=== PATIENT | female | born 1945 | race Caucasian/White ===

== ENCOUNTER 2016-11-20 18:39 | Inpatient (IN) | payer OTHER ==
--- NOTE | 2016-11-20 18:57 | DR.GENAD ---
HPI - PCP Primary Care Physician: james - HPI Comment HPI Comment: INCREASING SOB, PERIPHERAL EDEMA AND LOW OXYGEN SATURATION AND ELEVATED BP FOR FEW DAYS. WORSE TIDAY. HOME MEDICATION IS NOT HELPING. - Complaint/Symptoms Chief Complaint Doctors Comments: CHEST PAIN, SOB TIMES Chief Complaint:: sob started today chest pain mid sterum. ball for a week - Nurses notes reviewed Nurses Notes Review: Yes - Source History Provided: Patient - Mode of Arrival Mode of Arrival: Wheelchair - Timing Onset of Chief Complaint: 11/20/16 Came on: Suddenly - Duration Duration: Constant Duration: Days - Severity Severity: Moderate PMH - PMH Past Medical History: Yes Past Medical History: Coronary Artery Disease, GERD, Hypertension, Hypothyroidism Past Surgical History: Yes Surgical History: Angioplasty/Stents, Cholecystectomy, Hysterectomy - Family History History of Family Medical Conditions: Yes Family Medical History: Diabetes Mellitus, Cancer, Hypertension - Social History Does any household member use tobacco: No Alcohol Use: None Do you use any recreational Drugs:: No Lives With: Family Lives Where: Home - infectious screening In the last 2 months have you had wt loss of >10#?: NO Have you had fever, night sweats or hemotysis?: No Have you traveled outside the country in the last 6 months?: No Isolation: Standard ROS - Review of Systems Constitutional: Weakness, Fatigue. negative: Chills, Fever Eyes: negative: Eye Pain, Discharge ENTM: No Symptoms Reported. negative: Ear Pain, Nose Discharge, Nose Congestion , Throat Pain Respiratoy: Non-Productive Cough, Short of Breath, Wheezing. negative: Productive Cough, Hemoptysis Cardiovascular: Chest Pain, Edema, Palpitations Gastrointestinal/Abdominal: Nausea Genitourinary: negative: Dysuria, Frequency, Hematuria Neurological: Headache, Weakness, Dizziness Musculoskeletal: Joint Pain, Joint Swelling, Muscle Pain Integumentary: negative: [place] Hematologic/Lymphatic: No Symptoms Reported, Easy Bleeding, Easy Bruising Endocrine: No Symptoms Reported All Other Systems: Reviewed and Negative PE - Vital Signs Vitals: Temperature 98.2 F Pulse Rate 120 Respiratory Rate 18 Blood Pressure [Left Arm] 112/61 Blood Pressure 116/78 O2 Sat by Pulse Oximetry 100 - General Limitations: No Limitations General Appearance: Alert - Head Head Exam: Normal Inspection - Eyes Eye exam: Normal Appearance - ENT ENT Exam: Normal External Ear Exam External Ear Exam: Normal External Inspection TM/Canal Exam: Bilateral Normal Nose Exam: Normal Nose Exam Mouth Exam: Normal Inspection Throat Exam: Normal Inspection - Neck Neck Exam: Normal Inspection, Trachea Midline - Chest Chest Inspection: Symmetric Chest Wall Rise - Respiratory Respiratory Exam: Normal Lung Sounds Bilat Respiratory Exam: Bilateral Wheezing, Bilateral Rhonchi, Upper Rhonchi, Lower Wheezing, Lower Rhonchi - Cardiovascular Cardiovascular Exam: Tachycardia - Abdominal Exam Abdominal Exam: Normal Bowel Sounds, Soft. negative: Tenderness - Extremities Extremities Exam: Edema - Neurologic Neurological Exam: Alert, Oriented X3, CN II-XII Intact, Normal Gait, Reflexes Normal. negative: Motor Sensory Deficit - Psychiatric Psychiatric Exam: Normal Affect, Normal Mood, Anxious - Skin Skin Exam: Erythema MDM - Additional Information Additional Information Obtained From: Family - Differential Diagnosis Differential Diagnosis: CHEST PAIN, RESP DISTRESS, CHF, COPD, PNEUMONIA Course - Treatment Treatment: SEE ORDERS - Consultation Consultation Comments: DISCUSS PATIENT WITH DR. LEON. HE WILL ADMIT PATIENT. - Education/Counseling Education/Counseling: Patient, Family, Education Educated On: Treatment, Diagnosis, Needs for Follow Up ROR - Labs Reviewed Laboratory Results Reviewed?: Yes Result Diagrams: 11/21/16 04:50 11/21/16 04:50 Laboratory: WBC 4.8 X10^3/uL (3.6-10.0) 11/20/16 19:08 RBC 3.48 X10^6/uL (3.5-5.4) L 11/20/16 19:08 Hgb 9.4 g/dL (12.0-16.0) L 11/20/16 19:08 Hct 28.5 % (36.0-47.0) L 11/20/16 19:08 MCV 81.8 fL (80.0-100.0) 11/20/16 19:08 MCH 27.0 pg (27.0-34.0) 11/20/16 19:08 MCHC 33.0 g/dL (33.0-35.0) 11/20/16 19:08 RDW 15.1 % (11.6-16.5) 11/20/16 19:08 Plt Count 195 X10^3/uL (150.0-450.0) 11/20/16 19:08 MPV 7.9 fL (7.4-11.0) 11/20/16 19:08 Neut % 70.6 % (42.0-75.0) 11/20/16 19:08 Lymph % 19.1 % (21.0-51.0) L 11/20/16 19:08 [place] % 7.3 % (0.0-13.0) 11/20/16 19:08 Eos % 2.2 % (0.9-2.9) 11/20/16 19:08 Baso % 0.8 % (0.2-1.0) 11/20/16 19:08 Neut # 3.4 x10^3/uL (2.2-4.8) 11/20/16 19:08 Lymph # 0.9 X10^3/uL (1.3-2.9) L 11/20/16 19:08 [place] # 0.4 x10^3/uL (0.3-0.8) 11/20/16 19:08 Eos # 0.1 x10^3/uL (0.0-0.2) 11/20/16 19:08 Baso # 0.0 X10^3/uL (0.0-0.1) 11/20/16 19:08 Absolute Nucleated RBC 0.1 /100WBC 11/20/16 19:08 B-Natriuretic Peptide 194 pg/mL (0-79) H 11/20/16 19:08 - XRAY XRAY Interpreted by: Radiologist - EKG Rhythm: Afib (CONTROL RATE.) - Diagnosis Discharge Problem: Bronchitis CHF (congestive heart failure) Qualifiers: Congestive heart failure type: combined Congestive heart failure chronicity: acute on chronic Qualified Code(s): I50.43 - Acute on chronic combined systolic (congestive) and diastolic (congestive) heart failure Chest pain Qualifiers: Chest pain type: precordial pain Qualified Code(s): R07.2 - Precordial pain - Discharge Plan Disposition: ADMITTED INPATIENT Condition: Stable - Follow ups/Referrals - Instructions
[2016-11-20 19:20] LABS: BASOPHILS % (AUTO) 0.8 % (0.2-1.0); EOSINOPHILS # (AUTO) 0.1 x10^3/uL (0.0-0.2); EOSINOPHILS % (AUTO) 2.2 % (0.9-2.9); HEMATOCRIT 28.5 % (36.0-47.0); HEMOGLOBIN 9.4 g/dL (12.0-16.0); LYMPHOCYTES # (AUTO) 0.9 X10^3/uL (1.3-2.9); LYMPHOCYTES % (AUTO) 19.1 % (21.0-51.0); MEAN CORPUSCULAR VOLUME 81.8 fL (80.0-100.0); MEAN PLATELET VOLUME 7.9 fL (7.4-11.0); MONOCYTES # (AUTO) 0.4 x10^3/uL (0.3-0.8); MONOCYTES % (AUTO) 7.3 % (0.0-13.0); NEUTROPHILS # (AUTO) 3.4 x10^3/uL (2.2-4.8); NEUTROPHILS % (AUTO) 70.6 % (42.0-75.0); PLATELET COUNT 195 X10^3/uL (150.0-450.0); RED BLOOD COUNT 3.48 X10^6/uL (3.5-5.4); RED CELL DISTRIBUTION WIDTH 15.1 % (11.6-16.5); WHITE BLOOD COUNT 4.8 X10^3/uL (3.6-10.0)
[2016-11-20 19:32] LABS: B-TYPE NATRIURETIC PEPTIDE 194 pg/mL (0-79)
[2016-11-20 19:32] LABS: BILIRUBIN,URINE NEGATIVE (NEGATIVE); BLOOD/HEMOGLOBIN,URINE NEGATIVE (NEGATIVE); GLUCOSE, URINE NEGATIVE (NEGATIVE); KETONES,URINE NEGATIVE (NEGATIVE); LEUKOCYTE ESTERASE ,URINE NEGATIVE (NEGATIVE); NITRITES,URINE NEGATIVE (NEGATIVE); PROTEIN,URINE 1+ (NEGATIVE); UROBILINOGEN,URINE NORMAL (NORMAL)
[2016-11-20 19:36] LABS: BLOOD UREA NITROGEN 14 mg/dL (7-18); CALCIUM 8.8 mg/dL (8.5-10.1); CARBON DIOXIDE 28.8 mmol/L (21-32); CHLORIDE 106 mmol/L (98-107); CREATININE 0.72 mg/dL (0.55-1.02); SODIUM 142 mmol/L (136-145); TROPONIN I 0.02 ng/mL (0-1.5); eGFR BLACK RACES > 60 (>60); eGFR NON BLACK RACES > 60 (>60)
[2016-11-20] MEDS ORDERED: MORPHINE SULFATE INJ 4 MG ONE ×2 (19:39→21:04)
[2016-11-20] MEDS ORDERED: ZOFRAN INJ 4 MG VIAL ONE (19:39)
[2016-11-20] MEDS ORDERED: MORPHINE SULFATE INJ 4 MG IVP ONE ×2 (19:39→20:56)
[2016-11-20] MEDS ORDERED: ZOFRAN INJ 4 MG VIAL IVP ONE ×2 (19:39→21:30)
--- NOTE | 2016-11-20 19:39 | RAD ---
HISTORY: 71-year-old female with chest pain and shortness of breath. Study: Frontal view of the chest. Comparison: Chest radiographs November 18, 2015 Findings: The trachea is midline. Interval exacerbation of cardiomegaly with moderate bilateral pulmonary roosevelt a. No focal consolidation, effusion or pneumothorax with low lung volumes. Soft tissues are unremarka ble. Osseous structures are unremarkable. IMPRESSION: 1. Exacerbation of cardiomegaly with moderate pulmonary edema. Reported By:
[2016-11-20 19:40] LABS: AMORPHOUS SEDIMENT,UR TRACE /HPF (NEGATIVE); APPEARANCE,URINE CLEAR (CLEAR); BACTERIA,URINE 1+ /HPF (NEGATIVE); COLOR,URINE PALE YELLOW (YELLOW); RBC,URINE 0-1 /HPF (NEGATIVE); SQUAMOUS EPITHELIAL CELL,UR MANY /HPF (NEGATIVE)
[2016-11-20 19:40] LABS: ALANINE AMINOTRANSFERASE 15 Units/L (12-78); ALBUMIN 3.7 g/dL (3.4-5.0); ALKALINE PHOSPHATASE 62 Units/L (46-116); ASPARTATE AMINO TRANSFERASE 10 Units/L (15-37); CREATINE KINASE 49 Units/L (26-192); CREATINE KINASE MB < 1.0 ng/mL (0-4.0)
[2016-11-20] MEDS ORDERED: LASIX IVP ONE ×2 (20:07→20:08)
--- NOTE | 2016-11-20 20:20 | CT ---
CT HEAD WITHOUT CONTRAST CLINICAL HISTORY: 71-year-old female with severe headache. COMPARISON: None. TECHNIQUE: Multiple, non-contrasted axial CT images were obtained from the skull base to the cranial vertex. Coronal and sagittal reformats were performed. FINDINGS: There are no abnormal intra- or extra-axial fluid collections, midline shift, or mass effec t. Lee-white differentiation is normal. Partially empty sella. Global cortical involutional changes are present that are the advanced for the patient's stated age. The ventricular system is mildly enla rged but commensurate with the degree of sulcal prominence. Periventricular and supraventricular whit e matter hypodensity is present that is nonspecific in appearance, but most likely to represent micro vascular ischemic changes. Atherosclerotic vascular calcification is present within the carotid sipho ns and distal vertebral arteries. The imaged paranasal sinuses, mastoid air cells, and tympanic spaces are clear. IMPRESSION: 1. No definite evidence of an acute intracranial process. If clinical concern persists, consider MRI/ MRA brain. 2. Moderate microvascular white matter ischemic changes, with associated volume loss. Reported By:
[2016-11-20] MEDS ORDERED: PEPCID 20 MG IV PREMIX* 20 MG/50 ML BAG IV ONE ×2 (20:56→21:03)
[2016-11-20] MEDS ORDERED: NS 250 ML IV 250 ML IV ONE (21:04)
[2016-11-20] MEDS ORDERED: ROCEPHIN VIAL 1 GM 1 GM in NS 50 ML IV + SPIKE MINIBAG* 50 ML IV SCH (21:45)
[2016-11-20] MEDS ORDERED: ROCEPHIN 1 GM IV PREMIX * OUT OF STOCK 50 ML IV ONE (21:59)
[2016-11-20] MEDS: TYLENOL 325 MG TAB PO PRN (22:31)
[2016-11-20 23:24] VITALS: BMI 32.1
[2016-11-20] MEDS: PEPCID 20 MG IV PREMIX* 20 MG/50 ML BAG IV SCH (23:34)
[2016-11-21 01:13] LABS: CKMB % 1.9 % (<4); CREATINE KINASE 54 Units/L (26-192); CREATINE KINASE MB < 1.0 ng/mL (0-4.0); TROPONIN I 0.02 ng/mL (0-1.5)
[2016-11-21 05:18] LABS: BASOPHILS % (AUTO) 0.8 % (0.2-1.0); EOSINOPHILS # (AUTO) 0.1 x10^3/uL (0.0-0.2); EOSINOPHILS % (AUTO) 1.4 % (0.9-2.9); HEMATOCRIT 30.4 % (36.0-47.0); HEMOGLOBIN 10.1 g/dL (12.0-16.0); LYMPHOCYTES # (AUTO) 0.8 X10^3/uL (1.3-2.9); MEAN CORPUSCULAR HGB CONC 33.3 g/dL (33.0-35.0); MEAN CORPUSCULAR VOLUME 81.2 fL (80.0-100.0); MONOCYTES # (AUTO) 0.5 x10^3/uL (0.3-0.8); MONOCYTES % (AUTO) 9.6 % (0.0-13.0); NEUTROPHILS # (AUTO) 3.5 x10^3/uL (2.2-4.8); NEUTROPHILS % (AUTO) 71.2 % (42.0-75.0); PLATELET COUNT 191 X10^3/uL (150.0-450.0); RED BLOOD COUNT 3.74 X10^6/uL (3.5-5.4); WHITE BLOOD COUNT 4.9 X10^3/uL (3.6-10.0)
[2016-11-21 05:26] LABS: ALANINE AMINOTRANSFERASE 14 Units/L (12-78); ALBUMIN 3.6 g/dL (3.4-5.0); ALKALINE PHOSPHATASE 57 Units/L (46-116); ASPARTATE AMINO TRANSFERASE 13 Units/L (15-37); BLOOD UREA NITROGEN 11 mg/dL (7-18); CALCIUM 8.8 mg/dL (8.5-10.1); CHLORIDE 105 mmol/L (98-107); CHOL/HDL RATIO 2.2 (0.0-5.0); CHOLESTEROL 114 mg/dL (0-200); CREATININE 0.82 mg/dL (0.55-1.02); HDL CHOLESTEROL 52 mg/dL (40-60); MAGNESIUM 1.8 mg/dL (1.7-2.9); SODIUM 144 mmol/L (136-145); TOTAL PROTEIN 6.9 g/dL (6.4-8.2); TRIGLYCERIDES 78 mg/dL (0-150); eGFR BLACK RACES > 60 (>60); eGFR NON BLACK RACES > 60 (>60)
[2016-11-21] MEDS: MORPHINE SULFATE INJ 4 MG IVP PRN ×4 (05:27→17:50)
[2016-11-21 08:17] LABS: CKMB % 0.9 % (<4); CREATINE KINASE 107 Units/L (26-192); CREATINE KINASE MB < 1.0 ng/mL (0-4.0); TROPONIN I 0.02 ng/mL (0-1.5)
[2016-11-21] MEDS: LASIX IVP SCH ×2 (08:50→21:12)
[2016-11-21] MEDS: PEPCID 20 MG IV PREMIX* 20 MG/50 ML BAG IV SCH ×2 (08:50→21:23)
[2016-11-21] MEDS: TYLENOL 325 MG TAB PO PRN (08:58)
[2016-11-21] MEDS ORDERED: XARELTO PO SCH (10:00)
[2016-11-21] MEDS: ROCEPHIN VIAL 1 GM 1 GM in NS 50 ML IV 50 ML IV SCH (10:26)
[2016-11-21] MEDS ORDERED: KLONOPIN TAB 0.5 MG PO PRN (10:45)
[2016-11-21] MEDS ORDERED: K-RIDER 10 MEQ/NS 100 ML 10 MEQ/100 ML BAG IV PRN (10:49)
[2016-11-21] MEDS ORDERED: K-LYTE EFFERVESCENT PO PRN (10:49)
[2016-11-21] MEDS ORDERED: K-DUR TAB 20 MEQ PO PRN (10:49)
[2016-11-21] MEDS ORDERED: POTASSIUM CHLORIDE LIQ 20 MEQ UDC PO PRN (10:49)
[2016-11-21] MEDS: ASPIRIN EC 81 MG PO SCH (12:03)
[2016-11-21] MEDS: COREG TAB 12.5 MG PO SCH ×2 (12:04→21:12)
[2016-11-21] MEDS: PROTONIX TAB 40 MG PO SCH ×2 (12:04→21:11)
[2016-11-21] MEDS: SYNTHROID 112 mcg TAB PO SCH (12:04)
[2016-11-21] MEDS ORDERED: PATIENT'S HOME MEDICATION (Hydralazine Hcl [Hydralazine Hcl 50 Mg] 50 MG) PO SCH (14:00)
[2016-11-21] MEDS: APRESOLINE TAB 25 MG PO SCH ×2 (14:36→21:11)
[2016-11-21] MEDS: NORCO 10/325 TAB PO PRN (15:01)
[2016-11-21] MEDS: ELIQUIS PO SCH ×2 (17:00→21:11)
--- NOTE | 2016-11-21 21:04 | DR.H&P ---
H&P - History & Physical for Day of: H&P Date: 11/20/16 - Chief Complaint Chief Complaint: CHEST PAIN, SHORT OF BREATH - Allergies Allergies/Adverse Reactions: Allergies Allergy/AdvReac Type Severity Reaction Status Date / Time No Known Drug Allergies Allergy Verified 11/20/16 18:44 - History of Present Illness History of Present Illness: is a 71 year old patient of ours who presented to the emergency room with reports of increasing shortness of breath. Patient reports symptoms started gradually three weeks ago and became worse today. Associated symptoms are chest pain that is located at mid sternum, lower extremity edema, headache, elevated blood pressure and decreased oxygen saturation. Patient rates pain to head as an 8/10. She was noted with rhonchi and wheezing in bilateral lung [place]. On arrival to the ER, vitals were 98.2, 120, 18, 100% RA, 116/78. A CBC, CMP, Chest xray, brain CT, and EKG were obtained. Abnormal lab values include the followin.48, Hgb 9.4, Hct 28.5, Glucose 104, AST 10, BNP 194. Urinalysis reported: Protein 1+, RBC 0-1, WBC 0-2 , Bacteria 1+, Culture Pending. Chest xray revealed: Exacerbation of cardiomegaly with moderate pulmonary edema. Brain CT reported: No definite evidence of an acute intracranial process. If clinical concern persists, consider MRI/MRA brain. Moderate microvascular white matter ischemic changes, with associated volume loss. Patients EKG revealed atrial fibrillation with no known history. Rate is noted to be controlled at this time. We admitted patient for further treatment and evaluation of pulmonary edema and congestive heart failure. Will follow up with labs in the morning and obtain serial cardiac enzymes and EKGs. - Past Medical History Past Medical History: Coronary Artery Disease, GERD, Hypertension, Hypothyroidism - Past Surgical History Surgical History: Angioplasty/Stents, Cholecystectomy, Hysterectomy - Family History Family Medical History: Diabetes Mellitus, Cancer, Hypertension - Social History Does patient currently use any type of tobacco product: No Have you used tobacco products in the last 12 months: No Type of Tobacco Use: None Does any household member use tobacco: No Alcohol Use: None Drug Use: None - Medications Home Medications: Aspirin EC [ASPIRIN EC 81 MG *] 81 mg PO DAILY 11/20/16 [History Confirmed 11/20] Carvedilol [Coreg Tab 12.5 mg] 12.5 mg PO BID 11/20/16 [History Confirmed ] Clonazepam [Klonopin Tab 0.5 mg] 0.25 mg PO BID PRN 11/20/16 [History Confirmed 11/20/16] Clonazepam [Klonopin Tab 0.5 mg] 1 - 2 tabs PO HS PRN 11/20/16 [History Confirmed 11/20/16] Furosemide [LASIX TAB 20 MG *] 1 tab PO DAILY 11/20/16 [History Confirmed ] Hydralazine HCl [Hydralazine HCl 50 mg] 50 mg PO TID 11/20/16 [History Confirmed 11/20/16] Hydrocodone/Acetaminophen [Hydrocodone/Acetaminophen 10-325 mg] 1 tab PO QID [History Confirmed 11/20/16] Isosorbide Mononitrate [IMDUR 30 MG *] 1 tab PO DAILY 11/20/16 [History Confirmed 11/20/16] Levothyroxine Sodium [SYNTHROID 112 mcg *] 1 tab PO DAILY 11/20/16 [History Confirmed 11/20/16] Pantoprazole Sodium [Protonix] 40 mg PO BID 11/20/16 [History Confirmed 11/20/16 ] Potassium Chloride [Micro K Exten Cap 10 Meq] 10 meq PO DAILY 11/20/16 [History Confirmed 11/20/16] - Review of Systems Constitutional: No Symptoms Reported Eyes: No Symptoms Reported ENT: No Symptoms Reported Respiratory: See HPI, Cough, Shortness of Breath, Wheezing Cardiovascular: Chest Pain Gastrointestinal: Nausea Neurological: See HPI - Physical Exam Vital Signs: Temperature 98.3 F Pulse Rate [Apical] 87 Pulse Rate 120 Respiratory Rate 20 Blood Pressure [Right Arm] 131/66 Blood Pressure [Left Arm] 112/61 Blood Pressure 116/78 O2 Sat by Pulse Oximetry 98 Oriented: Normal Eyes: Blurred Vision Ear: Normal Nose: Normal Throat: Normal Respiratory: Wheezes Throughout Cardiovascular: Tachycardia : Normal Auscultation: Bowel Sounds: Normal Palpation: Normal Tenderness: Normal Skin: Red Musculoskeletal: Normal Psychiatric: Normal Mood Description: Calm Affect: Normal Speech Pattern: Clear - Assessment/Plan (1) Atrial fibrillation Qualifiers: Atrial fibrillation type: unspecified Qualified Code(s): I48.91 - Unspecified atrial fibrillation Status: Acute (2) CHF (congestive heart failure) Qualifiers: Congestive heart failure type: combined Congestive heart failure chronicity : acute on chronic Qualified Code(s): I50.43 - Acute on chronic combined systolic (congestive) and diastolic (congestive) heart failure Status: Acute (3) Chest pain Qualifiers: Chest pain type: precordial pain Qualified Code(s): R07.2 - Precordial pain Status: Acute
[2016-11-21] MEDS: KLONOPIN TAB 0.5 MG PO PRN (21:21)
[2016-11-22] MEDS: APRESOLINE TAB 25 MG PO SCH ×3 (05:25→21:07)
[2016-11-22] MEDS: NORCO 10/325 TAB PO PRN ×3 (05:28→17:01)
[2016-11-22 05:44] LABS: BASOPHILS % (AUTO) 0.7 % (0.2-1.0); EOSINOPHILS # (AUTO) 0.1 x10^3/uL (0.0-0.2); EOSINOPHILS % (AUTO) 1.6 % (0.9-2.9); HEMATOCRIT 35.6 % (36.0-47.0); HEMOGLOBIN 11.8 g/dL (12.0-16.0); LYMPHOCYTES % (AUTO) 16.1 % (21.0-51.0); MEAN CORPUSCULAR HEMOGLOBIN 27.7 pg (27.0-34.0); MEAN PLATELET VOLUME 8.3 fL (7.4-11.0); MONOCYTES # (AUTO) 0.7 x10^3/uL (0.3-0.8); MONOCYTES % (AUTO) 11.1 % (0.0-13.0); NEUTROPHILS # (AUTO) 4.4 x10^3/uL (2.2-4.8); NEUTROPHILS % (AUTO) 70.5 % (42.0-75.0); PLATELET COUNT 207 X10^3/uL (150.0-450.0); RED BLOOD COUNT 4.24 X10^6/uL (3.5-5.4); RED CELL DISTRIBUTION WIDTH 14.8 % (11.6-16.5); WHITE BLOOD COUNT 6.3 X10^3/uL (3.6-10.0)
[2016-11-22 05:57] LABS: ALANINE AMINOTRANSFERASE 14 Units/L (12-78); ALBUMIN 3.6 g/dL (3.4-5.0); ALKALINE PHOSPHATASE 60 Units/L (46-116); ASPARTATE AMINO TRANSFERASE 12 Units/L (15-37); BLOOD UREA NITROGEN 15 mg/dL (7-18); CALCIUM 8.8 mg/dL (8.5-10.1); CARBON DIOXIDE 32.2 mmol/L (21-32); CHLORIDE 103 mmol/L (98-107); CREATININE 1.05 mg/dL (0.55-1.02); SODIUM 143 mmol/L (136-145); eGFR BLACK RACES > 60 (>60); eGFR NON BLACK RACES 55 (>60)
--- NOTE | 2016-11-22 06:10 | RAD ---
HISTORY: Chest pain Study: Chest AP portable Comparison: November 20, 2016 Findings: The trachea is midline. The cardiac silhouette is enlarged. No congestive heart failure is noted.. The lungs are clear without focal infiltrate or effusion. The bony thorax is unremarkable. IMPRESSION: 1. Cardiomegaly without congestive heart failure 2. No infiltrates Reported By:
[2016-11-22] MEDS ORDERED: K-RIDER 10 MEQ/NS 100 ML 10 MEQ/100 ML BAG IV PRN ×2 (06:32→10:19)
[2016-11-22] MEDS ORDERED: POTASSIUM CHLORIDE LIQ 20 MEQ UDC PO PRN ×2 (06:32→10:19)
[2016-11-22] MEDS ORDERED: K-DUR TAB 20 MEQ PO PRN (06:32)
[2016-11-22] MEDS ORDERED: K-LYTE EFFERVESCENT PO PRN ×2 (06:32→10:19)
[2016-11-22] MEDS: KLONOPIN TAB 0.5 MG PO PRN ×2 (07:59→21:58)
[2016-11-22] MEDS: MORPHINE SULFATE INJ 4 MG IVP PRN ×3 (07:59→21:59)
[2016-11-22] MEDS: ROCEPHIN VIAL 1 GM 1 GM in NS 50 ML IV 50 ML IV SCH (08:38)
[2016-11-22] MEDS: PROTONIX TAB 40 MG PO SCH ×2 (08:39→20:24)
[2016-11-22] MEDS: ELIQUIS PO SCH ×2 (08:39→20:24)
[2016-11-22] MEDS: ASPIRIN EC 81 MG PO SCH (08:39)
[2016-11-22] MEDS: SYNTHROID 112 mcg TAB PO SCH (08:39)
[2016-11-22] MEDS: LASIX IVP SCH ×2 (08:39→20:23)
[2016-11-22] MEDS: PEPCID 20 MG IV PREMIX* 20 MG/50 ML BAG IV SCH ×2 (08:39→20:24)
[2016-11-22] MEDS: COREG TAB 12.5 MG PO SCH ×2 (08:39→20:24)
[2016-11-22] MEDS ORDERED: IMDUR PO SCH (09:00)
[2016-11-22] MEDS ORDERED: NS 250 ML IV 250 ML IV ONE ×4 (09:38→22:04)
[2016-11-22 09:44] LABS: CKMB % 2.4 % (<4); CREATINE KINASE 42 Units/L (26-192); CREATINE KINASE MB < 1.0 ng/mL (0-4.0); TROPONIN I < 0.02 ng/mL (0-1.5)
[2016-11-22] MEDS ORDERED: LANOXIN INJ IVP ONE (10:19)
[2016-11-22] MEDS ORDERED: TYLENOL 325 MG TAB PO PRN (10:19)
[2016-11-22] MEDS ORDERED: KLONOPIN TAB 0.5 MG PO PRN (10:19)
[2016-11-22] MEDS ORDERED: CARDIZEM INJ 125 MG VIAL ONE (10:23)
[2016-11-22] MEDS ORDERED: NS 100 ML IV 100 ML IV ONE (10:26)
[2016-11-22] MEDS ORDERED: CARDIZEM INJ 125 MG VIAL 125 MG in NS 100 ML IV 100 ML IV PRN (10:35)
[2016-11-22 13:03] LABS: CKMB % 2.6 % (<4); CREATINE KINASE 38 Units/L (26-192); CREATINE KINASE MB < 1.0 ng/mL (0-4.0); TROPONIN I 0.02 ng/mL (0-1.5)
[2016-11-22 16:36] LABS: CKMB % 3.1 % (<4); CREATINE KINASE 32 Units/L (26-192); CREATINE KINASE MB < 1.0 ng/mL (0-4.0); TROPONIN I 0.02 ng/mL (0-1.5)
--- NOTE | 2016-11-22 18:32 | PCM.PROG ---
Progress Note - Progress Note for Day of Date: 11/21/16 - Subjective Subjective: WAS ADMITTED FOR PULMONARY EDEMA, CHF, CHEST PAIN, AND ATRIAL FIBRILLATION. TODAY, SHE IS ALERT AND ORIENTED, LYING IN BED ON MORNING ROUNDS. SHE VOICES COMPLAINTS OF SHORTNESS OF BREATH AND CHEST PAIN. PATIENT REPORTS THAT PAIN IS MID STERNUM AND COMES AND GOES. ON EXAMINATION, LUNGS ARE NOTED WITH WHEEZING BILATERALLY TO AUSCULTATION. ABDOMEN IS ROUND, SOFT, AND NON -TENDER. SHE IS NOTED ON NASAL CANNULA WITH OXYGEN AT 2LPM. SHE IS NOTED ON TELEMERY. HER VITAL SIGNS THIS MORNING ARE 97.7-85-18-100%-132/82. CBC, CMP, AND EKG WERE OBTAINED. ABNORMAL LABS INCLUDE THE FOLLOWING: HGB 10.1, HCT 30.4, POTASSIUM 3.2, AST 13. CARDIAC ENZYMES WERE NEGATIVE. LATEST EKG REPORTED ATRIAL FIBRILLATION, NONSPECIFIC INTRAVENTRICULAR CONDUCTION DELAY, MINIMAL ST DEPRESSION. HEART RATE 72 AT THE CURRENT TIME. PATIENT REPORTS A CARDIAC HISTORY , BUT DOESNT RECALL EVER BEING DIAGNOSED WITH ATRIAL FIBRILLATION. PATIENT IS CURRENTLY UNDER THE CARE OF IN [place]. WE WILL START PATIENT ON ELIQUIS 5MG PO BID, OBTAIN AN ECHOCARDIOGRAM, AND REPEAK EKGs. WE WILL OBTAIN A CBC, CMP, AND CHEST XRAY IN THE MORNING AND CONTINUE TO MONITOR PATIENT. - Past Medical Family Social History Past Med/Fam/Surg Hx: No changes since H&P Allergies: Allergies No Known Drug Allergies Allergy (Verified 11/20/16 18:44) - Review of Systems ROS: No change since H&P - Vital Signs and I&O's Vital Signs: Temperature 97.8 F Pulse Rate [Apical] 69 Pulse Rate 141 Respiratory Rate 16 Blood Pressure [Right Arm] 102/76 Blood Pressure [Left Arm] 112/61 Blood Pressure 116/78 O2 Sat by Pulse Oximetry 97 Intake and Output: Intake & Output 11/20/16 11/21/16 11/22/16 11/23/16 11:59 11:59 11:59 11:59 Intake Total 120 1098 337 Output Total 5150 1700 Balance -4880 -732 337 - Physical Exam Oriented: Normal Eyes: Blurred Vision Ear: Normal Nose: Normal Throat: Normal Respiratory: Generalized, Wheezes Cardiovascular: Tachycardia : Normal Auscultation: Bowel Sounds: Normal Palpation: Normal Tenderness: Normal Skin: Normal, Red Musculoskeletal: Normal Psychiatric: Normal Mood Description: Calm Affect: Normal Speech Pattern: Clear, Appropriate - Laboratory and Diagnostics Result Diagrams: 11/22/16 03:20 11/22/16 12:26 Labs: 11/20/16 20:18 Urine,[place] Urine Culture - Final Laboratory WBC 6.3 X10^3/uL (3.6-10.0) 11/22/16 03:20 RBC 4.24 X10^6/uL (3.5-5.4) 11/22/16 03:20 Hgb 11.8 g/dL (12.0-16.0) L 11/22/16 03:20 Hct 35.6 % (36.0-47.0) L 11/22/16 03:20 MCV 84.0 fL (80.0-100.0) 11/22/16 03:20 MCH 27.7 pg (27.0-34.0) 11/22/16 03:20 MCHC 33.0 g/dL (33.0-35.0) 11/22/16 03:20 RDW 14.8 % (11.6-16.5) 11/22/16 03:20 Plt Count 207 X10^3/uL (150.0-450.0) 11/22/16 03:20 MPV 8.3 fL (7.4-11.0) 11/22/16 03:20 Neut % 70.5 % (42.0-75.0) 11/22/16 03:20 Lymph % 16.1 % (21.0-51.0) L 11/22/16 03:20 [place] % 11.1 % (0.0-13.0) 11/22/16 03:20 Eos % 1.6 % (0.9-2.9) 11/22/16 03:20 Baso % 0.7 % (0.2-1.0) 11/22/16 03:20 Neut # 4.4 x10^3/uL (2.2-4.8) 11/22/16 03:20 Lymph # 1.0 X10^3/uL (1.3-2.9) L 11/22/16 03:20 [place] # 0.7 x10^3/uL (0.3-0.8) 11/22/16 03:20 Eos # 0.1 x10^3/uL (0.0-0.2) 11/22/16 03:20 Baso # 0.0 X10^3/uL (0.0-0.1) 11/22/16 03:20 Absolute Nucleated RBC 0.1 /100WBC 11/22/16 03:20 INR Target Range - 11/21/16 04:50 INR 1.13 (0.8-1.3) 11/21/16 04:50 PTT 33.6 SECONDS (22.9-36.5) 11/21/16 04:50 PTT Comment - 11/21/16 04:50 Sodium 143 mmol/L (136-145) 11/22/16 03:20 Corrected Sodium TNP 11/22/16 03:20 Potassium 4.1 mmol/L (3.5-5.1) 11/22/16 12:26 Chloride 103 mmol/L (98-107) 11/22/16 03:20 Carbon Dioxide 32.2 mmol/L (21-32) H 11/22/16 03:20 BUN 15 mg/dL (7-18) 11/22/16 03:20 Creatinine 1.05 mg/dL (0.55-1.02) H 11/22/16 03:20 Est GFR (MDRD) Af Amer > 60 (>60) 11/22/16 03:20 Est GFR (MDRD) Non-Af 55 (>60) L 11/22/16 03:20 Glucose 103 mg/dL (65-99) H 11/22/16 03:20 Calcium 8.8 mg/dL (8.5-10.1) 11/22/16 03:20 Corrected Calcium TNP 11/22/16 03:20 Magnesium 1.8 mg/dL (1.7-2.9) 11/21/16 04:50 Total Bilirubin 0.60 mg/dL (0.2-1.0) 11/22/16 03:20 AST 12 Units/L (15-37) L 11/22/16 03:20 ALT 14 Units/L (12-78) 11/22/16 03:20 Alkaline Phosphatase 60 Units/L (46-116) 11/22/16 03:20 Creatine Kinase 32 Units/L (26-192) 11/22/16 15:49 CK-MB (CK-2) < 1.0 ng/mL (0-4.0) 11/22/16 15:49 CK/CKMB % Calc 3.1 % (<4) 11/22/16 15:49 Troponin I 0.02 ng/mL (0-1.5) 11/22/16 15:49 B-Natriuretic Peptide 194 pg/mL (0-79) H 11/20/16 19:08 Total Protein 7.0 g/dL (6.4-8.2) 11/22/16 03:20 Albumin 3.6 g/dL (3.4-5.0) 11/22/16 03:20 Globulin 3.4 g/dL (2.5-4.5) 11/22/16 03:20 Albumin/Globulin Ratio 1.1 Ratio (1.1-2.1) 11/22/16 03:20 Triglycerides 78 mg/dL (0-150) 11/21/16 04:50 Cholesterol 114 mg/dL (0-200) 11/21/16 04:50 LDL Cholesterol, Calc 46 mg/dL (0-100) 11/21/16 04:50 HDL Cholesterol 52 mg/dL (40-60) 11/21/16 04:50 Cholesterol/HDL Ratio 2.2 (0.0-5.0) 11/21/16 04:50 Specimen Type Clean catch urine 11/20/16 19:25 Urine Color Pale yellow (YELLOW) 11/20/16 19:25 Urine Appearance Clear (CLEAR) 11/20/16 19:25 Urine pH 7.0 (5.0 - 8.0) 11/20/16 19:25 Ur Specific [place] 1.010 (1.000-1.030) 11/20/16 19:25 Urine Protein 1+ (NEGATIVE) 11/20/16 19:25 Urine Glucose (UA) Negative (NEGATIVE) 11/20/16 19:25 Urine Ketones Negative (NEGATIVE) 11/20/16 19:25 Urine Occult Blood Negative (NEGATIVE) 11/20/16 19:25 Urine Nitrite Negative (NEGATIVE) 11/20/16 19:25 Urine Bilirubin Negative (NEGATIVE) 11/20/16 19:25 Urine Urobilinogen Normal (NORMAL) 11/20/16 19:25 Ur Leukocyte Esterase Negative (NEGATIVE) 11/20/16 19:25 Urine RBC 0-1 /HPF (NEGATIVE) 11/20/16 19:25 Urine WBC 0-2 /HPF (NEGATIVE) 11/20/16 19:25 Ur Squamous Epith Cells Many /HPF (NEGATIVE) 11/20/16 19:25 Amorphous Sediment Trace /HPF (NEGATIVE) 11/20/16 19:25 Urine Bacteria 1+ /HPF (NEGATIVE) 11/20/16 19:25 Ur Culture Indicated? No/not indicated 11/20/16 19:25 - Plan (1) CHF (congestive heart failure) Status: Acute Qualifiers: Congestive heart failure type: combined Congestive heart failure chronicity : acute on chronic Qualified Code(s): I50.43 - Acute on chronic combined systolic (congestive) and diastolic (congestive) heart failure Plan: lasix 40mg iv bid, duonebs, supplemental oxygen, continue to monitor (2) Atrial fibrillation Status: Acute Qualifiers: Atrial fibrillation type: unspecified Qualified Code(s): I48.91 - Unspecified atrial fibrillation Plan: eliquis 5mg po bid, telemetry, continue to monitor
--- NOTE | 2016-11-22 18:33 | PCM.PROG ---
Progress Note - Progress Note for Day of Date: 11/22/16 - Subjective Subjective: WAS ADMITTED FOR PULMONARY EDEMA, CHF, CHEST PAIN, AND ATRIAL FIBRILLATION. TODAY, SHE IS ALERT AND ORIENTED, LYING IN BED ON MORNING ROUNDS. SHE VOICES COMPLAINTS OF SHORTNESS OF BREATH, CHEST PAIN, AND FEELS LIKE HER HEART IS RACING. PATIENT IS NOTED ON TELEMETRY. ATRIAL FIBRILLATION IS NOTED WITH HR 120-130BPM. ON EXAMINATION, LUNGS ARE NOTED WITH WHEEZING BILATERALLY TO AUSCULTATION. ABDOMEN IS ROUND, SOFT, AND NON-TENDER. SHE IS NOTED ON NASAL CANNULA WITH OXYGEN AT 2LPM. SHE IS NOTED ON TELEMERY. HER VITAL SIGNS THIS MORNING ARE 98.2-131-18-96%-116/86. CBC, CMP, CARDIAC PROFILE, AND EKG WERE OBTAINED. ABNORMAL LABS INCLUDE THE FOLLOWING: HGB 11.8, HCT 35.6, POTASSIUM 3.1, CARBON DIOXIDE 32.2, AST 12. CARDIAC ENZYMES WERE NEGATIVE. LATEST EKG REPORTED ATRIAL FIBRILLATION. WE WILL TRANSFER PATIENT TO ICU AND START CARDIZEM DRIP PER PROTOCOL. WE WILL BOLUS WITH DIGOXIN 0.5MG IV. WE WILL OBTAIN A CBC, CMP, DIGOXIN LEVEL, EKG, AND CHEST XRAY IN THE MORNING AND CONTINUE TO MONITOR PATIENT. - Past Medical Family Social History Past Med/Fam/Surg Hx: No changes since H&P Allergies: Allergies No Known Drug Allergies Allergy (Verified 11/20/16 18:44) - Review of Systems ROS: No change since H&P - Vital Signs and I&O's Vital Signs: Temperature 97.8 F Pulse Rate [Apical] 69 Pulse Rate 141 Respiratory Rate 16 Blood Pressure [Right Arm] 102/76 Blood Pressure [Left Arm] 112/61 Blood Pressure 116/78 O2 Sat by Pulse Oximetry 97 Intake and Output: Intake & Output 11/20/16 11/21/16 11/22/16 11/23/16 11:59 11:59 11:59 11:59 Intake Total 120 1098 337 Output Total 5150 1700 Balance -5030 -602 337 - Physical Exam Oriented: Normal Eyes: Blurred Vision Ear: Normal Nose: Normal Throat: Normal Respiratory: Generalized, Wheezes Cardiovascular: Tachycardia : Normal Auscultation: Bowel Sounds: Normal Tenderness: Normal Skin: Normal, Red Musculoskeletal: Normal Psychiatric: Normal Mood Description: Calm Affect: Normal Speech Pattern: Clear, Appropriate - Laboratory and Diagnostics Result Diagrams: 11/22/16 03:20 11/22/16 12:26 Labs: 11/20/16 20:18 Urine,[place] Urine Culture - Final Laboratory WBC 6.3 X10^3/uL (3.6-10.0) 11/22/16 03:20 RBC 4.24 X10^6/uL (3.5-5.4) 11/22/16 03:20 Hgb 11.8 g/dL (12.0-16.0) L 11/22/16 03:20 Hct 35.6 % (36.0-47.0) L 11/22/16 03:20 MCV 84.0 fL (80.0-100.0) 11/22/16 03:20 MCH 27.7 pg (27.0-34.0) 11/22/16 03:20 MCHC 33.0 g/dL (33.0-35.0) 11/22/16 03:20 RDW 14.8 % (11.6-16.5) 11/22/16 03:20 Plt Count 207 X10^3/uL (150.0-450.0) 11/22/16 03:20 MPV 8.3 fL (7.4-11.0) 11/22/16 03:20 Neut % 70.5 % (42.0-75.0) 11/22/16 03:20 Lymph % 16.1 % (21.0-51.0) L 11/22/16 03:20 [place] % 11.1 % (0.0-13.0) 11/22/16 03:20 Eos % 1.6 % (0.9-2.9) 11/22/16 03:20 Baso % 0.7 % (0.2-1.0) 11/22/16 03:20 Neut # 4.4 x10^3/uL (2.2-4.8) 11/22/16 03:20 Lymph # 1.0 X10^3/uL (1.3-2.9) L 11/22/16 03:20 [place] # 0.7 x10^3/uL (0.3-0.8) 11/22/16 03:20 Eos # 0.1 x10^3/uL (0.0-0.2) 11/22/16 03:20 Baso # 0.0 X10^3/uL (0.0-0.1) 11/22/16 03:20 Absolute Nucleated RBC 0.1 /100WBC 11/22/16 03:20 INR Target Range - 11/21/16 04:50 INR 1.13 (0.8-1.3) 11/21/16 04:50 PTT 33.6 SECONDS (22.9-36.5) 11/21/16 04:50 PTT Comment - 11/21/16 04:50 Sodium 143 mmol/L (136-145) 11/22/16 03:20 Corrected Sodium TNP 11/22/16 03:20 Potassium 4.1 mmol/L (3.5-5.1) 11/22/16 12:26 Chloride 103 mmol/L (98-107) 11/22/16 03:20 Carbon Dioxide 32.2 mmol/L (21-32) H 11/22/16 03:20 BUN 15 mg/dL (7-18) 11/22/16 03:20 Creatinine 1.05 mg/dL (0.55-1.02) H 11/22/16 03:20 Est GFR (MDRD) Af Amer > 60 (>60) 11/22/16 03:20 Est GFR (MDRD) Non-Af 55 (>60) L 11/22/16 03:20 Glucose 103 mg/dL (65-99) H 11/22/16 03:20 Calcium 8.8 mg/dL (8.5-10.1) 11/22/16 03:20 Corrected Calcium TNP 11/22/16 03:20 Magnesium 1.8 mg/dL (1.7-2.9) 11/21/16 04:50 Total Bilirubin 0.60 mg/dL (0.2-1.0) 11/22/16 03:20 AST 12 Units/L (15-37) L 11/22/16 03:20 ALT 14 Units/L (12-78) 11/22/16 03:20 Alkaline Phosphatase 60 Units/L (46-116) 11/22/16 03:20 Creatine Kinase 32 Units/L (26-192) 11/22/16 15:49 CK-MB (CK-2) < 1.0 ng/mL (0-4.0) 11/22/16 15:49 CK/CKMB % Calc 3.1 % (<4) 11/22/16 15:49 Troponin I 0.02 ng/mL (0-1.5) 11/22/16 15:49 B-Natriuretic Peptide 194 pg/mL (0-79) H 11/20/16 19:08 Total Protein 7.0 g/dL (6.4-8.2) 11/22/16 03:20 Albumin 3.6 g/dL (3.4-5.0) 11/22/16 03:20 Globulin 3.4 g/dL (2.5-4.5) 11/22/16 03:20 Albumin/Globulin Ratio 1.1 Ratio (1.1-2.1) 11/22/16 03:20 Triglycerides 78 mg/dL (0-150) 11/21/16 04:50 Cholesterol 114 mg/dL (0-200) 11/21/16 04:50 LDL Cholesterol, Calc 46 mg/dL (0-100) 11/21/16 04:50 HDL Cholesterol 52 mg/dL (40-60) 11/21/16 04:50 Cholesterol/HDL Ratio 2.2 (0.0-5.0) 11/21/16 04:50 Specimen Type Clean catch urine 11/20/16 19:25 Urine Color Pale yellow (YELLOW) 11/20/16 19:25 Urine Appearance Clear (CLEAR) 11/20/16 19:25 Urine pH 7.0 (5.0 - 8.0) 11/20/16 19:25 Ur Specific [place] 1.010 (1.000-1.030) 11/20/16 19:25 Urine Protein 1+ (NEGATIVE) 11/20/16 19:25 Urine Glucose (UA) Negative (NEGATIVE) 11/20/16 19:25 Urine Ketones Negative (NEGATIVE) 11/20/16 19:25 Urine Occult Blood Negative (NEGATIVE) 11/20/16 19:25 Urine Nitrite Negative (NEGATIVE) 11/20/16 19:25 Urine Bilirubin Negative (NEGATIVE) 11/20/16 19:25 Urine Urobilinogen Normal (NORMAL) 11/20/16 19:25 Ur Leukocyte Esterase Negative (NEGATIVE) 11/20/16 19:25 Urine RBC 0-1 /HPF (NEGATIVE) 11/20/16 19:25 Urine WBC 0-2 /HPF (NEGATIVE) 11/20/16 19:25 Ur Squamous Epith Cells Many /HPF (NEGATIVE) 11/20/16 19:25 Amorphous Sediment Trace /HPF (NEGATIVE) 11/20/16 19:25 Urine Bacteria 1+ /HPF (NEGATIVE) 11/20/16 19:25 Ur Culture Indicated? No/not indicated 11/20/16 19:25 - Plan (1) CHF (congestive heart failure) Status: Acute Qualifiers: Congestive heart failure type: combined Congestive heart failure chronicity : acute on chronic Qualified Code(s): I50.43 - Acute on chronic combined systolic (congestive) and diastolic (congestive) heart failure Plan: lasix 40mg iv bid, duonebs, supplemental oxygen, continue to monitor (2) Atrial fibrillation Status: Acute Qualifiers: Atrial fibrillation type: unspecified Qualified Code(s): I48.91 - Unspecified atrial fibrillation Plan: eliquis 5mg po bid, telemetry, continue to monitor
[2016-11-22] MEDS ORDERED: NS 500 ML IV 500 ML IV ONE (20:33)
[2016-11-23] MEDS: APRESOLINE TAB 25 MG PO SCH ×3 (05:30→22:00)
[2016-11-23] MEDS: NORCO 10/325 TAB PO PRN ×2 (05:39→14:11)
[2016-11-23 06:07] LABS: BASOPHILS % (AUTO) 0.4 % (0.2-1.0); EOSINOPHILS # (AUTO) 0.2 x10^3/uL (0.0-0.2); EOSINOPHILS % (AUTO) 2.5 % (0.9-2.9); HEMATOCRIT 34.9 % (36.0-47.0); HEMOGLOBIN 11.6 g/dL (12.0-16.0); LYMPHOCYTES # (AUTO) 1.2 X10^3/uL (1.3-2.9); LYMPHOCYTES % (AUTO) 15.9 % (21.0-51.0); MEAN CORPUSCULAR HEMOGLOBIN 27.6 pg (27.0-34.0); MEAN CORPUSCULAR HGB CONC 33.1 g/dL (33.0-35.0); MEAN CORPUSCULAR VOLUME 83.3 fL (80.0-100.0); MEAN PLATELET VOLUME 8.4 fL (7.4-11.0); MONOCYTES # (AUTO) 0.8 x10^3/uL (0.3-0.8); MONOCYTES % (AUTO) 10.9 % (0.0-13.0); NEUTROPHILS # (AUTO) 5.4 x10^3/uL (2.2-4.8); NEUTROPHILS % (AUTO) 70.3 % (42.0-75.0); PLATELET COUNT 215 X10^3/uL (150.0-450.0); RED BLOOD COUNT 4.19 X10^6/uL (3.5-5.4); RED CELL DISTRIBUTION WIDTH 14.9 % (11.6-16.5); WHITE BLOOD COUNT 7.6 X10^3/uL (3.6-10.0)
[2016-11-23 06:36] LABS: ALANINE AMINOTRANSFERASE 11 Units/L (12-78); ALBUMIN 3.6 g/dL (3.4-5.0); ALKALINE PHOSPHATASE 57 Units/L (46-116); ASPARTATE AMINO TRANSFERASE 12 Units/L (15-37); BLOOD UREA NITROGEN 18 mg/dL (7-18); CALCIUM 8.8 mg/dL (8.5-10.1); CARBON DIOXIDE 28.5 mmol/L (21-32); CHLORIDE 104 mmol/L (98-107); CREATININE 1.01 mg/dL (0.55-1.02); SODIUM 142 mmol/L (136-145); eGFR BLACK RACES > 60 (>60); eGFR NON BLACK RACES 57 (>60)
[2016-11-23] MEDS: PROTONIX TAB 40 MG PO SCH ×2 (08:12→21:30)
[2016-11-23] MEDS: PEPCID 20 MG IV PREMIX* 20 MG/50 ML BAG IV SCH ×2 (08:12→21:28)
[2016-11-23] MEDS: ROCEPHIN VIAL 1 GM 1 GM in NS 50 ML IV 50 ML IV SCH (08:12)
[2016-11-23] MEDS: IMDUR PO SCH (08:13)
[2016-11-23] MEDS: ASPIRIN EC 81 MG PO SCH (08:13)
[2016-11-23] MEDS: COREG TAB 12.5 MG PO SCH ×2 (08:13→21:30)
[2016-11-23] MEDS: SYNTHROID 112 mcg TAB PO SCH (08:13)
[2016-11-23] MEDS: ELIQUIS PO SCH ×2 (08:13→21:30)
[2016-11-23] MEDS: LASIX IVP SCH ×2 (08:14→21:29)
[2016-11-23] MEDS: K-DUR TAB 20 MEQ PO PRN (08:16)
--- NOTE | 2016-11-23 08:49 | RAD ---
Chest AP portable Indication: Dyspnea. Comparison: November 22, 2016. Findings: Cardiomegaly hand COPD again noted. No pneumothorax or effusion seen. No consolidation. Impression: No acute chest process or change from the prior. Reported By:
[2016-11-23] MEDS: CARDIZEM SR 120 MG PO SCH ×2 (09:36→21:29)
[2016-11-23] MEDS: CORDARONE TAB 200 MG PO SCH ×2 (09:39→17:10)
[2016-11-23] MEDS: MORPHINE SULFATE INJ 4 MG IVP PRN (09:39)
--- NOTE | 2016-11-23 10:54 | PCM.PROG ---
Progress Note - Progress Note for Day of Date: 11/23/16 - Subjective Subjective: WAS ADMITTED FOR PULMONARY EDEMA, CHF, CHEST PAIN, AND ATRIAL FIBRILLATION. TODAY, SHE IS ALERT AND ORIENTED, LYING IN BED ON MORNING ROUNDS. TODAY, PATIENT REPORTS FEELING MUCH BETTER. SHE DENIES SHORTNESS OF BREATH OR CHEST PAIN. PATIENT IS NOTED ON TELEMETRY. ATRIAL FIBRILLATION IS NOTED WITH HR 67 BPM. ON EXAMINATION, BILATERAL LUNGS ARE NOTED CLEAR TO AUSCULTATION. ABDOMEN IS ROUND, SOFT, AND NON-TENDER. SHE IS NOTED ON NASAL CANNULA WITH OXYGEN AT 2LPM. HER VITAL SIGNS THIS MORNING ARE97.4-67-15-96%-114/ 55. CBC, CMP, CARDIAC PROFILE, AND EKG WERE OBTAINED. ABNORMAL LABS INCLUDE THE FOLLOWING: HGB 11.6, HCT 34.9, POTASSIUM 3.4, GLUCOSE 110, AST 12, ALT 11. CARDIAC ENZYMES WERE NEGATIVE. LATEST EKG REPORTED ATRIAL FIBRILLATION. PATIENT WAS STARTED ON A CARDIZEM DRIP PER PROTOCOL YESTERDAY. DURING THE NIGHT, DRIP WAS TURNED OFF. SHE REMAINS OFF OF DRIP THIS MORNING. WE WILL DISCONTINUE THE CARDIZEM DRIP FROM ORDERS. WE PLAN TO START CARDIZEM CD 120MG BID AND AMIODERONE 10MG PO DAILY. WE WILL OBTAIN A CBC, CMP, DIGOXIN LEVEL, EKG, AND CHEST XRAY IN THE MORNING AND CONTINUE TO MONITOR PATIENT. - Past Medical Family Social History Past Med/Fam/Surg Hx: No changes since H&P Allergies: Allergies No Known Drug Allergies Allergy (Verified 11/20/16 18:44) - Review of Systems ROS: No change since H&P - Vital Signs and I&O's Vital Signs: Temperature 97.7 F Pulse Rate [Apical] 77 Pulse Rate 141 Respiratory Rate 12 Blood Pressure [Right Arm] 103/56 Blood Pressure [Left Arm] 112/61 Blood Pressure 116/78 O2 Sat by Pulse Oximetry 100 Intake and Output: Intake & Output 11/20/16 11/21/16 11/22/16 11/23/16 11:59 11:59 11:59 11:59 Intake Total 120 1098 1480 Output Total 5150 1700 800 Balance -5030 -602 680 - Physical Exam Oriented: Normal Eyes: Blurred Vision Ear: Normal Nose: Normal Throat: Normal Respiratory: Generalized, Wheezes Cardiovascular: Tachycardia : Normal Auscultation: Bowel Sounds: Normal Palpation: Normal Tenderness: Normal Skin: Red Musculoskeletal: Normal Psychiatric: Normal Mood Description: Calm Affect: Normal Speech Pattern: Clear, Appropriate - Laboratory and Diagnostics Result Diagrams: 11/23/16 05:08 11/23/16 05:08 Labs: 11/20/16 20:18 Urine,[place] Urine Culture - Final Laboratory WBC 7.6 X10^3/uL (3.6-10.0) 11/23/16 05:08 RBC 4.19 X10^6/uL (3.5-5.4) 11/23/16 05:08 Hgb 11.6 g/dL (12.0-16.0) L 11/23/16 05:08 Hct 34.9 % (36.0-47.0) L 11/23/16 05:08 MCV 83.3 fL (80.0-100.0) 11/23/16 05:08 MCH 27.6 pg (27.0-34.0) 11/23/16 05:08 MCHC 33.1 g/dL (33.0-35.0) 11/23/16 05:08 RDW 14.9 % (11.6-16.5) 11/23/16 05:08 Plt Count 215 X10^3/uL (150.0-450.0) 11/23/16 05:08 MPV 8.4 fL (7.4-11.0) 11/23/16 05:08 Neut % 70.3 % (42.0-75.0) 11/23/16 05:08 Lymph % 15.9 % (21.0-51.0) L 11/23/16 05:08 [place] % 10.9 % (0.0-13.0) 11/23/16 05:08 Eos % 2.5 % (0.9-2.9) 11/23/16 05:08 Baso % 0.4 % (0.2-1.0) 11/23/16 05:08 Neut # 5.4 x10^3/uL (2.2-4.8) H 11/23/16 05:08 Lymph # 1.2 X10^3/uL (1.3-2.9) L 11/23/16 05:08 [place] # 0.8 x10^3/uL (0.3-0.8) 11/23/16 05:08 Eos # 0.2 x10^3/uL (0.0-0.2) 11/23/16 05:08 Baso # 0.0 X10^3/uL (0.0-0.1) 11/23/16 05:08 Absolute Nucleated RBC 0.0 /100WBC 11/23/16 05:08 INR Target Range - 11/21/16 04:50 INR 1.13 (0.8-1.3) 11/21/16 04:50 PTT 33.6 SECONDS (22.9-36.5) 11/21/16 04:50 PTT Comment - 11/21/16 04:50 Sodium 142 mmol/L (136-145) 11/23/16 05:08 Corrected Sodium TNP 11/23/16 05:08 Potassium 3.4 mmol/L (3.5-5.1) L 11/23/16 05:08 Chloride 104 mmol/L (98-107) 11/23/16 05:08 Carbon Dioxide 28.5 mmol/L (21-32) 11/23/16 05:08 BUN 18 mg/dL (7-18) 11/23/16 05:08 Creatinine 1.01 mg/dL (0.55-1.02) 11/23/16 05:08 Est GFR (MDRD) Af Amer > 60 (>60) 11/23/16 05:08 Est GFR (MDRD) Non-Af 57 (>60) L 11/23/16 05:08 Glucose 110 mg/dL (65-99) H 11/23/16 05:08 Calcium 8.8 mg/dL (8.5-10.1) 11/23/16 05:08 Corrected Calcium TNP 11/23/16 05:08 Magnesium 1.8 mg/dL (1.7-2.9) 11/21/16 04:50 Total Bilirubin 0.70 mg/dL (0.2-1.0) 11/23/16 05:08 AST 12 Units/L (15-37) L 11/23/16 05:08 ALT 11 Units/L (12-78) L 11/23/16 05:08 Alkaline Phosphatase 57 Units/L (46-116) 11/23/16 05:08 Creatine Kinase 32 Units/L (26-192) 11/22/16 15:49 CK-MB (CK-2) < 1.0 ng/mL (0-4.0) 11/22/16 15:49 CK/CKMB % Calc 3.1 % (<4) 11/22/16 15:49 Troponin I 0.02 ng/mL (0-1.5) 11/22/16 15:49 B-Natriuretic Peptide 194 pg/mL (0-79) H 11/20/16 19:08 Total Protein 7.0 g/dL (6.4-8.2) 11/23/16 05:08 Albumin 3.6 g/dL (3.4-5.0) 11/23/16 05:08 Globulin 3.4 g/dL (2.5-4.5) 11/23/16 05:08 Albumin/Globulin Ratio 1.1 Ratio (1.1-2.1) 11/23/16 05:08 Triglycerides 78 mg/dL (0-150) 11/21/16 04:50 Cholesterol 114 mg/dL (0-200) 11/21/16 04:50 LDL Cholesterol, Calc 46 mg/dL (0-100) 11/21/16 04:50 HDL Cholesterol 52 mg/dL (40-60) 11/21/16 04:50 Cholesterol/HDL Ratio 2.2 (0.0-5.0) 11/21/16 04:50 Specimen Type Clean catch urine 11/20/16 19:25 Urine Color Pale yellow (YELLOW) 11/20/16 19:25 Urine Appearance Clear (CLEAR) 11/20/16 19:25 Urine pH 7.0 (5.0 - 8.0) 11/20/16 19:25 Ur Specific [place] 1.010 (1.000-1.030) 11/20/16 19:25 Urine Protein 1+ (NEGATIVE) 11/20/16 19:25 Urine Glucose (UA) Negative (NEGATIVE) 11/20/16 19:25 Urine Ketones Negative (NEGATIVE) 11/20/16 19:25 Urine Occult Blood Negative (NEGATIVE) 11/20/16 19:25 Urine Nitrite Negative (NEGATIVE) 11/20/16 19:25 Urine Bilirubin Negative (NEGATIVE) 11/20/16 19:25 Urine Urobilinogen Normal (NORMAL) 11/20/16 19:25 Ur Leukocyte Esterase Negative (NEGATIVE) 11/20/16 19:25 Urine RBC 0-1 /HPF (NEGATIVE) 11/20/16 19:25 Urine WBC 0-2 /HPF (NEGATIVE) 11/20/16 19:25 Ur Squamous Epith Cells Many /HPF (NEGATIVE) 11/20/16 19:25 Amorphous Sediment Trace /HPF (NEGATIVE) 11/20/16 19:25 Urine Bacteria 1+ /HPF (NEGATIVE) 11/20/16 19:25 Ur Culture Indicated? No/not indicated 11/20/16 19:25 Digoxin 1.00 ng/mL (0.9-2) 11/23/16 05:08 - Plan (1) Atrial fibrillation Status: Acute Qualifiers: Atrial fibrillation type: unspecified Qualified Code(s): I48.91 - Unspecified atrial fibrillation Plan: eliquis 5mg po bid, cardizem cd 120mg bid, amioderone 200mg po bid, telemetry, continue to monitor (2) CHF (congestive heart failure) Status: Acute Qualifiers: Congestive heart failure type: combined Congestive heart failure chronicity : acute on chronic Qualified Code(s): I50.43 - Acute on chronic combined systolic (congestive) and diastolic (congestive) heart failure Plan: lasix 40mg iv bid, duonebs, supplemental oxygen, continue to monitor (3) Chest pain Status: Acute Qualifiers: Chest pain type: precordial pain Qualified Code(s): R07.2 - Precordial pain
[2016-11-23] MEDS: KLONOPIN TAB 0.5 MG PO PRN (21:34)
[2016-11-24] MEDS: NORCO 10/325 TAB PO PRN (05:25)
[2016-11-24 06:13] LABS: BASOPHILS # (AUTO) 0.1 X10^3/uL (0.0-0.1); BASOPHILS % (AUTO) 0.7 % (0.2-1.0); EOSINOPHILS # (AUTO) 0.2 x10^3/uL (0.0-0.2); EOSINOPHILS % (AUTO) 2.1 % (0.9-2.9); HEMATOCRIT 35.7 % (36.0-47.0); HEMOGLOBIN 11.9 g/dL (12.0-16.0); LYMPHOCYTES # (AUTO) 1.3 X10^3/uL (1.3-2.9); LYMPHOCYTES % (AUTO) 18.1 % (21.0-51.0); MEAN CORPUSCULAR HEMOGLOBIN 27.7 pg (27.0-34.0); MEAN CORPUSCULAR HGB CONC 33.3 g/dL (33.0-35.0); MEAN CORPUSCULAR VOLUME 83.4 fL (80.0-100.0); MEAN PLATELET VOLUME 8.7 fL (7.4-11.0); MONOCYTES # (AUTO) 0.7 x10^3/uL (0.3-0.8); MONOCYTES % (AUTO) 9.7 % (0.0-13.0); NEUTROPHILS # (AUTO) 5.1 x10^3/uL (2.2-4.8); NEUTROPHILS % (AUTO) 69.4 % (42.0-75.0); PLATELET COUNT 223 X10^3/uL (150.0-450.0); RED BLOOD COUNT 4.28 X10^6/uL (3.5-5.4); RED CELL DISTRIBUTION WIDTH 15.1 % (11.6-16.5); WHITE BLOOD COUNT 7.4 X10^3/uL (3.6-10.0)
[2016-11-24] MEDS: APRESOLINE TAB 25 MG PO SCH (06:18)
[2016-11-24] MEDS: CORDARONE TAB 200 MG PO SCH (06:50)
[2016-11-24 06:53] LABS: ALANINE AMINOTRANSFERASE 13 Units/L (12-78); ALBUMIN 3.7 g/dL (3.4-5.0); ALKALINE PHOSPHATASE 63 Units/L (46-116); ASPARTATE AMINO TRANSFERASE 10 Units/L (15-37); BLOOD UREA NITROGEN 20 mg/dL (7-18); CALCIUM 9.2 mg/dL (8.5-10.1); CHLORIDE 103 mmol/L (98-107); COR NA(FOR HYPERGLY) 142 mmol/L (136-145); CREATININE 1.03 mg/dL (0.55-1.02); SODIUM 141 mmol/L (136-145); TOTAL PROTEIN 7.3 g/dL (6.4-8.2); eGFR BLACK RACES > 60 (>60); eGFR NON BLACK RACES 56 (>60)
--- NOTE | 2016-11-24 07:03 | RAD ---
Chest AP portable Indication: Dyspnea. Comparison: November 23, 2016. Findings: There is no pneumothorax, effusion or consolidation. Cardiomegaly and COPD again noted. Impression: Cardiomegaly and COPD, unchanged from the prior without new acute abnormality. TEST Reported By:
[2016-11-24] MEDS: PEPCID 20 MG IV PREMIX* 20 MG/50 ML BAG IV SCH (08:23)
[2016-11-24] MEDS: LASIX IVP SCH (08:23)
[2016-11-24] MEDS: K-DUR TAB 20 MEQ PO PRN (08:23)
[2016-11-24] MEDS: ROCEPHIN VIAL 1 GM 1 GM in NS 50 ML IV 50 ML IV SCH (08:23)
[2016-11-24] MEDS: ELIQUIS PO SCH (08:25)
[2016-11-24] MEDS: SYNTHROID 112 mcg TAB PO SCH (08:25)
[2016-11-24] MEDS: IMDUR PO SCH (08:25)
[2016-11-24] MEDS: ASPIRIN EC 81 MG PO SCH (08:25)
[2016-11-24] MEDS: PROTONIX TAB 40 MG PO SCH (08:25)
[2016-11-24] MEDS: CARDIZEM SR 120 MG PO SCH (08:25)
[2016-11-24] MEDS: COREG TAB 12.5 MG PO SCH (08:27)
[2016-11-24 10:55] VITALS: BP 137/63
== END 2016-11-24 10:50 | disposition home or self-care (01) | DRG 189 ==
LOC: ER 18:51 → MED/SURG 21:20 → ICU 11-22 10:10
PROVIDERS: ADMIT Internal Medicine; ATTEND Internal Medicine
DX: J81.0 Acute pulmonary edema (principal); I50.43 Acute on chronic combined systolic (congestive) and diastolic (congestive) heart failure; I48.91 Unspecified atrial fibrillation; R06.02 Shortness of breath; R60.0 Localized edema; R07.2 Precordial pain; J20.8 Acute bronchitis due to other specified organisms; R94.31 Abnormal electrocardiogram [ECG] [EKG]; Z12.31 Encounter for screening mammogram for malignant neoplasm of breast
CPT/HCPCS: 36415; 51702; 70450; 71010; 77067; 80053; 80061; 80162; 81001; 82550; 82553; 83735; 83880; 84132; 84484; 85025; 85610; 85730; 87086; 93005; 93306; 94760; 96365; 96374; 96375; 99284; A4216; A4222; S0028; J0696; J1160; J1940; J2270; J2405

== ENCOUNTER → 2016-11-20 | Outpatient (CLI) | payer OTHER ==
[2015-11-23 13:09] VITALS: BP 112/61
--- NOTE | 2016-11-24 09:06 | MG ---
HISTORY: SCREENING Comparison: None FINDINGS: Bilateral CC and MLO projections of the right and left breast were obtained. Scattered fibroglandula r tissue is seen to be present. No suspicious architectural distortion, mass or clustered microcalci fications can be observed to suggest malignancy. No skin thickening or nipple retraction is apprecia liza. No pathological lymphadenopathy can be identified. Benign-appearing calcifications are noted w ithin the right and left breast. IMPRESSION: NO RADIOGRAPHIC EVIDENCE OF MALIGNANCY. ACR CATEGORY 2 - benign findings. FOLLOW-UP EXAM 1 YEAR. Diagnostic CAD was utilized and reviewed. * 0 (ZERO) - ASSESSMENT INCOMPLETE; ADDITIONAL IMAGING IS NEEDED. * 1/ (ONE) - NEGATIVE. * 2/II (TWO) - BENIGN FINDINGS. * 3/III (THREE) - PROBABLY BENIGN FINDING; SHORT INTERVAL FOLLOW-UP SUGGESTED. * 4/IV (FOUR) - SUSPICIOUS ABNORMALITY; BIOPSY SHOULD BE CONSIDERED. * 5/V (FIVE) - HIGHLY SUSPICIOUS OF MALIGNANCY; BIOPSY SHOULD BE PERFORMED. A NEGATIVE X-RAY REPORT SHOULD NOT DELAY BIOPSY IF A DOMINANT OR CLINICALLY SUSPICIOUS MASS IS PRESENT; 4 TO 8 PERCENT OF CANCERS ARE NOT IDENTIFIED BY X-RAY. A NEGA TIVE REPORT MAY REINFORCE THE CLINICAL IMPRESSION. ADENOSIS AND DENSE BREASTS MAY OBSCURE AN UNDERLY ING NEOPLASM. Reported By:
== END ==
LOC: RAD 15:07
PROVIDERS: ATTEND Internal Medicine
DX: Z12.31 Encounter for screening mammogram for malignant neoplasm of breast (principal)
CPT/HCPCS: 77067

== ENCOUNTER 2018-05-12 16:50 | Observation (INO) ==
[2018-05-12] MEDS ORDERED: ASPIRIN PO ONE (16:54)
[2018-05-12] MEDS ORDERED: ASPIRIN ONE (16:56)
[2018-05-12] MEDS: NITROSTAT SL PRN ×2 (17:00→18:12)
[2018-05-12 17:06] VITALS: BMI 32.2
[2018-05-12 17:06] LABS: BASOPHILS % (AUTO) 0.4 % (0.2-1.0); EOSINOPHILS # (AUTO) 0.1 x10^3/uL (0.0-0.2); EOSINOPHILS % (AUTO) 1.2 % (0.9-2.9); HEMOGLOBIN 10.3 g/dL (12.0-16.0); LYMPHOCYTES % (AUTO) 14.5 % (21.0-51.0); MEAN CORPUSCULAR HEMOGLOBIN 25.1 pg (27.0-34.0); MEAN CORPUSCULAR HGB CONC 32.3 g/dL (33.0-35.0); MEAN CORPUSCULAR VOLUME 77.9 fL (80.0-100.0); MONOCYTES # (AUTO) 0.8 x10^3/uL (0.3-0.8); NEUTROPHILS # (AUTO) 5.2 x10^3/uL (2.2-4.8); NEUTROPHILS % (AUTO) 72.9 % (42.0-75.0); PLATELET COUNT 261 X10^3/uL (150.0-450.0); RED BLOOD COUNT 4.11 X10^6/uL (3.5-5.4); WHITE BLOOD COUNT 7.1 X10^3/uL (3.6-10.0)
--- NOTE | 2018-05-12 17:20 | RAD ---
HISTORY: Chest pain Study: Single-view chest Comparison: 11/24/2016 Findings: The trachea is midline. The cardiac silhouette is enlarged but stable. The lungs are clear without focal infiltrate or effusion. The bony thorax is unremarkable. IMPRESSION: 1. No acute cardiopulmonary disease. Reported By:
[2018-05-12 17:23] LABS: PLATELET MORPHOLOGY COMMENT NORMAL (NORMAL)
[2018-05-12 17:25] LABS: BLOOD UREA NITROGEN 14 mg/dL (7-18); CALCIUM 9.1 mg/dL (8.5-10.1); CARBON DIOXIDE 30.6 mmol/L (21-32); CHLORIDE 101 mmol/L (98-107); COR NA(FOR HYPERGLY) 139 mmol/L (136-145); CREATININE 0.94 mg/dL (0.55-1.02); SODIUM 138 mmol/L (136-145); TROPONIN I < 0.02 ng/mL (0-1.5); eGFR NON BLACK RACES > 60 (>60)
[2018-05-12 17:26] LABS: ALANINE AMINOTRANSFERASE 15 Units/L (12-78); ALBUMIN 3.7 g/dL (3.4-5.0); ALKALINE PHOSPHATASE 81 Units/L (46-116); ASPARTATE AMINO TRANSFERASE 14 Units/L (15-37); CKMB % 2.9 % (<4); CREATINE KINASE 42 Units/L (26-192); CREATINE KINASE MB 1.2 ng/mL (0-4.0); TOTAL PROTEIN 7.5 g/dL (6.4-8.2)
--- NOTE | 2018-05-12 20:22 | DR.CP ---
HPI Time Seen Time Seen by Provider: 05/12/18 19:30 PCP Primary Care Physician: DR LEON Complaint Chief Complaint:: PT C/O SUDDEN ONSET OF PAIN UNDER LEFT BREAST AND INTO LEFT CHEST WALL THAT STARTED YESTERDAY AFTERNOON. PT TOOK NITRO X 1, NORCO AND XANAX AND WENT TO BED. SINCE SHE WOKE UP THIS MORNING PAIN HAS BEEN CONSTANT AND FLUCUATING IN INTENSITY. CURRENTLY DESCRIBES PAIN PRESSURE RATED 5/10 Source History Provided: Patient Mode of Arrival Mode of Arrival: Ambulatory Timing Onset of Chief Complaint: 05/12/18 PMH PMH Past Medical History: Yes Past Medical History: Anxiety, CHF, Coronary Artery Disease and Dyslipidemia Past Medical History Comment: AFIB Past Surgical History: Yes Surgical History: Angioplasty/Stents and Hysterectomy Past Surgical History Comment: CYST REMOVED FROM LEG Family History History of Family Medical Conditions: No (UNKNOWN) Family Medical History: Diabetes Mellitus, Cancer and Hypertension Social History Does patient currently use any type of tobacco product: No Have you used tobacco products in the last 12 months: No Type of Tobacco Use: None Does any household member use tobacco: No Alcohol Use: None Do you use any recreational Drugs:: No Lives With: Family Lives Where: Home infectious screening In the last 2 months have you had wt loss of >10#?: NO Have you had fever, night sweats or hemotysis?: No Have you traveled outside the country in the last 6 months?: No Isolation: Standard PE Vitals Vitals: Temperature 98.0 F Pulse Rate [Brachial] 66 Pulse Rate 66 Respiratory Rate 20 Blood Pressure [Right Arm] 150/80 Blood Pressure [Left Arm] 133/63 Blood Pressure 145/66 O2 Sat by Pulse Oximetry 99 General Limitations: No Limitations General Appearance: Alert and In No Apparent Distress Head Head Exam: Normal Inspection, Atraumatic and Normocephalic Eyes Eye exam: Normal Appearance and PERRL ENT ENT Exam: Normal Exam, Normal Oropharynx and Normal External Ear Exam Chest Chest Inspection: Normal Inspection and Symmetric Chest Wall Rise Respiratory Respiratory Exam: Normal Lung Sounds Bilat Respiratory Exam: Bilateral: Clear to Auscultation Cardiovascular Cardiovascular Exam: Regular Rate and Normal Rhythm Pulse: Normal and Radial Edema: Normal Abdominal Exam Abdominal Exam: Normal Inspection, Normal Bowel Sounds and Soft Extremities Extremities Exam: Normal Inspection and Full ROM Back Back Exam: Normal Inspection and Full ROM Neurologic Neurological Exam: Alert, Oriented X3 and CN II-XII Intact Psychiatric Psychiatric Exam: Normal Affect and Normal Mood Skin Skin Exam: Warm, Dry, Intact and Normal Color ROR Labs Reviewed Result Diagrams: 05/13/18 04:25 05/13/18 04:25 Laboratory: WBC 5.3 X10^3/uL (3.6-10.0) 05/13/18 04:25 RBC 3.94 X10^6/uL (3.5-5.4) 05/13/18 04:25 Hgb 10.0 g/dL (12.0-16.0) L 05/13/18 04:25 Hct 31.1 % (36.0-47.0) L 05/13/18 04:25 MCV 79.0 fL (80.0-100.0) L 05/13/18 04:25 MCH 25.4 pg (27.0-34.0) L 05/13/18 04:25 MCHC 32.2 g/dL (33.0-35.0) L 05/13/18 04:25 RDW 16.5 % (11.6-16.5) 05/13/18 04:25 Plt Count 218 X10^3/uL (150.0-450.0) 05/13/18 04:25 Plt Count Comment Adequate (ADEQUATE) 05/13/18 04:25 MPV 8.2 fL (7.4-11.0) 05/13/18 04:25 Neut % (Auto) 71.8 % (42.0-75.0) 05/13/18 04:25 Lymph % (Auto) 17.0 % (21.0-51.0) L 05/13/18 04:25 [place] % (Auto) 9.5 % (0.0-13.0) 05/13/18 04:25 Eos % (Auto) 1.1 % (0.9-2.9) 05/13/18 04:25 Baso % (Auto) 0.6 % (0.2-1.0) 05/13/18 04:25 Neut # (Auto) 3.8 x10^3/uL (2.2-4.8) 05/13/18 04:25 Lymph # (Auto) 0.9 X10^3/uL (1.3-2.9) L 05/13/18 04:25 [place] # (Auto) 0.5 x10^3/uL (0.3-0.8) 05/13/18 04:25 Eos # (Auto) 0.1 x10^3/uL (0.0-0.2) 05/13/18 04:25 Baso # (Auto) 0.0 X10^3/uL (0.0-0.1) 05/13/18 04:25 Absolute Nucleated RBC 0.0 /100WBC 05/13/18 04:25 Plt Morphology Comment Normal (NORMAL) 05/13/18 04:25 RBC Morphology Abnormal (NORMAL) A 05/13/18 04:25 Hypochromasia Slight A 05/13/18 04:25 Anisocytosis Slight A 05/13/18 04:25 Microcytosis Slight A 05/13/18 04:25 Sodium 141 mmol/L (136-145) 05/13/18 04:25 Corrected Sodium TNP 05/13/18 04:25 Potassium 3.3 mmol/L (3.5-5.1) L 05/13/18 04:25 Chloride 104 mmol/L (98-107) 05/13/18 04:25 Carbon Dioxide 30.7 mmol/L (21-32) 05/13/18 04:25 BUN 13 mg/dL (7-18) 05/13/18 04:25 Creatinine 0.90 mg/dL (0.55-1.02) 05/13/18 04:25 Est GFR (MDRD) Af Amer > 60 (>60) 05/13/18 04:25 Est GFR (MDRD) Non-Af > 60 (>60) 05/13/18 04:25 Glucose 98 mg/dL (65-99) 05/13/18 04:25 Calcium 9.1 mg/dL (8.5-10.1) 05/13/18 04:25 Corrected Calcium 9.7 mg/dL (8.5-10.1) 05/13/18 04:25 Magnesium 2.0 mg/dL (1.7-2.9) 05/13/18 04:25 Total Bilirubin 0.30 mg/dL (0.2-1.0) 05/13/18 04:25 AST 13 Units/L (15-37) L 05/13/18 04:25 ALT 12 Units/L (12-78) 05/13/18 04:25 Alkaline Phosphatase 72 Units/L (46-116) 05/13/18 04:25 Creatine Kinase 33 Units/L (26-192) 05/13/18 04:25 CK-MB (CK-2) < 1.0 ng/mL (0-4.0) 05/13/18 04:25 CK/CKMB % Calc 3.0 % (<4) 05/13/18 04:25 Troponin I 0.02 ng/mL (0-1.5) 05/13/18 04:25 Total Protein 6.9 g/dL (6.4-8.2) 05/13/18 04:25 Albumin 3.3 g/dL (3.4-5.0) L 05/13/18 04:25 Globulin 3.6 g/dL (2.5-4.5) 05/13/18 04:25 Albumin/Globulin Ratio 0.9 Ratio (1.1-2.1) L 05/13/18 04:25 Triglycerides 94 mg/dL (0-150) 05/13/18 04:25 Cholesterol 197 mg/dL (0-200) 05/13/18 04:25 LDL Cholesterol, Calc 128 mg/dL (0-100) H 05/13/18 04:25 HDL Cholesterol 50 mg/dL (40-60) 05/13/18 04:25 Cholesterol/HDL Ratio 3.9 (0.0-5.0) 05/13/18 04:25 Diagnosis Discharge Problem: Hypokalemia
[2018-05-12] MEDS ORDERED: MORPHINE SULFATE INJ 4 MG IVP ONE (21:53)
[2018-05-12] MEDS ORDERED: MORPHINE SULFATE INJ 4 MG ONE (22:01)
[2018-05-12 23:16] LABS: CKMB % 3.1 % (<4); CREATINE KINASE 39 Units/L (26-192); CREATINE KINASE MB 1.2 ng/mL (0-4.0); TROPONIN I < 0.02 ng/mL (0-1.5)
[2018-05-13 05:18] LABS: BASOPHILS % (AUTO) 0.6 % (0.2-1.0); EOSINOPHILS # (AUTO) 0.1 x10^3/uL (0.0-0.2); EOSINOPHILS % (AUTO) 1.1 % (0.9-2.9); HEMATOCRIT 31.1 % (36.0-47.0); LYMPHOCYTES # (AUTO) 0.9 X10^3/uL (1.3-2.9); MEAN CORPUSCULAR HEMOGLOBIN 25.4 pg (27.0-34.0); MEAN CORPUSCULAR HGB CONC 32.2 g/dL (33.0-35.0); MEAN PLATELET VOLUME 8.2 fL (7.4-11.0); MONOCYTES # (AUTO) 0.5 x10^3/uL (0.3-0.8); MONOCYTES % (AUTO) 9.5 % (0.0-13.0); NEUTROPHILS # (AUTO) 3.8 x10^3/uL (2.2-4.8); NEUTROPHILS % (AUTO) 71.8 % (42.0-75.0); PLATELET COUNT 218 X10^3/uL (150.0-450.0); RED BLOOD COUNT 3.94 X10^6/uL (3.5-5.4); RED CELL DISTRIBUTION WIDTH 16.5 % (11.6-16.5); WHITE BLOOD COUNT 5.3 X10^3/uL (3.6-10.0)
[2018-05-13 05:41] LABS: ALANINE AMINOTRANSFERASE 12 Units/L (12-78); ALBUMIN 3.3 g/dL (3.4-5.0); ALKALINE PHOSPHATASE 72 Units/L (46-116); ASPARTATE AMINO TRANSFERASE 13 Units/L (15-37); BLOOD UREA NITROGEN 13 mg/dL (7-18); CALCIUM 9.1 mg/dL (8.5-10.1); CARBON DIOXIDE 30.7 mmol/L (21-32); CHLORIDE 104 mmol/L (98-107); CHOL/HDL RATIO 3.9 (0.0-5.0); CHOLESTEROL 197 mg/dL (0-200); COR CA(FOR HYPOALB) 9.7 mg/dL (8.5-10.1); CREATINE KINASE 33 Units/L (26-192); CREATINE KINASE MB < 1.0 ng/mL (0-4.0); HDL CHOLESTEROL 50 mg/dL (40-60); SODIUM 141 mmol/L (136-145); TOTAL PROTEIN 6.9 g/dL (6.4-8.2); TRIGLYCERIDES 94 mg/dL (0-150); TROPONIN I 0.02 ng/mL (0-1.5); eGFR NON BLACK RACES > 60 (>60)
[2018-05-13] MEDS ORDERED: POTASSIUM CHL 40 MEQ/NS 0.45% 500 ML IV PRN (05:47)
[2018-05-13] MEDS ORDERED: MICRO K EXTEN CAP 10 MEQ PO PRN (05:47)
[2018-05-13] MEDS ORDERED: K-RIDER 10 MEQ/NS 100 ML 10 MEQ/100 ML BAG IV PRN (05:47)
[2018-05-13] MEDS ORDERED: POTASSIUM CHLORIDE LIQ 20 MEQ UDC PO PRN (05:47)
[2018-05-13] MEDS ORDERED: K-DUR TAB 20 MEQ PO PRN (05:47)
[2018-05-13] MEDS ORDERED: KLOR-CON PO PRN (05:47)
[2018-05-13] MEDS ORDERED: POTASSIUM CHL 60 MEQ/NS 0.45% 500 ML IV PRN (05:47)
[2018-05-13 05:52] LABS: ANISOCYTOSIS SLIGHT; HYPOCHROMASIA SLIGHT; PLATELET MORPHOLOGY COMMENT NORMAL (NORMAL)
[2018-05-13 05:53] LABS: MICROCYTOSIS SLIGHT
[2018-05-13 08:59] LABS: CKMB % 3.1 % (<4); CREATINE KINASE 32 Units/L (26-192); CREATINE KINASE MB < 1.0 ng/mL (0-4.0); TROPONIN I 0.03 ng/mL (0-1.5)
[2018-05-13 11:35] VITALS: BP 137/63
--- NOTE | 2018-05-15 22:21 | DR.CARTERS ---
Short Stay Summary - Admission Date Date of Admission: 05/12/18 - Discharge Date Discharge Date: 05/13/18 - Admission Diagnoses (1) Chest pain Status: Acute - Hospital Course Hospital Course: IS A 72 YEAR OLD PATIENT OF OURS WHO PRESENTED TO THE ER WITH COMPLAINTS OF LEFT CHEST WALL AND LEFT SIDE BREAST PAIN. SHE STATED THAT PAIN STARTED ONE DAY PRIOR TO ADMISISON. SHE REPORTED TAKING NITRO X 1, NORCO, AND A XANAX AT HOME WITHOUT IMPROVEMENT IN PAIN. SHE DESCRIBED PAIN PRESSURE AND RATED IT A 5/10. ON ARRIVAL, VITALS WERE 97.8-90-18-100%-226/106. LABS WERE OBTAINED. ABNORMAL LAB VALUES INCLUDED THE FOLLOWING: HGB 10.3, HCT 32.0, GLUCOSE 123, AST 14. CARDIAC ENZYMES WITHIN NORMAL LIMITS. EKG REVEALED SINUS RHYTHM WITH HR 78. CHEST XRAY REVEALED NO ACUTE CARDIOPULMONARY DISEASE. SHE WAS GIVEN ASPIRIN 325MG PO X 1, NITRO 0.4MG SL X 2, MORPHINE 3MG IV X 1. SHE WAS ADMITTED FOR FURTHER EVALUATION AND TREATMENT OF CHEST PAIN [place] OUT ACUTE [place] AND GENERALIZED WEAKNESS. WE PLANNED TO FOLLOW UP WITH AM LABS AND SERIAL CARDIAC ENZYMES AND EKGS AND CONTINUE TO MONITOR. ON THE MORNING FOLLOWING ADMISSION, PATIENT IS ALERT AND ORIENTED, SITTING UP IN CHAIR ON MORNING ROUNDS. SHE DENIES CHEST PAIN OR WEAKNESS THIS MORNING. HER VITALS THIS MORNING ARE 98.5-63-18-98%-137/63. SHE IS HEMODYNAMICALLY STABLE TODAY. CARDIAC ENZYMES AND EKGS HAVE BEEN WITHIN NORMAL LIMITS. WE PLANNED FOR DISCHARGE. SHE WAS INSTRUCTED TO CONTINUE HER REGULAR MEDICATIONS AND FOLLOW UP IN THE OFFICE IN 2 WEEKS. SHE VERBALIZED UNDERSTANDING OF ORDERS. SHE WAS DISCHARGED HOME WITH FAMILY IN STABLE CONDITION. - Discharge Medications Discharge Medications: Home Medication List levothyroxine 125 mcg PO DAILY 05/12/18 [History] Prescriptions: - Discharge Plan Disposition: HOME, SELF-CARE Condition: Stable - Follow up/Referrals Follow up/Referrals: Bart Johnson [Primary Care Provider] - 05/27/18 9:20 am - Instructions Instructions: Shortness of Breath, Adult, [id number], Heart-Healthy Eating Plan, [id number], Chest Wall Pain, [id number], Form - Blood Pressure Record Sheet, Nonspecific Chest Pain, [id number], Heart Failure, [id number], Living With Heart Failure, Heart Failure Eating Plan, Form - Daily Weight Record Additional Instructions: DIET TOLERATED. ACTIVITY TOLERATED. Forms: Patient Portal
== END 2018-05-13 10:30 | disposition home or self-care (01) ==
LOC: MED/SURG 16:52 → ER 16:52 → MED/SURG 22:26
PROVIDERS: ADMIT Obstetrics & Gynecology Obstetrics; ATTEND Internal Medicine
DX: R53.1 Weakness; E87.6 Hypokalemia; I25.10 Atherosclerotic heart disease of native coronary artery without angina pectoris; E78.2 Mixed hyperlipidemia; E86.0 Dehydration; R07.89 Other chest pain; F41.8 Other specified anxiety disorders
CPT/HCPCS: 36415; 71010; 71045; 80053; 80061; 82550; 82553; 83735; 84132; 84484; 85025; 93005; 94760; 96365; 96374; 99284; A4216; A4222; G0378; J2270

== ENCOUNTER 2018-08-06 13:46 | Observation (INO) ==
[2018-08-06 15:27] LABS: BASOPHILS % (AUTO) 0.5 % (0.2-1.0); HEMATOCRIT 31.3 % (36.0-47.0); HEMOGLOBIN 9.8 g/dL (12.0-16.0); LYMPHOCYTES # (AUTO) 0.7 X10^3/uL (1.3-2.9); LYMPHOCYTES % (AUTO) 18.3 % (21.0-51.0); MEAN CORPUSCULAR HEMOGLOBIN 24.2 pg (27.0-34.0); MEAN CORPUSCULAR HGB CONC 31.4 g/dL (33.0-35.0); MEAN CORPUSCULAR VOLUME 77.2 fL (80.0-100.0); MEAN PLATELET VOLUME 7.3 fL (7.4-11.0); MONOCYTES # (AUTO) 0.4 x10^3/uL (0.3-0.8); MONOCYTES % (AUTO) 9.6 % (0.0-13.0); NEUTROPHILS # (AUTO) 2.9 x10^3/uL (2.2-4.8); NEUTROPHILS % (AUTO) 70.6 % (42.0-75.0); PLATELET COUNT 272 X10^3/uL (150.0-450.0); RED BLOOD COUNT 4.06 X10^6/uL (3.5-5.4); RED CELL DISTRIBUTION WIDTH 16.8 % (11.6-16.5); WHITE BLOOD COUNT 4.1 X10^3/uL (3.6-10.0)
[2018-08-06 15:32] LABS: HYPOCHROMASIA SLIGHT; MICROCYTOSIS SLIGHT; PLATELET MORPHOLOGY COMMENT NORMAL (NORMAL)
[2018-08-06 15:37] LABS: ALANINE AMINOTRANSFERASE 13 Units/L (12-78); ALBUMIN 3.7 g/dL (3.4-5.0); ALKALINE PHOSPHATASE 70 Units/L (46-116); ASPARTATE AMINO TRANSFERASE 17 Units/L (15-37); BLOOD UREA NITROGEN 11 mg/dL (7-18); CARBON DIOXIDE 25.5 mmol/L (21-32); CHLORIDE 105 mmol/L (98-107); SODIUM 140 mmol/L (136-145); TOTAL PROTEIN 7.3 g/dL (6.4-8.2); eGFR NON BLACK RACES > 60 (>60)
[2018-08-06] MEDS: NS 1000 ML 1,000 ML IV SCH (15:40)
[2018-08-06 15:44] VITALS: BMI 28.8
[2018-08-06] MEDS: ZOFRAN INJ 4 MG VIAL IVP PRN (17:15)
[2018-08-06] MEDS ORDERED: ULTRAM PO PRN (17:23)
[2018-08-06] MEDS ORDERED: CATAPRES-TTS-1 TD SCH (18:00)
[2018-08-06] MEDS: LASIX PO SCH (20:29)
[2018-08-06] MEDS: COREG TAB 12.5 MG PO SCH (20:30)
[2018-08-06] MEDS: PROTONIX TAB 40 MG PO SCH (20:30)
[2018-08-06] MEDS: KLONOPIN TAB 0.5 MG PO PRN (20:30)
[2018-08-06] MEDS ORDERED: PHENERGAN INJ 25 MG IM PRN (20:42)
[2018-08-07] MEDS: NS 1000 ML 1,000 ML IV SCH ×4 (02:06→23:37)
[2018-08-07 05:31] LABS: BASOPHILS % (AUTO) 0.5 % (0.2-1.0); EOSINOPHILS % (AUTO) 1.4 % (0.9-2.9); HEMOGLOBIN 8.6 g/dL (12.0-16.0); LYMPHOCYTES # (AUTO) 0.7 X10^3/uL (1.3-2.9); LYMPHOCYTES % (AUTO) 20.4 % (21.0-51.0); MEAN CORPUSCULAR HGB CONC 33.2 g/dL (33.0-35.0); MEAN CORPUSCULAR VOLUME 78.2 fL (80.0-100.0); MEAN PLATELET VOLUME 8.2 fL (7.4-11.0); MONOCYTES # (AUTO) 0.3 x10^3/uL (0.3-0.8); NEUTROPHILS # (AUTO) 2.4 x10^3/uL (2.2-4.8); NEUTROPHILS % (AUTO) 68.7 % (42.0-75.0); PLATELET COUNT 219 X10^3/uL (150.0-450.0); RED BLOOD COUNT 3.32 X10^6/uL (3.5-5.4); RED CELL DISTRIBUTION WIDTH 16.6 % (11.6-16.5); WHITE BLOOD COUNT 3.5 X10^3/uL (3.6-10.0)
[2018-08-07 05:42] LABS: ALANINE AMINOTRANSFERASE 11 Units/L (12-78); ALKALINE PHOSPHATASE 53 Units/L (46-116); ASPARTATE AMINO TRANSFERASE 16 Units/L (15-37); BLOOD UREA NITROGEN 8 mg/dL (7-18); CALCIUM 8.3 mg/dL (8.5-10.1); CARBON DIOXIDE 22.3 mmol/L (21-32); CHLORIDE 108 mmol/L (98-107); COR CA(FOR HYPOALB) 9.1 mg/dL (8.5-10.1); CREATININE 0.65 mg/dL (0.55-1.02); SODIUM 142 mmol/L (136-145); TOTAL PROTEIN 5.9 g/dL (6.4-8.2); eGFR NON BLACK RACES > 60 (>60)
[2018-08-07] MEDS: NORCO 10/325 TAB PO PRN ×2 (08:32→18:15)
[2018-08-07] MEDS: MICRO K EXTEN CAP 10 MEQ PO SCH (08:33)
[2018-08-07] MEDS: KLONOPIN TAB 0.5 MG PO PRN ×2 (08:33→20:50)
[2018-08-07] MEDS: SYNTHROID 125 mcg TAB PO SCH (08:34)
[2018-08-07] MEDS: LASIX PO SCH (08:34)
[2018-08-07] MEDS: PROTONIX TAB 40 MG PO SCH ×2 (08:35→20:50)
[2018-08-07] MEDS: COREG TAB 12.5 MG PO SCH ×2 (08:35→20:49)
[2018-08-07] MEDS: ZOFRAN INJ 4 MG VIAL IVP PRN ×2 (08:37→21:43)
[2018-08-07] MEDS ORDERED: PROCALAMINE 3 % 1,000 ML IV SCH (11:00)
[2018-08-07] MEDS: MAGNESIUM SULFATE 1 GRAM/100 mL PREMIX 1 GM/100 ML BAG IV PRN ×2 (15:10→16:52)
--- NOTE | 2018-08-07 17:19 | DR.UPDATE ---
H&P Update History and Physical Update: History and Physical reviewed and patient examined. Changes noted: Yes with the following: PRESENTED TO THE OFFICE WITH COMPLAINTS OF NAUSEA, VOMITING, AND DIARRHEA FOR THE PAST 5 DAYS. SHE REPORTS USING IMODIUM AT HOME WITHOUT RELIEF OF SYMPTOMS. SHE HAS BEEN RECEIVING IV FLUIDS IN THE OFFICE WITHOUT IMPROVEMENT NOTED. WE ADMITTED HER FOR FURTHER EVALUATION AND TREATMENT. ON ARRIVAL TO THE HOSPITAL, VITALS WERE 98.9-61-18-99%-208/82. LABS WERE OBTAINED. ABNORMAL LAB VALUES INCLUDED THE FOLLOWING: hgb 9.8, hct 31.3, potassium 3.3. WE PLAN TO OBTAIN AN ABD/PELVIS CT WITH CONTRAST. WE WILL ALSO OBTAIN STOOL STUDIES AND START NORMAL SALINE AT 125ML/HR AND RESUME HER HOME MEDICATIONS. OTHERWISE, WE WILL FOLLOW UP WITH AM LABS AND CONTINUE TO MONITOR. Prescription drug monitoring program results: PDMP reviewed and no concerns identified
[2018-08-07] MEDS ORDERED: LASIX PO PRN (17:40)
[2018-08-07 20:04] LABS: STOOL FOR WBC POSITIVE (NEGATIVE)
[2018-08-07 20:06] LABS: CRYPTOSPORIDIUM PARVUM ANTIGEN NEGATIVE (NEGATIVE); GIARDIA LAMBLIA ANTIGEN NEGATIVE (NEGATIVE)
[2018-08-08 05:22] LABS: BASOPHILS % (AUTO) 0.5 % (0.2-1.0); EOSINOPHILS # (AUTO) 0.1 x10^3/uL (0.0-0.2); EOSINOPHILS % (AUTO) 1.6 % (0.9-2.9); HEMATOCRIT 25.9 % (36.0-47.0); HEMOGLOBIN 8.4 g/dL (12.0-16.0); LYMPHOCYTES # (AUTO) 0.8 X10^3/uL (1.3-2.9); LYMPHOCYTES % (AUTO) 23.3 % (21.0-51.0); MEAN CORPUSCULAR HEMOGLOBIN 25.1 pg (27.0-34.0); MEAN CORPUSCULAR HGB CONC 32.4 g/dL (33.0-35.0); MEAN CORPUSCULAR VOLUME 77.3 fL (80.0-100.0); MONOCYTES # (AUTO) 0.3 x10^3/uL (0.3-0.8); MONOCYTES % (AUTO) 9.5 % (0.0-13.0); NEUTROPHILS # (AUTO) 2.4 x10^3/uL (2.2-4.8); NEUTROPHILS % (AUTO) 65.1 % (42.0-75.0); PLATELET COUNT 233 X10^3/uL (150.0-450.0); RED BLOOD COUNT 3.34 X10^6/uL (3.5-5.4); RED CELL DISTRIBUTION WIDTH 17.1 % (11.6-16.5); WHITE BLOOD COUNT 3.6 X10^3/uL (3.6-10.0)
[2018-08-08 05:28] LABS: ALANINE AMINOTRANSFERASE 9 Units/L (12-78); ALBUMIN 2.8 g/dL (3.4-5.0); ALKALINE PHOSPHATASE 49 Units/L (46-116); ASPARTATE AMINO TRANSFERASE 13 Units/L (15-37); BLOOD UREA NITROGEN 4 mg/dL (7-18); CARBON DIOXIDE 27.5 mmol/L (21-32); CHLORIDE 109 mmol/L (98-107); CREATININE 0.79 mg/dL (0.55-1.02); SODIUM 142 mmol/L (136-145); TOTAL PROTEIN 5.8 g/dL (6.4-8.2); eGFR NON BLACK RACES > 60 (>60)
[2018-08-08] MEDS ORDERED: POTASSIUM CHLORIDE LIQ 20 MEQ UDC PO PRN (05:43)
[2018-08-08] MEDS ORDERED: KLOR-CON PO PRN (05:43)
[2018-08-08] MEDS ORDERED: K-RIDER 10 MEQ/NS 100 ML 10 MEQ/100 ML BAG IV PRN (05:43)
[2018-08-08] MEDS ORDERED: MICRO K EXTEN CAP 10 MEQ PO PRN (05:43)
[2018-08-08] MEDS ORDERED: POTASSIUM CHL 40 MEQ/NS 0.45% 500 ML IV PRN (05:43)
[2018-08-08] MEDS ORDERED: POTASSIUM CHL 60 MEQ/NS 0.45% 500 ML IV PRN (05:43)
[2018-08-08] MEDS ORDERED: K-DUR TAB 20 MEQ ONE (05:51)
[2018-08-08] MEDS: K-DUR TAB 20 MEQ PO PRN ×2 (06:00→08:58)
[2018-08-08 06:07] LABS: ANISOCYTOSIS SLIGHT; HYPOCHROMASIA SLIGHT; PLATELET MORPHOLOGY COMMENT NORMAL (NORMAL)
[2018-08-08] MEDS: NS 1000 ML 1,000 ML IV SCH (06:31)
[2018-08-08] MEDS: SYNTHROID 125 mcg TAB PO SCH (08:57)
[2018-08-08] MEDS: COREG TAB 12.5 MG PO SCH (08:58)
[2018-08-08] MEDS: PROTONIX TAB 40 MG PO SCH (08:58)
[2018-08-08] MEDS: MICRO K EXTEN CAP 10 MEQ PO SCH (08:59)
[2018-08-08 09:46] VITALS: BP 171/72
== END 2018-08-08 10:20 | disposition home or self-care (01) ==
LOC: MED/SURG
PROVIDERS: ADMIT Internal Medicine; ATTEND Internal Medicine
DX: R19.7 Diarrhea, unspecified; R11.2 Nausea with vomiting, unspecified; I25.10 Atherosclerotic heart disease of native coronary artery without angina pectoris; E86.0 Dehydration; Z79.01 Long term (current) use of anticoagulants; E78.2 Mixed hyperlipidemia; R10.13 Epigastric pain; I10 Essential (primary) hypertension; R53.1 Weakness; I48.91 Unspecified atrial fibrillation; Z79.899 Other long term (current) drug therapy
CPT/HCPCS: 36415; 74177; 80053; 82270; 83630; 83735; 85025; 87045; 87328; 87329; 87427; 87449; 87493; 87899; 96367; 96374; A4222; B5200; G0378; J2405; J2550; J3475; J7030

== ENCOUNTER 2022-04-14 10:15 | Observation (INO) ==
--- NOTE | 2022-04-14 10:42 | DR.AMS ---
HPI Time Seen Time Seen by Provider: 04/14/22 10:35 Complaint Cheif Complaint Doctors Comments: EPISODE OF MEMORY LOSS THIS AM AT WORK. SIMULAR EPISODE 6 DAYS AGO AND DID NOT HAVE EVALUATION. WE STARTED THE STROKE WORKUP. PMH PMH Past Medical History: Anxiety, CHF, Coronary Artery Disease, Dyslipidemia and Hypertension Past Surgical History: Yes Surgical History: Appendectomy, Cholecystectomy and Hysterectomy Family History Family Medical History: Diabetes Mellitus, Cancer and Hypertension Social History Do you use any recreational Drugs:: No ROS Review of Systems Constitutional: Other (CHANGE IN MENTAL STATUS) Eyes: No Symptoms Reported ENTM: No Symptoms Reported Respiratoy: No Symptoms Reported Cardiovascular: Palpitations Gastrointestinal/Abdominal: No Symptoms Reported Genitourinary: No Symptoms Reported Neurological: Headache Musculoskeletal: No Symptoms Reported Integumentary: No Symptoms Reported Hematologic/Lymphatic: No Symptoms Reported Endocrine: No Symptoms Reported Psychiatric: No Symptoms Reported PE Vitals Vital Signs: Temp Pulse Resp BP BP BP Pulse Ox 08/08/18 04:00 167/68 04/14/22 12:00 20 04/14/22 11:30 16 04/14/22 11:15 74 15 98 04/14/22 11:01 94 H 23 97 04/14/22 11:01 177/77 04/14/22 11:00 75 29 H 04/14/22 10:48 73 25 H 98 04/14/22 10:35 98.4 F 67 22 144/66 99 04/19/21 08:55 188/81 04/19/21 08:30 188/81 O2 Del Method 08/08/18 04:00 04/14/22 12:00 04/14/22 11:30 04/14/22 11:15 04/14/22 11:01 04/14/22 11:01 04/14/22 11:00 04/14/22 10:48 04/14/22 10:35 Room Air 04/19/21 08:55 04/19/21 08:30 General Limitations: No Limitations General Appearance: In Distress (MILD DISTRESS) Eyes Eye exam: Normal Appearance, PERRL and EOMI Pupils: Regular, Round: Bilateral ENT ENT Exam: Normal Exam, Normal Oropharynx and Normal External Ear Exam External Ear Exam: Normal External Inspection TM/Canal Exam: Bilateral: Normal Nose Exam: Normal Nose Exam Mouth Exam: Normal Inspection Throat Exam: Normal Inspection Neck Neck Exam: Normal Inspection and Full ROM Chest Chest Inspection: Normal Inspection Respiratory Respiratory Exam: Normal Lung Sounds Bilat Cardiovascular Cardiovascular Exam: Regular Rate and Normal Rhythm Abdominal Exam Abdominal Exam: Normal Inspection, Normal Bowel Sounds and Soft Extremities Extremities Exam: Normal Inspection and Full ROM Back Back Exam: Normal Inspection and Full ROM Neurological Neurological Exam: Alert, Oriented X3 and CN II-XII Intact Patient Oriented To: Person, Place and Time Speech: Fluid Speech Cranial Nerve Exam: EOM Function (II, III, IV, ): Normal Motor Strength - LUE: 4/5 Motor Strength - RUE: 4/5 Motor Strength - LLE: 4/5 Motor Strength - RLE: 4/5 Upper Motor Neuron Exam: Bernardo Neglect: Normal Psychological Psychiatric Exam: Normal Affect and Normal Mood MDM Differential Diagnosis Metabolic: Dehydration Structural: CVA Toxicologic: Medication Toxicity COURSE Treatment Treatment: PATIENT REMAINED RELATIVELY STABLE IN ER . HAD STROKE ALERT DONE AND DR BOONE WAS THE NEUROLOGIST. SHE STATED THAT AT THIS TIME IT APPEARS THAT THE PATIENT IS HAVING A TIA BUT WILL NEED MRI TO FURTHER ASSESS. SUGGESTED TO REFER TO OBSERVVATION TO GET DONE IN HOSPITAL IF ANY NEW FINDINGS WILL NEED TO TRANSFER TO FACILITY THAT HAS NEUROLOGIST ON STAFF. THE PATIENT WAS TOLD OF THE INTENT AND AGREED TO THE PLAN. DR LEON WAS CALLED AT 1225 AND HE STATED TO REFER THE PATIENT TO OBSERVAION AND CONTINUE ELEQUIS AND CONTROL BP. DO NOT SCHEDULE FOR MRI HE WILL REPEAT THE CT SCAN ON TOMORROW IF NEEDED. ROR Labs Reviewed Laboratory Results Reviewed?: Yes Result Diagrams: 04/14/22 11:00 04/14/22 11:00 Laboratory: WBC 7.6 X10^3/uL (3.6-10.0) 04/14/22 11:00 RBC 4.60 X10^6/uL (3.5-5.4) 04/14/22 11:00 Hgb 11.8 g/dL (12.0-16.0) L 04/14/22 11:00 Hct 36.9 % (36.0-47.0) 04/14/22 11:00 MCV 80.2 fL (80.0-100.0) 04/14/22 11:00 MCH 25.7 pg (27.0-34.0) L 04/14/22 11:00 MCHC 32.1 g/dL (33.0-35.0) L 04/14/22 11:00 RDW 24.8 % (11.6-16.5) H 04/14/22 11:00 Plt Count 351 X10^3/uL (150.0-450.0) 04/14/22 11:00 Plt Count Comment Adequate (ADEQUATE) 04/14/22 11:00 MPV 8.5 fL (7.4-11.0) 04/14/22 11:00 Neut % (Auto) 78.1 % (42.0-75.0) H 04/14/22 11:00 Lymph % (Auto) 8.5 % (21.0-51.0) L 04/14/22 11:00 [place] % (Auto) 9.9 % (0.0-13.0) 04/14/22 11:00 Eos % (Auto) 2.6 % (0.9-2.9) 04/14/22 11:00 Baso % (Auto) 0.9 % (0.2-1.0) 04/14/22 11:00 Neut # (Auto) 5.9 x10^3/uL (2.2-4.8) H 04/14/22 11:00 Lymph # (Auto) 0.6 X10^3/uL (1.3-2.9) L 04/14/22 11:00 [place] # (Auto) 0.7 x10^3/uL (0.3-0.8) 04/14/22 11:00 Eos # (Auto) 0.2 x10^3/uL (0.0-0.2) 04/14/22 11:00 Baso # (Auto) 0.1 X10^3/uL (0.0-0.1) 04/14/22 11:00 Absolute Nucleated RBC 0.0 /100WBC 04/14/22 11:00 Plt Morphology Comment Normal (NORMAL) 04/14/22 11:00 RBC Morphology Abnormal (NORMAL) A 04/14/22 11:00 Anisocytosis 3+ A 04/14/22 11:00 Ovalocytes Present 04/14/22 11:00 Schistocytes Present 04/14/22 11:00 PT 16.2 SECONDS (11.8-14.3) 04/14/22 11:00 INR Target Range - 02/10/23 11:00 INR 1.35 (0.8-1.3) H 04/14/22 11:00 APTT 32.3 SECONDS (22.9-36.5) 04/14/22 11:00 PTT Comment - 04/14/22 11:00 Fibrinogen 394 mg/dL (239-489) 04/14/22 11:00 Sodium 139 mmol/L (136-145) 04/14/22 11:00 Corrected Sodium 140 mmol/L (136-145) 04/14/22 11:00 Potassium 3.9 mmol/L (3.5-5.1) 04/14/22 11:00 Chloride 100 mmol/L (98-107) 04/14/22 11:00 Carbon Dioxide 31.8 mmol/L (21-32) 04/14/22 11:00 BUN 14 mg/dL (7-18) 04/14/22 11:00 Creatinine 0.87 mg/dL (0.55-1.02) 04/14/22 11:00 Est GFR (MDRD) Af Amer > 60 (>60) 04/14/22 11:00 Est GFR (MDRD) Non-Af > 60 (>60) 04/14/22 11:00 Glucose 145 mg/dL (65-99) H 04/14/22 11:00 Calcium 9.0 mg/dL (8.5-10.1) 04/14/22 11:00 Corrected Calcium TNP 04/14/22 11:00 Total Bilirubin 0.60 mg/dL (0.2-1.0) 04/14/22 11:00 AST 17 Units/L (15-37) 04/14/22 11:00 ALT 9 Units/L (12-78) L 04/14/22 11:00 Alkaline Phosphatase 112 Units/L (46-116) 04/14/22 11:00 Creatine Kinase 37 Units/L (26-192) 04/14/22 11:00 Troponin I High Sens 41.6 ng/L (4.0-60.0) 04/14/22 11:00 Total Protein 7.6 g/dL (6.4-8.2) 04/14/22 11:00 Albumin 3.8 g/dL (3.4-5.0) 04/14/22 11:00 Globulin 3.8 g/dL (2.5-4.5) 04/14/22 11:00 Albumin/Globulin Ratio 1.0 Ratio (1.1-2.1) L 04/14/22 11:00 Triglycerides 111 mg/dL (0-150) 04/14/22 11:00 Cholesterol 154 mg/dL (0-200) 04/14/22 11:00 LDL Cholesterol, Calc 55 mg/dL (0-100) 04/14/22 11:00 HDL Cholesterol 77 mg/dL (40-60) H 04/14/22 11:00 Cholesterol/HDL Ratio 2.0 (0.0-5.0) 04/14/22 11:00 Blood Type O POSITIVE 04/14/22 11:15 Antibody Screen Positive 04/14/22 11:10 Opioid Opioid Risk Tool Age (Jorge box if 16-45): No History of Preadolescent Sexual Abuse: No Total: 0 Total Score Risk Category: Low Risk Copyright: German SHERMAN predicting aberrant behaviors Discharge Plan Diagnosis Discharge Problem: Brain TIA, Headache, Altered mental status Discharge Plan Patient Disposition: ADMITTED INPATIENT Condition: Stable Prescriptions: No Action potassium chloride 10 MEQ capsule, extended release 10 meq PO DAILY carvedilol 12.5 MG tablet 12.5 mg PO BID clonazepam 0.5 MG tablet 0.25 mg PO BID PRN (Reason: Anxiety) hydrocodone-acetaminophen 1 EACH tablet 1 tab PO QID PRN clonidine 0.1 mg/24 hr patch weekly 0.1 mg topical WEEKLY pantoprazole 40 mg Tablet,Delayed Release (Dr/Ec) 40 mg PO BID furosemide 40 MG tablet 60 mg PO BID Rx Instructions: TAKE 1 TABLET BY MOUTH TWICE A DAY ciprofloxacin HCl [Cipro] 500 mg Tablet 500 mg PO BID Qty: 20 0RF Rx Instructions: TAKE ONE TABLET TWICE A DAY FOR 10 DAYS diphenoxylate-atropine [Lomotil] 2.5-0.025 mg Tablet 1 tab PO QDAY PRNQty: 20 0RF Rx Instructions: TAKE ONE TABLET DAILY NEEDED FOR DIARRHEA Hemocyte-Plus 106 mg iron- 1 mg Capsule 1 cap PO QDAY Qty: 30 3RF Rx Instructions: TAKE ONE CAPSULE DAILY. administer between meals sucralfate [Carafate] 1 gram tablet 1 g PO QID Qty: 20 0RF levothyroxine 125 mcg tablet 125 mcg PO DAILY tramadol 50 mg tablet 50 mg PO Q8H PRN (Reason: pain) Qty: 15 0RF Health Concerns: Post Hospitalization: new medications and changes needed to prevent readmission or further decline. Pt educated and given instructions on all concerns. Plan of Treatment: Continue with present treatment and follow up plan. Pt is to keep follow up appointment as instructed and take medications as ordered. Orders to Discharge Patient Discharge Orders: Transfer (Routine); Ordered 04/14/22 Ordered By: Alejandro Hall Follow ups/Referrals Follow ups/Referrals: Bart Leon [Primary Care Provider] - 3 days
--- NOTE | 2022-04-14 11:00 | EKG ---
Test Reason : AMS, R/O CVA Blood Pressure : */* mmHG Vent. Rate : 74 BPM Atrial Rate : * BPM P-R Int : * ms QRS Dur : 88 ms QT Int : 386 ms P-R-T Axes : * 114 215 degrees QTc Int : 428 ms Atrial fibrillation with premature ventricular or aberrantly conducted complexes Lateral infarct , age undetermined Abnormal ECG No previous ECGs available Confirmed by Johny Novoa ([id number]) on 04/14/2022 2:37:09 PM Referred By: Confirmed By: Johny Noova
--- NOTE | 2022-04-14 11:07 | CT ---
HISTORYAMS, STROKE PROTOCOLSTUDYBRAIN W/O CONCOMPARISONCT brain 11/20/2016. Only the report is available at the time of this dictation (images not available).TECHNIQUEMultiple axial images of the head were performed from the skullbase to the vertex using standard departmental protocol. Sagittal and coronal reformatted images were performed. Dose reduction techniques including Automated Exposure Control (AEC) and adjustment of mA and kV were utilized.FINDINGSThe lateral ventricles and basilar cisterns are patent.No parenchymal mass or hematoma. Cervantes-white differentiation appears acutely preserved. Mild low attenuation change in the subcortical and deep supratentorial white matter. Brain atrophy likely age-appropriate.No extra-axial collection.The globes are intact.No air fluid levels in the paranasal sinuses. Opacified right maxillary sinus with internal hyperdensity. No paranasal sinus wall thickening or sclerosis. Mastoid air cells are clear.The calvarium is intact. Small right frontal scalp hematoma.IMPRESSIONThere is a small right frontal scalp hematoma.Moderate chronic small vessel disease. Consider MRI for further evaluation of acute infarct as clinically warranted.Opacified right maxillary sinus. Please correlate for sinusitis.Electronically signed by: Garrett Watson (Apr 14, 2022 11:05:46)
[2022-04-14] MEDS ORDERED: ZOFRAN INJ 4 MG VIAL ONE ×2 (11:16→23:28)
[2022-04-14] MEDS ORDERED: ZOFRAN INJ 4 MG VIAL IVP ONE (11:16)
[2022-04-14] MEDS ORDERED: DEMEROL INJ IVP ONE ×2 (11:22→13:40)
[2022-04-14] MEDS ORDERED: DEMEROL INJ ONE ×2 (11:24→13:36)
[2022-04-14 11:28] LABS: BASOPHILS # (AUTO) 0.1 X10^3/uL (0.0-0.1); BASOPHILS % (AUTO) 0.9 % (0.2-1.0); EOSINOPHILS # (AUTO) 0.2 x10^3/uL (0.0-0.2); EOSINOPHILS % (AUTO) 2.6 % (0.9-2.9); HEMATOCRIT 36.9 % (36.0-47.0); HEMOGLOBIN 11.8 g/dL (12.0-16.0); LYMPHOCYTES # (AUTO) 0.6 X10^3/uL (1.3-2.9); LYMPHOCYTES % (AUTO) 8.5 % (21.0-51.0); MEAN CORPUSCULAR HEMOGLOBIN 25.7 pg (27.0-34.0); MEAN CORPUSCULAR HGB CONC 32.1 g/dL (33.0-35.0); MEAN CORPUSCULAR VOLUME 80.2 fL (80.0-100.0); MEAN PLATELET VOLUME 8.5 fL (7.4-11.0); MONOCYTES # (AUTO) 0.7 x10^3/uL (0.3-0.8); MONOCYTES % (AUTO) 9.9 % (0.0-13.0); NEUTROPHILS # (AUTO) 5.9 x10^3/uL (2.2-4.8); NEUTROPHILS % (AUTO) 78.1 % (42.0-75.0); RED CELL DISTRIBUTION WIDTH 24.8 % (11.6-16.5); WHITE BLOOD COUNT 7.6 X10^3/uL (3.6-10.0)
[2022-04-14 11:33] LABS: INR 1.35 (0.8-1.3)
[2022-04-14 11:38] LABS: ALANINE AMINOTRANSFERASE 9 Units/L (12-78); ALBUMIN 3.8 g/dL (3.4-5.0); ALKALINE PHOSPHATASE 112 Units/L (46-116); ASPARTATE AMINO TRANSFERASE 17 Units/L (15-37); BLOOD UREA NITROGEN 14 mg/dL (7-18); CARBON DIOXIDE 31.8 mmol/L (21-32); CHLORIDE 100 mmol/L (98-107); CHOLESTEROL 154 mg/dL (0-200); COR NA(FOR HYPERGLY) 140 mmol/L (136-145); CREATINE KINASE 37 Units/L (26-192); CREATININE 0.87 mg/dL (0.55-1.02); HDL CHOLESTEROL 77 mg/dL (40-60); SODIUM 139 mmol/L (136-145); TOTAL PROTEIN 7.6 g/dL (6.4-8.2); TRIGLYCERIDES 111 mg/dL (0-150); eGFR NON BLACK RACES > 60 (>60)
[2022-04-14 12:19] LABS: PLATELET MORPHOLOGY COMMENT NORMAL (NORMAL)
[2022-04-14 12:20] LABS: ANISOCYTOSIS 3+; OVALOCYTES PRESENT; SCHISTOCYTES PRESENT
--- NOTE | 2022-04-14 12:23 | RAD ---
HISTORYAMS, STROKE PROTOCOLSTUDYCHEST, 1 [id number]/2021FINDINGSThe cardiomediastinal silhouette is stable. No acute airspace disease. No pneumothorax or effusion. The bony thorax appears intact.IMPRESSIONNo acute cardiopulmonary disease.Electronically signed by: JOANIE RINCON (Apr 14, 2022 12:22:27)
--- NOTE | 2022-04-14 12:54 | TELESTROKE ---
Tele[facility]ist Consult Date of Consult Date of Exam: 04/14/22 Time of Arrival to the ED: 10:15 Allergies Allergies Allergy/AdvReac Type Severity Reaction Status Date / Time prednisone Allergy Verified 03/31/21 08:31 zolpidem [From Ambien] Allergy Verified 04/14/22 11:23 Vital Signs Vital Signs: Temp Pulse Resp BP BP BP Pulse Ox 08/08/18 04:00 167/68 04/14/22 11:30 16 04/14/22 11:15 74 15 98 04/14/22 11:01 94 H 23 97 04/14/22 11:01 177/77 04/14/22 11:00 75 29 H 04/14/22 10:48 73 25 H 98 04/14/22 10:35 98.4 F 67 22 144/66 99 04/19/21 08:55 188/81 04/19/21 08:30 188/81 O2 Del Method 08/08/18 04:00 04/14/22 11:30 04/14/22 11:15 04/14/22 11:01 04/14/22 11:01 04/14/22 11:00 04/14/22 10:48 04/14/22 10:35 Room Air 04/19/21 08:55 04/19/21 08:30 History of Present Illness History of Present Illness: [facility] Tele[facility]urology Consult [facility] Patient Name: CLIF MARTINS Date of : 1945 Identification Number: Date of Service: 04/14/2022 10:32:27 Diagnosis: R41.3 - Other amnesia G45.9 - Transient cerebral ischemic attack, unspecified Impression: 76 yr old right handed female with hx of Afib on Eliquis, CAD s/p stents, CHF, HLD,HTN Anxiety, was at work today when she had episode of AMS associated with a left side headache. she reports last Sunday she had a similar event and was confused for most of the day. she did not seek medical attention. she reports she is compliant with taking her Eliquis. she states since last she has had tremors in her arms. her daughter in law is at bedside. she had a fall mid March, sustained rib fx, 2 days after had bladder surgery. she is awake and alert 0 x 4. NIHSS = 1 1 (left facial palsy minimal ) baseline, she has b/l upper extremity tremors, R > L . CT head non acute, right frontal scalp hematoma. Etiology unclear, possible encephalopathy, consider TIA, Advise admission for TIA work-up, continue Eliquis, pending her imaging studies consider routine EEG/follow-up with neurology. at this juncture would be cautions/hold use of tramadol. Our recommendations are outlined below. Recommendations: Stroke/Telemetry Floor Neuro Checks Bedside Swallow Eval DVT Prophylaxis IV Fluids, Normal Saline Head of Bed 30 Degrees Euglycemia and Avoid Hyperthermia (PRN Acetaminophen) Routine Consultation with Inhouse Neurology for Follow up Care Sign Out: Discussed with Emergency Department Provider Advanced Imaging: Advanced Imaging Not Completed because: Subacute strokes on CT and/or LKW beyond 6-24 hrs per guidelines for thrombectomy consideration, vascular studies can be completed routinely on admission Metrics: Last Known Well: Unknown [facility] Notification Time: 04/14/2022 10:32:27 Arrival Time: 04/14/2022 10:15:00 Stamp Time: 04/14/2022 10:32:27 Initial Response Time: 04/14/2022 10:33:51 Symptoms: amnesia / AMS. NIHSS Start Assessment Time: 04/14/2022 10:57:21 Patient is not a candidate for Thrombolytic. Thrombolytic Medical Decision: 04/14/2022 10:36:32 Patient was not deemed candidate for Thrombolytic because of following reasons: Use of NOAs within [address] head showed no acute hemorrhage or acute core infarct. ED Physician notified of diagnostic impression and management plan on 04/14/2022 11:15:39 History of Present Illness: Patient is a 76 year old Female. Patient was brought by EMS for symptoms of amnesia / AMS. 76 yr old right handed female with hx of Afib on Eliquis, CAD s/p stents, CHF, HLD,HTN Anxiety, was at work today when she had episode of AMS associated with a left side headache. she reports last Sunday she had a similar event and was confused for most of the day. he did not seek medical attention. she reports she is compliant with taking her Eliquis. she states since last she has had tremors in her arms. her daughter in law is at bedside. she had a fall mid March, sustained rib fx, 2 days after had bladder surgery. she is awake and alert 0 x 4 Past Medical History: Hypertension Hyperlipidemia Atrial Fibrillation Medications: Anticoagulant use: Yes Eliquis Antiplatelet use: Yes ASA Reviewed EMR for current medications Allergies: Reviewed Social History: Patient Is: Single Smoking: No Drug Use: No Family History: There is no family history of premature cerebrovascular disease pertinent to this consultation ROS : 14 Points Review of Systems was performed and was negative except mentioned in HPI. Past Surgical History: There Is No Surgical History Contributory To Todays Visit Examination: BP(176/68), Pulse(73), 1A: Level of Consciousness - Alert; keenly responsive + 0 1B: Ask Month and Age - Both Questions Right + 0 1C: Blink Eyes & Squeeze Hands - Performs Both Tasks + 0 2: Test Horizontal Extraocular Movements - Normal + 0 3: Test Visual Lynne - No Visual Loss + 0 4: Test Facial Palsy (Use Grimace if Obtunded) - Minor paralysis (flat nasolabial fold, smile asymmetry) + 1 5A: Test Left Arm Motor Drift - No Drift for 10 Seconds + 0 5B: Test Right Arm Motor Drift - No Drift for 10 Seconds + 0 6A: Test Left Leg Motor Drift - No Drift for 5 Seconds + 0 6B: Test Right Leg Motor Drift - No Drift for 5 Seconds + 0 7: Test Limb Ataxia (FNF/Heel-Lu) - No Ataxia + 0 8: Test Sensation - Normal; No sensory loss + 0 9: Test Language/Aphasia - Normal; No aphasia + 0 10: Test Dysarthria - Normal + 0 11: Test Extinction/Inattention - No abnormality + 0 NIHSS Score: 1 (left facial palsy minimal ) baseline Pre-Morbid Modified Prague Scale: 0 Points = No symptoms at all Patient/Family was informed the Neurology Consult would occur via TeleHealth consult by way of interactive audio and video telecommunications and consented t o receiving care in this manner. Patient is being evaluated for possible acute neurologic impairment and high probability of imminent or life-threatening deterioration. I spent total of 36 minutes providing care to this patient, including time for face to face visit via telemedicine, review of medical records, imaging studies and discussion of findings with providers, the patient and/or family. Dr Amber Norman [facility] Case [id number] Medical Decision Making Result Diagrams: 04/14/22 11:00 04/14/22 11:00 Labs: Laboratory Results - last 24 hr 04/14/22 04/14/22 04/14/22 11:00 11:00 11:00 WBC 7.6 RBC 4.60 Hgb 11.8 L Hct 36.9 MCV 80.2 MCH 25.7 L MCHC 32.1 L RDW 24.8 H Plt Count 351 MPV 8.5 Neut % (Auto) 78.1 H Lymph % (Auto) 8.5 L [place] % (Auto) 9.9 Eos % (Auto) 2.6 Baso % (Auto) 0.9 Neut # (Auto) 5.9 H Lymph # (Auto) 0.6 L [place] # (Auto) 0.7 Eos # (Auto) 0.2 Baso # (Auto) 0.1 Absolute Nucleated RBC 0.0 PT 16.2 INR Target Range - INR 1.35 H APTT 32.3 PTT Comment - Fibrinogen 394 Sodium 139 Corrected Sodium 140 Potassium 3.9 Chloride 100 Carbon Dioxide 31.8 BUN 14 Creatinine 0.87 Est GFR (MDRD) Af Amer > 60 Est GFR (MDRD) Non-Af > 60 Glucose 145 H Calcium 9.0 Corrected Calcium TNP Total Bilirubin 0.60 AST 17 ALT 9 L Alkaline Phosphatase 112 Creatine Kinase 37 Total Protein 7.6 Albumin 3.8 Globulin 3.8 Albumin/Globulin Ratio 1.0 L Triglycerides 111 Cholesterol 154 LDL Cholesterol, Calc 55 HDL Cholesterol 77 H Cholesterol/HDL Ratio 2.0
[2022-04-14] MEDS ORDERED: KLONOPIN TAB 0.5 MG PO PRN (14:39)
[2022-04-14] MEDS ORDERED: CATAPRES-TTS-1 TD SCH (14:39)
[2022-04-14] MEDS: NORCO 10/325 TAB PO PRN ×2 (15:40→20:41)
[2022-04-14] MEDS ORDERED: CARAFATE PO SCH (17:00)
[2022-04-14 17:30] LABS: BILIRUBIN,URINE NEGATIVE (NEGATIVE); BLOOD/HEMOGLOBIN,URINE NEGATIVE (NEGATIVE); GLUCOSE, URINE NEGATIVE (NEGATIVE); KETONES,URINE NEGATIVE (NEGATIVE); LEUKOCYTE ESTERASE ,URINE 1+ (NEGATIVE); NITRITES,URINE NEGATIVE (NEGATIVE); PROTEIN,URINE 2+ (NEGATIVE); UROBILINOGEN,URINE 1+ (NORMAL)
[2022-04-14 17:42] LABS: APPEARANCE,URINE CLEAR (CLEAR); COLOR,URINE YELLOW (YELLOW)
[2022-04-14 17:43] LABS: BACTERIA,URINE TRACE /HPF (NEGATIVE); RBC,URINE 0-2 /HPF (0-3); SQUAMOUS EPITHELIAL CELL,UR MANY /HPF (NEGATIVE)
[2022-04-14] MEDS: COLACE CAP 100 MG PO SCH (20:40)
[2022-04-14] MEDS: PROTONIX TAB 40 MG PO SCH (20:40)
[2022-04-14] MEDS: COREG TAB 12.5 MG PO SCH (20:40)
[2022-04-14] MEDS: MILK OF MAGNESIA PO SCH (20:41)
[2022-04-14] MEDS ORDERED: NS 250 ML IV 250 ML IV PRN (21:33)
[2022-04-14] MEDS ORDERED: NS 250 ML IV 250 ML IV ONE (21:34)
[2022-04-14] MEDS ORDERED: NS 50 ML IV 50 ML IV ONE (21:37)
[2022-04-14] MEDS ORDERED: ROCEPHIN VIAL 1 GRAM ONE (21:53)
[2022-04-14] MEDS ORDERED: ROCEPHIN VIAL 1 GRAM 1 G in NS 100 ML IV + SPIKE MINIBAG* 100 ML IV SCH (22:00)
[2022-04-14] MEDS ORDERED: ROCEPHIN 1 GRAM IV PREMIX 1 G/50 ML IV.SOLN. IV SCH (22:00)
[2022-04-14] MEDS: ZOFRAN INJ 4 MG VIAL IVP PRN (23:40)
[2022-04-15 05:36] LABS: BASOPHILS % (AUTO) 0.5 % (0.2-1.0); EOSINOPHILS # (AUTO) 0.1 x10^3/uL (0.0-0.2); EOSINOPHILS % (AUTO) 1.9 % (0.9-2.9); HEMATOCRIT 29.4 % (36.0-47.0); LYMPHOCYTES # (AUTO) 0.7 X10^3/uL (1.3-2.9); LYMPHOCYTES % (AUTO) 10.9 % (21.0-51.0); MEAN CORPUSCULAR HEMOGLOBIN 25.8 pg (27.0-34.0); MEAN CORPUSCULAR HGB CONC 32.6 g/dL (33.0-35.0); MEAN CORPUSCULAR VOLUME 78.9 fL (80.0-100.0); MEAN PLATELET VOLUME 8.4 fL (7.4-11.0); MONOCYTES # (AUTO) 0.8 x10^3/uL (0.3-0.8); MONOCYTES % (AUTO) 11.5 % (0.0-13.0); NEUTROPHILS % (AUTO) 75.2 % (42.0-75.0); RED BLOOD COUNT 3.73 X10^6/uL (3.5-5.4); RED CELL DISTRIBUTION WIDTH 24.9 % (11.6-16.5); WHITE BLOOD COUNT 6.6 X10^3/uL (3.6-10.0)
[2022-04-15 05:55] LABS: ALANINE AMINOTRANSFERASE < 6 Units/L (12-78); ALBUMIN 2.7 g/dL (3.4-5.0); ALKALINE PHOSPHATASE 78 Units/L (46-116); ASPARTATE AMINO TRANSFERASE 10 Units/L (15-37); BLOOD UREA NITROGEN 11 mg/dL (7-18); CALCIUM 8.5 mg/dL (8.5-10.1); CHLORIDE 103 mmol/L (98-107); COR CA(FOR HYPOALB) 9.5 mg/dL (8.5-10.1); SODIUM 137 mmol/L (136-145); TOTAL PROTEIN 5.5 g/dL (6.4-8.2); eGFR NON BLACK RACES > 60 (>60)
[2022-04-15 06:02] LABS: HEMOGLOBIN 9.6 g/dL (12.0-16.0)
[2022-04-15 06:03] LABS: ANISOCYTOSIS 3+; HYPOCHROMASIA SLIGHT; PLATELET MORPHOLOGY COMMENT NORMAL (NORMAL)
[2022-04-15 06:04] LABS: MICROCYTOSIS SLIGHT; OVALOCYTES PRESENT; SCHISTOCYTES PRESENT
[2022-04-15] MEDS ORDERED: LEVSIN/MAALOX/LIDOC VISC ONE (08:03)
[2022-04-15] MEDS: LEVSIN/MAALOX/LIDOC VISC PO SCH ×4 (08:43→20:25)
[2022-04-15] MEDS: MICRO K EXTEN CAP 10 MEQ PO SCH (08:44)
[2022-04-15] MEDS: COREG TAB 12.5 MG PO SCH ×3 (08:44→20:36)
[2022-04-15] MEDS: PROTONIX TAB 40 MG PO SCH ×2 (08:45→20:29)
[2022-04-15] MEDS: HEMOCYTE-PLUS PO SCH (08:45)
[2022-04-15] MEDS: NORCO 10/325 TAB PO PRN ×3 (08:46→21:40)
[2022-04-15] MEDS: ZOFRAN INJ 4 MG VIAL IVP PRN ×3 (08:46→21:07)
[2022-04-15] MEDS ORDERED: SYNTHROID 125 mcg TAB PO SCH (09:00)
[2022-04-15] MEDS ORDERED: SYNTHROID 150 mcg TAB PO SCH (09:00)
[2022-04-15] MEDS: ESTRACE PO SCH (09:20)
[2022-04-15] MEDS: LASIX PO SCH ×2 (09:20→20:36)
[2022-04-15] MEDS: ELIQUIS PO SCH ×2 (09:20→20:29)
[2022-04-15 20:12] VITALS: BMI 26.2
[2022-04-15] MEDS: COLACE CAP 100 MG PO SCH (20:29)
[2022-04-15] MEDS: ROCEPHIN VIAL 1 GRAM 1 G in NS 100 ML IV 100 ML IV SCH (20:35)
[2022-04-15] MEDS: MILK OF MAGNESIA PO SCH (20:36)
[2022-04-15] MEDS ORDERED: KLONOPIN TAB 0.5 MG PO SCH (21:00)
--- NOTE | 2022-04-15 21:29 | DR.H&P ---
H&P - History & Physical for Day of: H&P Date: 04/14/22 - Chief Complaint Chief Complaint: CONFUSION, HEADACHE - History of Present Illness History of Present Illness: IS A 76 YEAR OLD PATIENT OF OURS. SHE PRESENTED TO THE ER WITH COMPLAINTS OF CONFUSION, DISORIENTATION, AND HEADACHE. PATIENT REPORTS THAT EPISODE OF CONFUSION AND DISORIENTATION HAS BEEN INTERMITTENT SINCE TRANSPORT AIRCREWMAN. HEADACHE HAS BEEN PERSISTENT SINCE THIS MOR KEVEN. SHE DESCRIBES HEADACHE DULL AND RATES IT A 4/10. SHE REPORTS HAVING A SIMILAR EPISODE OF CONFUSION ABOUT 6 DAYS AGO. SHE STARTED HAVING TREMORS IN THE ARMS AT THAT TIME. HER PMH INCLUDES: ANXIETY, CHF, CAD, DYSLIPIDEMIA, HTN, APPENDECTOMY, CHOLECYSTECTOMY, AND HYSTERECTOMY. SHE ALSO HAD A BLADDER TACT LAST MONTH. ON ARRIVAL TO THE HOSPITAL, VITALS WERE: 98.4-67-22-99%-144/66. LABS WERE OBTAINED. WBC 7.6, RBC 4.60, HGB 11.8, HCT 36.9, PLT COUNT 351, SODIUM 139, POTASSIUM 3.9, CHLORIDE 100, BUN 14, CREATININE 0.87, GLUCOSE 145, CALCIUM 9.0, AST 17, ALT 9, ALK PHOS 112, CREATINE KINASE 37, TROPONIN 41.6, TOTAL PROTEIN 7.6, ALBUMIN 3.8, TRIGLYCERIDES 111, CHOLESTEROL 154, LDL 55, HDL 77, INR 1.35. A URINALYSIS WAS OBTAINED. WBC 5-10, RBC 0-2, LEUKOCYTES 1+, BACTERIA TRACE. A BRAIN CT WAS OBTAINED AND REVEALED: There is a small right frontal scalp hematoma. Moderate chronic small vessel disease. Consider MRI for further evaluation of acute infarct as clinically warranted. Opacified right maxillary sinus. Please correlate for sinusitis. A CHEST XRAY WAS OBTAINED AND REVEALED: No acute cardiopulmonary disease. EKG WAS OBTAINED AND REVEALED: ATRIAL FIBRILLATION WITH PVCs. HR 74. SHE IS CURRENTLY ON ELIQUIS FOR ATRIAL FIBRILLATION. PATIENT HAD A TELENEUROLOGY CONSULT IN THE ER. IN THE ER, SHE WAS GIVEN ZOFRAN 4MG IV X 1 DOSE, DEMEROL 25MG IV X 2 DOSES, AND ROCEPHIN 1G IV X 1 DOSE. SHE WAS ADMITTED TO THE HOSPITAL FOR FURTHER EVALUATION AND TREATMENT OF ALTERED MENTAL STATUS, UTI, AND TIA. SHE WAS STARTED ON NORMAL SALINE AT KVO, ROCEPHIN 1G IV DAILY, GI COCKTAIL ML QID, COLACE 100MG HS, MILK OF MAGNESIA 30ML HS, ZOFRAN 4MG IV Q6H PRN. HER HOME MEDICATIONS OF ELIQUIS, COREG, KLONOPIN, CATAPRES, ESTRACE, LASIX, NORCO, SYNTHROID, HEMOCYTE PLUS, NITROSTAT, PROTONIX, AND POTASSIUM WERE RESUMED. OTHERWISE, WE WILL FOLLOW-UP WITH AM LABS AND CONTINUE TO MONITOR. TIME SPENT ON CLINICAL ASSESSMENT, REVIEWING LABS AND IMAGING, DECISION MAKING, AND DOCUMENTATION GREATER THAN 75 MINUTES. - Past Medical History Past Medical History: Coronary Artery Disease, Hypertension, Dyslipidemia, Anxiety, CHF - Past Surgical History Surgical History: Angioplasty/Stents, Appendectomy, Cholecystectomy, Hysterectomy, Tonsillectomy - Family History Family Medical History: Diabetes Mellitus, Cancer, [place], Coronary Artery Disease, Hypertension - Social History Does patient currently use any type of tobacco product: No Have you used tobacco products in the last 12 months: No Type of Tobacco Use: None Does any household member use tobacco: No Alcohol Use: None Drug Use: None - Medications Home Medications: prednisone Allergy (Verified 03/31/21 08:31) zolpidem [From Ambien] Allergy (Verified 04/14/22 11:23) CONTINUE taking the following medications apixaban 5 mg tablet (Eliquis) 1 tab PO BID 04/14/22 [History] estradiol 1 mg tablet 1 tab PO QDAY 04/14/22 [History] furosemide 20 mg tablet 1 tab PO BID 04/14/22 [History] hydrocodone 10 mg-acetaminophen 325 mg tablet 1 tab PO QID PRN 04/14/22 [History] levothyroxine 150 mcg tablet 1 tab PO QDAY 04/14/22 [History] nitroglycerin 0.4 mg sublingual tablet 1 tab sublingual Q5M PRN 04/14/22 [History] ondansetron 8 mg disintegrating tablet 1 tab PO Q6HR PRN 04/14/22 [History] - Review of Systems Constitutional: Weakness Eyes: No Symptoms Reported ENT: No Symptoms Reported Respiratory: No Symptoms Reported Cardiovascular: No Symptoms Reported Gastrointestinal: No Symptoms Reported Genitourinary: No Symptoms Reported Musculoskeletal: No Symptoms Reported Skin: No Symptoms Reported Neurological: See HPI, Weakness, Confusion, Other (HEADACHE ) - Physical Exam Vital Signs: Temperature 98.9 F Pulse Rate [Right Radial] 88 Pulse Rate 67 Respiratory Rate 20 Blood Pressure [Right Arm] 164/78 Blood Pressure [Left Arm] 187/89 Blood Pressure 158/72 O2 Sat by Pulse Oximetry 93 Oriented: Normal Eyes: Normal Ear: Normal Nose: Normal Throat: Normal Respiratory: Diminished Throughout Cardiovascular: Irregular : Normal Auscultation: Bowel Sounds: Normal Palpation: Normal Tenderness: Normal Skin: Normal Musculoskeletal: Normal Psychiatric: Normal Mood Description: Calm Affect: Normal Speech Pattern: Clear - Assessment/Plan (1) Urinary tract infection Qualifiers: Urinary tract infection type: acute cystitis Hematuria presence: without hematuria Qualified Code(s): N30.00 - Acute cystitis without hematuria Status: Acute Plan: ADMIT, NORMAL SALINE AT KVO, ROCEPHIN 1G IV DAILY, GI COCKTAIL ML QID, COLACE 100MG HS, MILK OF MAGNESIA 30ML HS, ZOFRAN 4MG IV Q6H PRN. HER HOME MEDICATIONS OF ELIQUIS, COREG, KLONOPIN, CATAPRES, ESTRACE, LASIX, NORCO, SYNTHROID, HEMOCYTE PLUS, NITROSTAT, PROTONIX, AND POTASSIUM WERE RESUMED. (2) Brain TIA Status: Acute (3) Altered mental status Qualifiers: Altered mental status type: transient alteration of awareness Qualified Code(s): R40.4 - Transient alteration of awareness Status: Acute (4) Headache Qualifiers: Headache type: unspecified Headache chronicity pattern: acute headache Intractability: not intractable Qualified Code(s): R51.9 - Headache, unspecified Status: Acute (5) Essential hypertension Status: Chronic (6) Hyperlipidemia Qualifiers: Hyperlipidemia type: mixed hyperlipidemia Qualified Code(s): E78.2 - Mixed hyperlipidemia Status: Chronic (7) CANDACE (generalized anxiety disorder) Status: Chronic (8) GERD (gastroesophageal reflux disease) Qualifiers: Esophagitis presence: without esophagitis Qualified Code(s): K21.9 - Gastro-esophageal reflux disease without esophagitis Status: Chronic (9) Atrial fibrillation Qualifiers: Atrial fibrillation type: unspecified Qualified Code(s): I48.91 - Unspecified atrial fibrillation Status: Chronic - Allergies Allergies/Adverse Reactions: Allergies Allergy/AdvReac Type Severity Reaction Status Date / Time prednisone Allergy Verified 03/31/21 08:31 zolpidem [From Ambien] Allergy Verified 04/14/22 11:23
[2022-04-16] MEDS: NORCO 10/325 TAB PO PRN ×4 (05:24→23:56)
[2022-04-16 05:34] LABS: BASOPHILS % (AUTO) 0.6 % (0.2-1.0); EOSINOPHILS # (AUTO) 0.1 x10^3/uL (0.0-0.2); HEMATOCRIT 30.7 % (36.0-47.0); HEMOGLOBIN 10.1 g/dL (12.0-16.0); LYMPHOCYTES # (AUTO) 0.7 X10^3/uL (1.3-2.9); LYMPHOCYTES % (AUTO) 12.9 % (21.0-51.0); MEAN CORPUSCULAR HEMOGLOBIN 26.2 pg (27.0-34.0); MEAN CORPUSCULAR HGB CONC 32.9 g/dL (33.0-35.0); MEAN CORPUSCULAR VOLUME 79.5 fL (80.0-100.0); MEAN PLATELET VOLUME 8.1 fL (7.4-11.0); MONOCYTES # (AUTO) 0.6 x10^3/uL (0.3-0.8); MONOCYTES % (AUTO) 10.7 % (0.0-13.0); NEUTROPHILS # (AUTO) 4.2 x10^3/uL (2.2-4.8); NEUTROPHILS % (AUTO) 73.8 % (42.0-75.0); RED BLOOD COUNT 3.86 X10^6/uL (3.5-5.4); WHITE BLOOD COUNT 5.7 X10^3/uL (3.6-10.0)
[2022-04-16 05:47] LABS: ALANINE AMINOTRANSFERASE < 6 Units/L (12-78); ALBUMIN 2.7 g/dL (3.4-5.0); ALKALINE PHOSPHATASE 77 Units/L (46-116); ASPARTATE AMINO TRANSFERASE 12 Units/L (15-37); BLOOD UREA NITROGEN 10 mg/dL (7-18); CALCIUM 8.7 mg/dL (8.5-10.1); CARBON DIOXIDE 30.2 mmol/L (21-32); CHLORIDE 103 mmol/L (98-107); COR CA(FOR HYPOALB) 9.7 mg/dL (8.5-10.1); SODIUM 139 mmol/L (136-145); TOTAL PROTEIN 5.5 g/dL (6.4-8.2); eGFR NON BLACK RACES > 60 (>60)
[2022-04-16 05:49] LABS: ANISOCYTOSIS 2+; HYPOCHROMASIA SLIGHT; MICROCYTOSIS SLIGHT; PLATELET MORPHOLOGY COMMENT NORMAL (NORMAL)
[2022-04-16 05:50] LABS: OVALOCYTES PRESENT; SCHISTOCYTES PRESENT
[2022-04-16] MEDS ORDERED: SYNTHROID 150 mcg TAB PO SCH (09:00)
[2022-04-16] MEDS: LEVSIN/MAALOX/LIDOC VISC PO SCH ×4 (09:19→20:32)
[2022-04-16] MEDS: ESTRACE PO SCH (09:19)
[2022-04-16] MEDS: HEMOCYTE-PLUS PO SCH (09:20)
[2022-04-16] MEDS: ELIQUIS PO SCH ×2 (09:20→20:30)
[2022-04-16] MEDS: MICRO K EXTEN CAP 10 MEQ PO SCH (09:20)
[2022-04-16] MEDS: COREG TAB 12.5 MG PO SCH ×2 (09:21→20:30)
[2022-04-16] MEDS: LASIX PO SCH ×2 (09:21→20:31)
[2022-04-16] MEDS: PROTONIX TAB 40 MG PO SCH ×2 (09:21→20:31)
[2022-04-16] MEDS: ZOFRAN INJ 4 MG VIAL IVP PRN (17:18)
[2022-04-16] MEDS: NITROSTAT SL PRN ×2 (20:29→20:38)
[2022-04-16] MEDS: COLACE CAP 100 MG PO SCH (20:31)
[2022-04-16] MEDS: MILK OF MAGNESIA PO SCH (20:32)
[2022-04-16] MEDS: ROCEPHIN VIAL 1 GRAM 1 G in NS 100 ML IV 100 ML IV SCH (20:32)
[2022-04-16] MEDS ORDERED: KLONOPIN TAB 1 MG PO SCH (21:00)
--- NOTE | 2022-04-16 21:06 | PCM.PROG ---
Progress Note - Progress Note for Day of Date of Exam: 04/16/22 - Subjective Subjective: IS CURRENTLY OBSERVATION STATUS FOR TREATMENT OF ALTERED MENTAL STATUS, UTI, AND TIA. HER PMH INCLUDES: ANXIETY, CHF, CAD, DYSLIPIDEMIA, HTN, APPENDECTOMY, CHOLECYSTECTOMY, AND HYSTERECTOMY. TODAY, SHE IS ALERT AND ORIENTED, LYING IN BED ON MORNING ROUNDS. SHE COMPLAINS OF GENERALIZED WEAKNESS TODAY. SHE DENIES HEADACHE THIS MORNING. NURSING STAFF REPORTS THAT SHE CONTINUES WITH CONFUSION AT TIMES. ON EXAMINATION, HEART IS REGULAR IN RATE AND RHYTHM. BILATERAL LUNGS ARE NOTED WITH DIMINISHED LUNG SOUNDS THROUGHOUT. ABDOMEN IS ROUND, SOFT, AND NON-TENDER WITH NORMAL BOWEL SOUNDS NOTED IN ALL QUADRANTS. NO UPPER OR LOWER EXTREMITY EDEMA NOTED. HER VITALS THIS MORNING ARE: 98.6-92-20-95%-137/86. LABS WERE OBTAINED. WBC 5.7, RBC 3.86, HGB 10.1, HCT 30.7, PLT COUNT 274, SODIUM 139, POTASSIUM 3.6, CHLORIDE 103, BUN 10, CREATININE 0.80, GLUCOSE 83, CALCIUM 8.7, AST 12, ALT <6, ALK PHOS 77, TOTAL PROTEIN 5.5, ALBUMIN 2.7. CHEMICAL SUPERVISOR HAS INTERMITTENTLY SHOWN ATRIAL FIBRILLATION. SHE IS CURRENTLY RECEIVING NORMAL SALINE AT KVO, ROCEPHIN 1G IV DAILY, GI COCKTAIL ML QID, COLACE 100MG HS, MILK OF MAGNESIA 30ML HS, ZOFRAN 4MG IV Q6H PRN. HER HOME MEDICATIONS OF ELIQUIS, COREG, KLONOPIN, CATAPRES, ESTRACE, LASIX, NORCO, SYNTHROID, HEMOCYTE PLUS, NITROSTAT, PROTONIX, AND POTASSIUM WERE RESUMED. WE WILL CONTINUE WITH CURRENT PLAN OF CARE TODAY. OTHERWISE, WE WILL FOLLOW-UP WITH AM LABS AND CONTINUE TO MONITOR. TIME SPENT ON CLINICAL ASSESSMENT, REVIEWING LABS AND IMAGING, DECISION MAKING, AND DOCUMENTATION GREATER THAN 45 MINUTES. - Past Medical Family Social History Past Med/Fam/Surg Hx: No changes since H&P Allergies: Allergies prednisone Allergy (Verified 03/31/21 08:31) zolpidem [From Ambien] Allergy (Verified 04/14/22 11:23) - Review of Systems ROS: No change since H&P - Vital Signs and I&O's Vital Signs: Temperature 98.5 F Pulse Rate [Right Radial] 77 Pulse Rate 67 Respiratory Rate 16 Blood Pressure [Right Arm] 140/72 Blood Pressure [Left Arm] 187/89 Blood Pressure 158/72 O2 Sat by Pulse Oximetry 96 Intake and Output: Intake & Output 04/14/22 04/15/22 04/16/22 04/17/22 11:59 11:59 11:59 11:59 Intake Total 540 / 540 640 / 640 280 / 280 Balance 540 / 540 640 / 640 280 / 280 - Physical Exam Oriented: Normal Eyes: Normal Ear: Normal Nose: Normal Throat: Normal Respiratory: Generalized, Diminished Cardiovascular: Irregular (A-FIB) : Normal Auscultation: Bowel Sounds: Normal Palpation: Normal Tenderness: Normal Skin: Normal Musculoskeletal: Normal Psychiatric: Normal Mood Description: Calm Affect: Normal Speech Pattern: Clear, Appropriate - Laboratory and Diagnostics Result Diagrams: 04/16/22 04:48 04/16/22 04:48 Labs: Laboratory WBC 5.7 X10^3/uL (3.6-10.0) 04/16/22 04:48 RBC 3.86 X10^6/uL (3.5-5.4) 04/16/22 04:48 Hgb 10.1 g/dL (12.0-16.0) L 04/16/22 04:48 Hct 30.7 % (36.0-47.0) L 04/16/22 04:48 MCV 79.5 fL (80.0-100.0) L 04/16/22 04:48 MCH 26.2 pg (27.0-34.0) L 04/16/22 04:48 MCHC 32.9 g/dL (33.0-35.0) L 04/16/22 04:48 RDW 24.0 % (11.6-16.5) H 04/16/22 04:48 Plt Count 274 X10^3/uL (150.0-450.0) 04/16/22 04:48 Plt Count Comment Adequate (ADEQUATE) 04/16/22 04:48 MPV 8.1 fL (7.4-11.0) 04/16/22 04:48 Neut % (Auto) 73.8 % (42.0-75.0) 04/16/22 04:48 Lymph % (Auto) 12.9 % (21.0-51.0) L 04/16/22 04:48 [place] % (Auto) 10.7 % (0.0-13.0) 04/16/22 04:48 Eos % (Auto) 2.0 % (0.9-2.9) 04/16/22 04:48 Baso % (Auto) 0.6 % (0.2-1.0) 04/16/22 04:48 Neut # (Auto) 4.2 x10^3/uL (2.2-4.8) 04/16/22 04:48 Lymph # (Auto) 0.7 X10^3/uL (1.3-2.9) L 04/16/22 04:48 [place] # (Auto) 0.6 x10^3/uL (0.3-0.8) 04/16/22 04:48 Eos # (Auto) 0.1 x10^3/uL (0.0-0.2) 04/16/22 04:48 Baso # (Auto) 0.0 X10^3/uL (0.0-0.1) 04/16/22 04:48 Absolute Nucleated RBC 0.0 /100WBC 04/16/22 04:48 Plt Morphology Comment Normal (NORMAL) 04/16/22 04:48 RBC Morphology Abnormal (NORMAL) A 04/16/22 04:48 Hypochromasia Slight A 04/16/22 04:48 Anisocytosis 2+ A 04/16/22 04:48 Microcytosis Slight A 04/16/22 04:48 Ovalocytes Present 04/16/22 04:48 Schistocytes Present 04/16/22 04:48 PT 16.2 SECONDS (11.8-14.3) 04/14/22 11:00 INR Target Range - 04/14/22 11:00 INR 1.35 (0.8-1.3) H 04/14/22 11:00 APTT 32.3 SECONDS (22.9-36.5) 04/14/22 11:00 PTT Comment - 04/14/22 11:00 Fibrinogen 394 mg/dL (239-489) 04/14/22 11:00 Sodium 139 mmol/L (136-145) 04/16/22 04:48 Corrected Sodium TNP 04/16/22 04:48 Potassium 3.6 mmol/L (3.5-5.1) 04/16/22 04:48 Chloride 103 mmol/L (98-107) 04/16/22 04:48 Carbon Dioxide 30.2 mmol/L (21-32) 04/16/22 04:48 BUN 10 mg/dL (7-18) 04/16/22 04:48 Creatinine 0.80 mg/dL (0.55-1.02) 04/16/22 04:48 Est GFR (MDRD) Af Amer > 60 (>60) 04/16/22 04:48 Est GFR (MDRD) Non-Af > 60 (>60) 04/16/22 04:48 Glucose 83 mg/dL (65-99) 04/16/22 04:48 Calcium 8.7 mg/dL (8.5-10.1) 04/16/22 04:48 Corrected Calcium 9.7 mg/dL (8.5-10.1) 04/16/22 04:48 Total Bilirubin 0.40 mg/dL (0.2-1.0) 04/16/22 04:48 AST 12 Units/L (15-37) L 04/16/22 04:48 ALT < 6 Units/L (12-78) L 04/16/22 04:48 Alkaline Phosphatase 77 Units/L (46-116) 04/16/22 04:48 Creatine Kinase 37 Units/L (26-192) 04/14/22 11:00 Troponin I High Sens 41.6 ng/L (4.0-60.0) 04/14/22 11:00 Total Protein 5.5 g/dL (6.4-8.2) L 04/16/22 04:48 Albumin 2.7 g/dL (3.4-5.0) L 04/16/22 04:48 Globulin 2.8 g/dL (2.5-4.5) 04/16/22 04:48 Albumin/Globulin Ratio 1.0 Ratio (1.1-2.1) L 04/16/22 04:48 Triglycerides 111 mg/dL (0-150) 04/14/22 11:00 Cholesterol 154 mg/dL (0-200) 04/14/22 11:00 LDL Cholesterol, Calc 55 mg/dL (0-100) 04/14/22 11:00 HDL Cholesterol 77 mg/dL (40-60) H 04/14/22 11:00 Cholesterol/HDL Ratio 2.0 (0.0-5.0) 04/14/22 11:00 Specimen Type Clean catch urine 04/14/22 17:17 Urine Color Yellow (YELLOW) 04/14/22 17:17 Urine Appearance Clear (CLEAR) 04/14/22 17:17 Urine pH 9.0 (5.0 - 8.0) 04/14/22 17:17 Ur Specific [place] 1.010 (1.000-1.030) 04/14/22 17:17 Urine Protein 2+ (NEGATIVE) 04/14/22 17:17 Urine Glucose (UA) Negative (NEGATIVE) 04/14/22 17:17 Urine Ketones Negative (NEGATIVE) 04/14/22 17:17 Urine Blood Negative (NEGATIVE) 04/14/22 17:17 Urine Nitrite Negative (NEGATIVE) 04/14/22 17:17 Urine Bilirubin Negative (NEGATIVE) 04/14/22 17:17 Urine Urobilinogen 1+ (NORMAL) 04/14/22 17:17 Ur Leukocyte Esterase 1+ (NEGATIVE) 04/14/22 17:17 Urine RBC 0-2 /HPF (0-3) 04/14/22 17:17 Urine WBC 5-10 /HPF (0-5) A 04/14/22 17:17 Ur Squamous Epith Cells Many /HPF (NEGATIVE) 04/14/22 17:17 Urine Bacteria Trace /HPF (NEGATIVE) 04/14/22 17:17 Ur Culture Indicated? No/not indicated 04/14/22 17:17 Stl Occult Blood (IFOB) Positive (NEGATIVE) A 04/16/22 10:22 Blood Type O POSITIVE 04/14/22 11:15 Antibody Screen Positive 04/14/22 11:10 - Plan (1) Urinary tract infection Status: Acute Qualifiers: Urinary tract infection type: acute cystitis Hematuria presence: without hematuria Qualified Code(s): N30.00 - Acute cystitis without hematuria Plan: NORMAL SALINE AT KVO, ROCEPHIN 1G IV DAILY, GI COCKTAIL ML QID, COLACE 100MG HS, MILK OF MAGNESIA 30ML HS, ZOFRAN 4MG IV Q6H PRN. HER HOME MEDICATIONS OF ELIQUIS, COREG, KLONOPIN, CATAPRES, ESTRACE, LASIX, NORCO, SYNTHROID, HEMOCYTE PLUS, NITROSTAT, PROTONIX, AND POTASSIUM WERE RESUMED. (2) Brain TIA Status: Acute (3) Altered mental status Status: Acute Qualifiers: Altered mental status type: transient alteration of awareness Qualified Code(s): R40.4 - Transient alteration of awareness (4) Headache Status: Acute Qualifiers: Headache type: unspecified Headache chronicity pattern: acute headache Intractability: not intractable Qualified Code(s): R51.9 - Headache, unspecified (5) Essential hypertension Status: Chronic (6) Hyperlipidemia Status: Chronic Qualifiers: Hyperlipidemia type: mixed hyperlipidemia Qualified Code(s): E78.2 - Mixed hyperlipidemia (7) CANDACE (generalized anxiety disorder) Status: Chronic (8) GERD (gastroesophageal reflux disease) Status: Chronic Qualifiers: Esophagitis presence: without esophagitis Qualified Code(s): K21.9 - Gastro-esophageal reflux disease without esophagitis (9) Atrial fibrillation Status: Chronic Qualifiers: Atrial fibrillation type: unspecified Qualified Code(s): I48.91 - Unspecified atrial fibrillation
[2022-04-17 05:28] LABS: BASOPHILS # (AUTO) 0.1 X10^3/uL (0.0-0.1); BASOPHILS % (AUTO) 1.2 % (0.2-1.0); EOSINOPHILS # (AUTO) 0.2 x10^3/uL (0.0-0.2); EOSINOPHILS % (AUTO) 2.6 % (0.9-2.9); HEMATOCRIT 33.1 % (36.0-47.0); HEMOGLOBIN 10.8 g/dL (12.0-16.0); LYMPHOCYTES # (AUTO) 0.9 X10^3/uL (1.3-2.9); LYMPHOCYTES % (AUTO) 12.7 % (21.0-51.0); MEAN CORPUSCULAR HEMOGLOBIN 25.6 pg (27.0-34.0); MEAN CORPUSCULAR HGB CONC 32.5 g/dL (33.0-35.0); MEAN CORPUSCULAR VOLUME 78.7 fL (80.0-100.0); MEAN PLATELET VOLUME 8.2 fL (7.4-11.0); MONOCYTES # (AUTO) 0.7 x10^3/uL (0.3-0.8); MONOCYTES % (AUTO) 10.4 % (0.0-13.0); NEUTROPHILS # (AUTO) 5.1 x10^3/uL (2.2-4.8); NEUTROPHILS % (AUTO) 73.1 % (42.0-75.0); RED BLOOD COUNT 4.21 X10^6/uL (3.5-5.4); RED CELL DISTRIBUTION WIDTH 24.5 % (11.6-16.5); WHITE BLOOD COUNT 6.9 X10^3/uL (3.6-10.0)
[2022-04-17 05:43] LABS: ALANINE AMINOTRANSFERASE < 6 Units/L (12-78); ALBUMIN 2.9 g/dL (3.4-5.0); ALKALINE PHOSPHATASE 78 Units/L (46-116); ASPARTATE AMINO TRANSFERASE 11 Units/L (15-37); BLOOD UREA NITROGEN 10 mg/dL (7-18); CALCIUM 8.7 mg/dL (8.5-10.1); CARBON DIOXIDE 30.6 mmol/L (21-32); CHLORIDE 104 mmol/L (98-107); COR CA(FOR HYPOALB) 9.6 mg/dL (8.5-10.1); CREATININE 0.84 mg/dL (0.55-1.02); SODIUM 141 mmol/L (136-145); TOTAL PROTEIN 5.9 g/dL (6.4-8.2); eGFR NON BLACK RACES > 60 (>60)
[2022-04-17 05:47] LABS: ANISOCYTOSIS 3+; HYPOCHROMASIA SLIGHT; MICROCYTOSIS SLIGHT; OVALOCYTES PRESENT; PLATELET MORPHOLOGY COMMENT NORMAL (NORMAL)
[2022-04-17 05:48] LABS: SCHISTOCYTES PRESENT
[2022-04-17] MEDS: NORCO 10/325 TAB PO PRN (07:56)
[2022-04-17 08:33] VITALS: BP 140/75
[2022-04-17] MEDS: PROTONIX TAB 40 MG PO SCH (09:16)
[2022-04-17] MEDS: ELIQUIS PO SCH (09:16)
[2022-04-17] MEDS: HEMOCYTE-PLUS PO SCH (09:17)
[2022-04-17] MEDS: MICRO K EXTEN CAP 10 MEQ PO SCH (09:17)
[2022-04-17] MEDS: LASIX PO SCH (09:17)
[2022-04-17] MEDS: COREG TAB 12.5 MG PO SCH (09:17)
[2022-04-17] MEDS: ESTRACE PO SCH (09:20)
== END 2022-04-17 10:25 | disposition home or self-care (01) ==
LOC: MED/SURG 10:15 → ER 10:15 → MED/SURG 14:50
PROVIDERS: ADMIT Internal Medicine; ATTEND Internal Medicine

== ENCOUNTER 2022-04-28 13:49 | Inpatient (IN) ==
[2022-04-28] MEDS ORDERED: DULCOLAX SUPPOSITORY 10 MG RECTAL ONE (16:39)
[2022-04-28] MEDS: MILK OF MAGNESIA PO SCH ×2 (17:11→20:55)
[2022-04-28] MEDS: MIRALAX POWDER (1 DOSE 17 G) PO SCH (17:11)
[2022-04-28] MEDS: COLACE CAP 100 MG PO SCH ×2 (17:12→20:55)
[2022-04-28] MEDS: TORADOL 30 MG VIAL IVP PRN ×2 (17:12→22:14)
[2022-04-28] MEDS: ZOFRAN INJ 4 MG VIAL IVP PRN ×2 (17:13→20:55)
[2022-04-28 17:18] LABS: EOSINOPHILS % (AUTO) 0.1 % (0.9-2.9); HEMOGLOBIN 11.2 g/dL (12.0-16.0); LYMPHOCYTES # (AUTO) 0.5 X10^3/uL (1.3-2.9); LYMPHOCYTES % (AUTO) 3.8 % (21.0-51.0); MEAN PLATELET VOLUME 8.1 fL (7.4-11.0); MONOCYTES # (AUTO) 1.2 x10^3/uL (0.3-0.8); NEUTROPHILS # (AUTO) 11.3 x10^3/uL (2.2-4.8)
[2022-04-28 17:26] LABS: ALANINE AMINOTRANSFERASE 6 Units/L (12-78); ALBUMIN 3.1 g/dL (3.4-5.0); ALKALINE PHOSPHATASE 101 Units/L (46-116); ASPARTATE AMINO TRANSFERASE 14 Units/L (15-37); BLOOD UREA NITROGEN 12 mg/dL (7-18); CALCIUM 9.1 mg/dL (8.5-10.1); CARBON DIOXIDE 33.7 mmol/L (21-32); CHLORIDE 103 mmol/L (98-107); COR CA(FOR HYPOALB) 9.8 mg/dL (8.5-10.1); COR NA(FOR HYPERGLY) 145 mmol/L (136-145); CREATININE 0.72 mg/dL (0.55-1.02); SODIUM 144 mmol/L (136-145); TOTAL PROTEIN 6.4 g/dL (6.4-8.2); eGFR NON BLACK RACES > 60 (>60)
[2022-04-28] MEDS: NS 1,000 ML IV 1,000 ML IV SCH (17:36)
[2022-04-28 17:44] LABS: BASOPHILS # (AUTO) 0.1 X10^3/uL (0.0-0.1); BASOPHILS % (AUTO) 0.6 % (0.2-1.0); HEMATOCRIT 34.4 % (36.0-47.0); MEAN CORPUSCULAR HEMOGLOBIN 26.1 pg (27.0-34.0); MEAN CORPUSCULAR HGB CONC 32.7 g/dL (33.0-35.0); MONOCYTES % (AUTO) 9.3 % (0.0-13.0); NEUTROPHILS % (AUTO) 86.2 % (42.0-75.0); RED CELL DISTRIBUTION WIDTH 24.8 % (11.6-16.5); WHITE BLOOD COUNT 13.1 X10^3/uL (3.6-10.0)
[2022-04-28] MEDS ORDERED: NS 100 ML IV 100 ML ONE (17:47)
[2022-04-28] MEDS ORDERED: POTASSIUM CHL 60 MEQ/NS 0.45% 500 ML IV PRN (17:48)
[2022-04-28] MEDS ORDERED: POTASSIUM CHL 40 MEQ/NS 0.45% 500 ML IV PRN (17:48)
[2022-04-28] MEDS ORDERED: K-RIDER 10 MEQ/NS 100 ML 10 MEQ/100 ML BAG IV PRN (17:48)
[2022-04-28] MEDS ORDERED: KLOR-CON PO PRN (17:48)
[2022-04-28] MEDS ORDERED: POTASSIUM CHLORIDE LIQ 20 MEQ UDC PO PRN (17:48)
[2022-04-28] MEDS ORDERED: MICRO K EXTEN CAP 10 MEQ PO PRN (17:48)
[2022-04-28 18:28] LABS: PLATELET MORPHOLOGY COMMENT NORMAL (NORMAL)
[2022-04-28 18:29] LABS: ANISOCYTOSIS 3+; HYPOCHROMASIA SLIGHT; OVALOCYTES PRESENT; SCHISTOCYTES PRESENT
[2022-04-28] MEDS: K-DUR TAB 20 MEQ PO PRN (18:46)
[2022-04-28] MEDS: MAGNESIUM SULFATE 1 GRAM/100 mL PREMIX 1 G/100 ML BAG IV PRN ×4 (18:47→23:30)
[2022-04-29] MEDS: TORADOL 30 MG VIAL IVP PRN ×4 (03:33→21:58)
[2022-04-29] MEDS: ZOFRAN INJ 4 MG VIAL IVP PRN ×4 (03:33→21:59)
[2022-04-29] MEDS: NORCO 5/325 MG TAB PO PRN (06:22)
[2022-04-29 06:38] LABS: BASOPHILS % (AUTO) 0.1 % (0.2-1.0); EOSINOPHILS # (AUTO) 0.1 x10^3/uL (0.0-0.2); EOSINOPHILS % (AUTO) 0.6 % (0.9-2.9); HEMOGLOBIN 10.8 g/dL (12.0-16.0); LYMPHOCYTES # (AUTO) 0.4 X10^3/uL (1.3-2.9); LYMPHOCYTES % (AUTO) 2.5 % (21.0-51.0); MEAN CORPUSCULAR HEMOGLOBIN 25.9 pg (27.0-34.0); MEAN CORPUSCULAR HGB CONC 32.7 g/dL (33.0-35.0); MEAN CORPUSCULAR VOLUME 79.4 fL (80.0-100.0); MEAN PLATELET VOLUME 8.1 fL (7.4-11.0); MONOCYTES # (AUTO) 1.6 x10^3/uL (0.3-0.8); MONOCYTES % (AUTO) 10.1 % (0.0-13.0); NEUTROPHILS # (AUTO) 14.2 x10^3/uL (2.2-4.8); NEUTROPHILS % (AUTO) 86.7 % (42.0-75.0); RED BLOOD COUNT 4.15 X10^6/uL (3.5-5.4); RED CELL DISTRIBUTION WIDTH 24.3 % (11.6-16.5); WHITE BLOOD COUNT 16.4 X10^3/uL (3.6-10.0)
[2022-04-29 06:45] LABS: ALANINE AMINOTRANSFERASE 7 Units/L (12-78); ALBUMIN 2.9 g/dL (3.4-5.0); ALKALINE PHOSPHATASE 114 Units/L (46-116); ASPARTATE AMINO TRANSFERASE 15 Units/L (15-37); BLOOD UREA NITROGEN 16 mg/dL (7-18); CALCIUM 8.9 mg/dL (8.5-10.1); CARBON DIOXIDE 31.1 mmol/L (21-32); CHLORIDE 102 mmol/L (98-107); COR CA(FOR HYPOALB) 9.8 mg/dL (8.5-10.1); COR NA(FOR HYPERGLY) 143 mmol/L (136-145); CREATININE 0.79 mg/dL (0.55-1.02); MAGNESIUM 3.1 mg/dL (2.0-2.9); SODIUM 142 mmol/L (136-145); TOTAL PROTEIN 6.2 g/dL (6.4-8.2); eGFR NON BLACK RACES > 60 (>60)
[2022-04-29 06:55] LABS: PLATELET MORPHOLOGY COMMENT NORMAL (NORMAL)
[2022-04-29 06:59] LABS: ANISOCYTOSIS 3+; HYPOCHROMASIA SLIGHT; OVALOCYTES PRESENT; SCHISTOCYTES PRESENT
[2022-04-29] MEDS: COLACE CAP 100 MG PO SCH (09:41)
[2022-04-29] MEDS: MILK OF MAGNESIA PO SCH ×4 (09:42→21:59)
[2022-04-29] MEDS: MIRALAX POWDER (1 DOSE 17 G) PO SCH (09:42)
[2022-04-29] MEDS: NS 1,000 ML IV 1,000 ML IV SCH (09:43)
[2022-04-29] MEDS: NS + KCL 20 MEQ/L 1,000 ML IV SCH ×2 (12:07→22:03)
[2022-04-29] MEDS: K-DUR TAB 20 MEQ PO PRN (12:07)
--- NOTE | 2022-04-29 12:45 | CT ---
HISTORYPatient reports that when she uses a suppository that she will have a small hard ball of stool that is the size of a marble. symptoms of generalized abdominal pain, nausea, and decreased appetite.STUDYABDOMEN/PELVIS WITH PMCAHDOTIEIQX96/03/2022.TECHNIQUEMultipl e axial images of the abdomen and pelvis were obtained from the lung bases to the pubic symphysis after the administration of IV contrast. Dose reduction techniques including Automated Exposure Control (AEC) and adjustment of mA and kV were utilized.FINDINGSHeart size is mildly enlarged. There is atherosclerosis in the LAD, RCA, circumflex. There is a moderate hiatal hernia. There is a small to moderate right pleural effusion. The right lung bases are grossly clear. The liver is grossly normal. The gallbladder has been removed. Pancreas is normal. Spleen is enlarged at 15.0 cm in diameter. The adrenal glands are normal. There is some mild renal cortical thinning on the left side. There is a small simple cyst in the right kidney. There is no stone or hydronephrosis. There is no abnormal dilation of the small bowel. The appendix is not identified but there is no convincing of appendicitis. There is diverticulosis in the distal colon. There is inflammation in the fat surrounding the sigmoid colon and this is suggestive of diverticulitis. There appears to be a small collection of fluid on the left side of the pelvis near the sigmoid colon measuring up to 1.0 x 4.4 cm. Urinary bladder is normal. Uterus has been removed. There is moderate to severe systemic atherosclerosis.IMPRESSION1. Small to moderate right pleural effusion.2. Small to moderate hiatal hernia.3. Splenomegaly.4. Sigmoid diverticulosis and diverticulitis with small fluid collection in the left pelvis. No free air.Electronically signed by: Tristen Dillard (Apr 29, 2022 12:44:53)
--- NOTE | 2022-04-29 12:49 | DR.H&P ---
H&P History & Physical for Day of: H&P Date: 04/29/22 Chief Complaint Chief Complaint: nausea, vomiting, constipation Allergies Allergies Allergy/AdvReac Type Severity Reaction Status Date / Time prednisone Allergy Verified 04/20/22 07:04 zolpidem [From Ambien] Allergy Verified 04/20/22 07:04 History of Present Illness History of Present Illness: Ms Sears is a 76y/o female with multiple comorbidities presented with worsening nausea, vomiting and abdominal pain. Patient reports being constipated and taking stools softners at home but it was not helping. She was recently admitted few weeks ago and underwent EGD which showed esophagitis and erosive gastritis. CTAP was done yesterday, report pending. She did have loose stools this morning, reports having 8 BMs. Her K has been low. Labs reviewed: K 3.1 WBC 16.4 Mg 3.1 CTAP pending Plan: Follow CTAP results, replace K, start hydration with NS + KCl, continue potassium protocol. Start clears. Hold laxatives today as patient is having diarrhea. Send stool for Cx. Mercedes prn. Monitor AM labs/imaging. Past Medical History Past Medical History: Anxiety, CHF, Coronary Artery Disease, Dyslipidemia and Hypertension Past Surgical History Surgical History: Angioplasty/Stents, Appendectomy, Cholecystectomy, Hysterectomy and Tonsillectomy Family History Family Medical History: Diabetes Mellitus, Cancer, [place], Coronary Artery Disease and Hypertension Social History Does any household member use tobacco: No Alcohol Use: None Drug Use: None Medications Home Medications: prednisone Allergy (Verified 04/20/22 07:04) zolpidem [From Ambien] Allergy (Verified 04/20/22 07:04) CONTINUE taking the following medications dicyclomine 10 mg capsule 10 mg PO TID 04/29/22 [History] digoxin 125 mcg (0.125 mg) tablet 125 mcg PO QDAY 04/29/22 [History] polyethylene glycol 3350 17 gram oral powder packet 17 g PO QDAY 04/29/22 [History] Labs Result Diagrams: 04/29/22 06:04 04/29/22 06:04 Labs: Laboratory WBC 16.4 X10^3/uL (3.6-10.0) H 04/29/22 06:04 RBC 4.15 X10^6/uL (3.5-5.4) 04/29/22 06:04 Hgb 10.8 g/dL (12.0-16.0) L 04/29/22 06:04 Hct 33.0 % (36.0-47.0) L 04/29/22 06:04 MCV 79.4 fL (80.0-100.0) L 04/29/22 06:04 MCH 25.9 pg (27.0-34.0) L 04/29/22 06:04 MCHC 32.7 g/dL (33.0-35.0) L 04/29/22 06:04 RDW 24.3 % (11.6-16.5) H 04/29/22 06:04 Plt Count 395 X10^3/uL (150.0-450.0) 04/29/22 06:04 Plt Count Comment Adequate (ADEQUATE) 04/29/22 06:04 MPV 8.1 fL (7.4-11.0) 04/29/22 06:04 Neut % (Auto) 86.7 % (42.0-75.0) H 04/29/22 06:04 Lymph % (Auto) 2.5 % (21.0-51.0) L 04/29/22 06:04 [place] % (Auto) 10.1 % (0.0-13.0) 04/29/22 06:04 Eos % (Auto) 0.6 % (0.9-2.9) L 04/29/22 06:04 Baso % (Auto) 0.1 % (0.2-1.0) L 04/29/22 06:04 Neut # (Auto) 14.2 x10^3/uL (2.2-4.8) H 04/29/22 06:04 Lymph # (Auto) 0.4 X10^3/uL (1.3-2.9) L 04/29/22 06:04 [place] # (Auto) 1.6 x10^3/uL (0.3-0.8) H 04/29/22 06:04 Eos # (Auto) 0.1 x10^3/uL (0.0-0.2) 04/29/22 06:04 Baso # (Auto) 0.0 X10^3/uL (0.0-0.1) 04/29/22 06:04 Absolute Nucleated RBC 0.0 /100WBC 04/29/22 06:04 Plt Morphology Comment Normal (NORMAL) 04/29/22 06:04 RBC Morphology Abnormal (NORMAL) A 04/29/22 06:04 Hypochromasia Slight A 04/29/22 06:04 Anisocytosis 3+ A 04/29/22 06:04 Ovalocytes Present 04/29/22 06:04 Schistocytes Present 04/29/22 06:04 Sodium 142 mmol/L (136-145) 04/29/22 06:04 Corrected Sodium 143 mmol/L (136-145) 04/29/22 06:04 Potassium 3.1 mmol/L (3.5-5.1) L 04/29/22 06:04 Chloride 102 mmol/L (98-107) 04/29/22 06:04 Carbon Dioxide 31.1 mmol/L (21-32) 04/29/22 06:04 BUN 16 mg/dL (7-18) 04/29/22 06:04 Creatinine 0.79 mg/dL (0.55-1.02) 04/29/22 06:04 Est GFR (MDRD) Af Amer > 60 (>60) 04/29/22 06:04 Est GFR (MDRD) Non-Af > 60 (>60) 04/29/22 06:04 Glucose 133 mg/dL (65-99) H 04/29/22 06:04 Calcium 8.9 mg/dL (8.5-10.1) 04/29/22 06:04 Corrected Calcium 9.8 mg/dL (8.5-10.1) 04/29/22 06:04 Magnesium 3.1 mg/dL (2.0-2.9) H 04/29/22 06:04 Total Bilirubin 1.00 mg/dL (0.2-1.0) 04/29/22 06:04 AST 15 Units/L (15-37) 04/29/22 06:04 ALT 7 Units/L (12-78) L 04/29/22 06:04 Alkaline Phosphatase 114 Units/L (46-116) 04/29/22 06:04 Total Protein 6.2 g/dL (6.4-8.2) L 04/29/22 06:04 Albumin 2.9 g/dL (3.4-5.0) L 04/29/22 06:04 Globulin 3.3 g/dL (2.5-4.5) 04/29/22 06:04 Albumin/Globulin Ratio 0.9 Ratio (1.1-2.1) L 04/29/22 06:04 Review of Systems Constitutional: Weakness Eyes: No Symptoms Reported ENT: No Symptoms Reported Respiratory: No Symptoms Reported Cardiovascular: No Symptoms Reported Gastrointestinal: Nausea, Vomiting, Abdominal Pain and Constipation Musculoskeletal: No Symptoms Reported Skin: No Symptoms Reported Neurological: No Symptoms Reported Physical Exam Vital Signs: Temperature 98.2 F Pulse Rate [Left Brachial] 94 Respiratory Rate 18 Blood Pressure [Right Arm] 124/69 Blood Pressure [Left Arm] 157/71 Blood Pressure 150/72 O2 Sat by Pulse Oximetry 96 Oriented: Normal Eyes: Normal Ear: Normal Throat: Normal Respiratory: Clear Throughout Cardiovascular: Normal Auscultation: Bowel Sounds: Increased Tenderness: Periumbilical, Suprapubic and Mild Skin: Decreased [place] Musculoskeletal: Normal Psychiatric: Normal Mood Description: Calm Affect: Normal Speech Pattern: Clear and Appropriate Assessment/Plan (1) Intractable nausea and vomiting: Status: Acute (2) Hypokalemia: Status: Acute (3) Constipation: Status: Acute (4) Dehydration: Status: Acute (5) Hypomagnesemia: Status: Acute (6) Esophagitis: Status: Acute (7) Erosive gastritis: Status: Acute (8) Coronary artery disease: Status: Chronic (9) Essential hypertension: Status: Chronic Review H&P Reviewed: Yes Patient was examined?: Yes
[2022-04-29] MEDS: COREG TAB 12.5 MG PO SCH ×2 (13:04→21:55)
[2022-04-29] MEDS: PROTONIX TAB 40 MG PO SCH ×2 (13:05→21:56)
[2022-04-29] MEDS: BENTYL CAP 10 MG PO SCH ×2 (13:05→21:56)
[2022-04-29] MEDS: LANOXIN or DIGITEK PO SCH (13:31)
[2022-04-29 15:18] VITALS: BMI 25.0
[2022-04-29] MEDS: KLONOPIN TAB 0.5 MG PO SCH (21:55)
[2022-04-29] MEDS: ELIQUIS PO SCH (21:57)
[2022-04-29] MEDS: CIPRO IV 400 MG PREMIX* 400 MG/200 ML IV.SOLN. IV SCH (21:57)
[2022-04-29] MEDS: FLAGYL IV PREMIX 500 MG BAG 500 MG/100 ML BAG IV SCH (21:58)
[2022-04-30] MEDS: NS + KCL 20 MEQ/L 1,000 ML IV SCH ×3 (00:44→19:19)
[2022-04-30] MEDS: FLAGYL IV PREMIX 500 MG BAG 500 MG/100 ML BAG IV SCH ×3 (05:26→21:37)
[2022-04-30] MEDS: BENTYL CAP 10 MG PO SCH ×3 (05:27→21:17)
[2022-04-30 06:38] LABS: BASOPHILS % (AUTO) 0.3 % (0.2-1.0); EOSINOPHILS # (AUTO) 0.2 x10^3/uL (0.0-0.2); EOSINOPHILS % (AUTO) 1.1 % (0.9-2.9); HEMATOCRIT 34.8 % (36.0-47.0); HEMOGLOBIN 11.3 g/dL (12.0-16.0); LYMPHOCYTES # (AUTO) 0.5 X10^3/uL (1.3-2.9); LYMPHOCYTES % (AUTO) 3.4 % (21.0-51.0); MEAN CORPUSCULAR HEMOGLOBIN 25.9 pg (27.0-34.0); MEAN CORPUSCULAR HGB CONC 32.4 g/dL (33.0-35.0); MEAN PLATELET VOLUME 8.5 fL (7.4-11.0); MONOCYTES # (AUTO) 1.3 x10^3/uL (0.3-0.8); MONOCYTES % (AUTO) 8.9 % (0.0-13.0); NEUTROPHILS # (AUTO) 12.7 x10^3/uL (2.2-4.8); NEUTROPHILS % (AUTO) 86.3 % (42.0-75.0); RED BLOOD COUNT 4.34 X10^6/uL (3.5-5.4); RED CELL DISTRIBUTION WIDTH 24.3 % (11.6-16.5); WHITE BLOOD COUNT 14.7 X10^3/uL (3.6-10.0)
[2022-04-30 06:45] LABS: ALANINE AMINOTRANSFERASE 7 Units/L (12-78); ALBUMIN 2.8 g/dL (3.4-5.0); ALKALINE PHOSPHATASE 112 Units/L (46-116); ASPARTATE AMINO TRANSFERASE 17 Units/L (15-37); BLOOD UREA NITROGEN 27 mg/dL (7-18); CALCIUM 8.8 mg/dL (8.5-10.1); CARBON DIOXIDE 29.3 mmol/L (21-32); CHLORIDE 103 mmol/L (98-107); COR CA(FOR HYPOALB) 9.8 mg/dL (8.5-10.1); SODIUM 140 mmol/L (136-145); TOTAL PROTEIN 6.2 g/dL (6.4-8.2); eGFR NON BLACK RACES 57 (>60)
[2022-04-30 07:03] LABS: ANISOCYTOSIS 3+; HYPOCHROMASIA SLIGHT; PLATELET MORPHOLOGY COMMENT NORMAL (NORMAL)
[2022-04-30 07:04] LABS: OVALOCYTES PRESENT
[2022-04-30 07:08] LABS: SCHISTOCYTES PRESENT
[2022-04-30] MEDS: CIPRO IV 400 MG PREMIX* 400 MG/200 ML IV.SOLN. IV SCH ×2 (08:46→20:32)
[2022-04-30] MEDS: SYNTHROID 150 mcg TAB PO SCH (08:47)
[2022-04-30] MEDS: COREG TAB 12.5 MG PO SCH ×2 (08:47→20:31)
[2022-04-30] MEDS: ESTRACE PO SCH (08:47)
[2022-04-30] MEDS: PROTONIX TAB 40 MG PO SCH ×2 (08:47→20:31)
[2022-04-30] MEDS: ELIQUIS PO SCH ×2 (08:47→20:31)
[2022-04-30] MEDS: LANOXIN or DIGITEK PO SCH (08:48)
[2022-04-30] MEDS ORDERED: COLACE CAP 100 MG PO SCH (09:00)
[2022-04-30] MEDS: TORADOL 30 MG VIAL IVP PRN ×3 (09:03→20:54)
[2022-04-30] MEDS: MILK OF MAGNESIA PO SCH (09:03)
[2022-04-30] MEDS: ZOFRAN INJ 4 MG VIAL IVP PRN ×2 (09:08→15:04)
--- NOTE | 2022-04-30 12:34 | PCM.PROG ---
Progress Note Progress Note for Day of Date of Exam: 04/30/22 Subjective Subjective: Patient seen at bedside, no acute events overnight. She continues to have diarrhea, 8-10 BMs this morning. She had some nausea, no vomiting. She states abdominal pain is better. CTAP showed sigmoid diverticulitis. She was started on IV Cipro and Flagyl. Stool cx was negative. Labs/imaging reviewed Plan: Continue IV Cipro and Flagyl. Continue hydration, Replace K. Change diet to full liquid. Monitor stool output. Hold all laxatives. Zofran prn. Continue home medications. Ambulate prn. Monitor AM labs. Past Medical Family Social History Allergies: Allergies prednisone Allergy (Verified 04/20/22 07:04) zolpidem [From Ambien] Allergy (Verified 04/20/22 07:04) Vital Signs and I&O's Vital Signs: Temperature 97.9 F Pulse Rate [Left Brachial] 94 Pulse Rate 94 Respiratory Rate 20 Blood Pressure [Right Arm] 141/82 Blood Pressure [Left Arm] 136/65 Blood Pressure 150/72 O2 Sat by Pulse Oximetry 95 Intake and Output: Intake & Output 04/27/22 04/28/22 04/29/22 04/30/22 23:59 23:59 23:59 23:59 Intake Total 800 / 800 1411 / 1411 860 / 860 Output Total 5 / 5 3 / 3 Balance 795 / 795 1408 / 1408 860 / 860 Physical Exam Oriented: Normal Eyes: Normal Ear: Normal Throat: Normal Respiratory: Normal Cardiovascular: Normal Auscultation: Bowel Sounds: Normal Tenderness: Periumbilical, Suprapubic and Mild Skin: Decreased [place] Musculoskeletal: Normal Psychiatric: Normal Mood Description: Calm Affect: Normal Speech Pattern: Clear and Appropriate Laboratory and Diagnostics Result Diagrams: 04/30/22 06:00 04/30/22 06:00 Labs: 04/29/22 14:45 Stool - Final Laboratory WBC 14.7 X10^3/uL (3.6-10.0) H 04/30/22 06:00 RBC 4.34 X10^6/uL (3.5-5.4) 04/30/22 06:00 Hgb 11.3 g/dL (12.0-16.0) L 04/30/22 06:00 Hct 34.8 % (36.0-47.0) L 04/30/22 06:00 MCV 80.0 fL (80.0-100.0) 04/30/22 06:00 MCH 25.9 pg (27.0-34.0) L 04/30/22 06:00 MCHC 32.4 g/dL (33.0-35.0) L 04/30/22 06:00 RDW 24.3 % (11.6-16.5) H 04/30/22 06:00 Plt Count 358 X10^3/uL (150.0-450.0) 04/30/22 06:00 Plt Count Comment Adequate (ADEQUATE) 04/30/22 06:00 MPV 8.5 fL (7.4-11.0) 04/30/22 06:00 Neut % (Auto) 86.3 % (42.0-75.0) H 04/30/22 06:00 Lymph % (Auto) 3.4 % (21.0-51.0) L 04/30/22 06:00 [place] % (Auto) 8.9 % (0.0-13.0) 04/30/22 06:00 Eos % (Auto) 1.1 % (0.9-2.9) 04/30/22 06:00 Baso % (Auto) 0.3 % (0.2-1.0) 04/30/22 06:00 Neut # (Auto) 12.7 x10^3/uL (2.2-4.8) H 04/30/22 06:00 Lymph # (Auto) 0.5 X10^3/uL (1.3-2.9) L 04/30/22 06:00 [place] # (Auto) 1.3 x10^3/uL (0.3-0.8) H 04/30/22 06:00 Eos # (Auto) 0.2 x10^3/uL (0.0-0.2) 04/30/22 06:00 Baso # (Auto) 0.0 X10^3/uL (0.0-0.1) 04/30/22 06:00 Absolute Nucleated RBC 0.0 /100WBC 04/30/22 06:00 Plt Morphology Comment Normal (NORMAL) 04/30/22 06:00 RBC Morphology Abnormal (NORMAL) A 04/30/22 06:00 Hypochromasia Slight A 04/30/22 06:00 Anisocytosis 3+ A 04/30/22 06:00 Ovalocytes Present 04/30/22 06:00 Schistocytes Present 04/30/22 06:00 Sodium 140 mmol/L (136-145) 04/30/22 06:00 Corrected Sodium TNP 04/30/22 06:00 Potassium 3.4 mmol/L (3.5-5.1) L 04/30/22 06:00 Chloride 103 mmol/L (98-107) 04/30/22 06:00 Carbon Dioxide 29.3 mmol/L (21-32) 04/30/22 06:00 BUN 27 mg/dL (7-18) H 04/30/22 06:00 Creatinine 1.00 mg/dL (0.55-1.02) 04/30/22 06:00 Est GFR (MDRD) Af Amer > 60 (>60) 04/30/22 06:00 Est GFR (MDRD) Non-Af 57 (>60) L 04/30/22 06:00 Glucose 100 mg/dL (65-99) H 04/30/22 06:00 Calcium 8.8 mg/dL (8.5-10.1) 04/30/22 06:00 Corrected Calcium 9.8 mg/dL (8.5-10.1) 04/30/22 06:00 Magnesium 3.1 mg/dL (2.0-2.9) H 04/29/22 06:04 Total Bilirubin 0.80 mg/dL (0.2-1.0) 04/30/22 06:00 AST 17 Units/L (15-37) 04/30/22 06:00 ALT 7 Units/L (12-78) L 04/30/22 06:00 Alkaline Phosphatase 112 Units/L (46-116) 04/30/22 06:00 Total Protein 6.2 g/dL (6.4-8.2) L 04/30/22 06:00 Albumin 2.8 g/dL (3.4-5.0) L 04/30/22 06:00 Globulin 3.4 g/dL (2.5-4.5) 04/30/22 06:00 Albumin/Globulin Ratio 0.8 Ratio (1.1-2.1) L 04/30/22 06:00 Stl Occult Blood (IFOB) Positive (NEGATIVE) A 04/29/22 14:45 Stool for White Cells Negative (NEGATIVE) 04/29/22 14:45 Digoxin < 0.30 ng/mL (0.9-2) L 04/29/22 06:04 Plan (1) Sigmoid diverticulitis: Status: Acute (2) Intractable nausea and vomiting: Status: Acute (3) Hypokalemia: Status: Acute (4) Dehydration: Status: Acute (5) Hypomagnesemia: Status: Acute (6) Esophagitis: Status: Acute (7) Erosive gastritis: Status: Acute (8) Coronary artery disease: Status: Chronic (9) Essential hypertension: Status: Chronic
[2022-04-30 12:35] LABS: BILIRUBIN,URINE 2+ (NEGATIVE); BLOOD/HEMOGLOBIN,URINE 1+ (NEGATIVE); GLUCOSE, URINE NEGATIVE (NEGATIVE); KETONES,URINE 1+ (NEGATIVE); LEUKOCYTE ESTERASE ,URINE 2+ (NEGATIVE); NITRITES,URINE POSITIVE (NEGATIVE); PROTEIN,URINE 4+ (NEGATIVE); UROBILINOGEN,URINE 2+ (NORMAL)
[2022-04-30 12:40] LABS: APPEARANCE,URINE SLIGHTLY HAZY (CLEAR); COLOR,URINE BROWN (YELLOW)
[2022-04-30 12:41] LABS: BACTERIA,URINE NEGATIVE /HPF (NEGATIVE); SQUAMOUS EPITHELIAL CELL,UR FEW /HPF (NEGATIVE)
[2022-04-30] MEDS ORDERED: BUTT CREAM (COMPOUND) TOP PRN (14:33)
[2022-04-30] MEDS: KLONOPIN TAB 0.5 MG PO SCH (20:30)
[2022-04-30] MEDS: NORCO 5/325 MG TAB PO PRN (20:52)
[2022-05-01] MEDS: NS + KCL 20 MEQ/L 1,000 ML IV SCH ×4 (03:42→14:41)
[2022-05-01] MEDS: BENTYL CAP 10 MG PO SCH ×3 (05:16→21:31)
[2022-05-01] MEDS: FLAGYL IV PREMIX 500 MG BAG 500 MG/100 ML BAG IV SCH ×3 (05:16→21:32)
[2022-05-01 06:15] LABS: BASOPHILS % (AUTO) 0.2 % (0.2-1.0); EOSINOPHILS # (AUTO) 0.3 x10^3/uL (0.0-0.2); EOSINOPHILS % (AUTO) 2.8 % (0.9-2.9); HEMATOCRIT 30.5 % (36.0-47.0); HEMOGLOBIN 9.9 g/dL (12.0-16.0); LYMPHOCYTES # (AUTO) 0.6 X10^3/uL (1.3-2.9); LYMPHOCYTES % (AUTO) 5.8 % (21.0-51.0); MEAN CORPUSCULAR HEMOGLOBIN 26.4 pg (27.0-34.0); MEAN CORPUSCULAR HGB CONC 32.3 g/dL (33.0-35.0); MEAN CORPUSCULAR VOLUME 81.9 fL (80.0-100.0); MEAN PLATELET VOLUME 8.4 fL (7.4-11.0); MONOCYTES # (AUTO) 0.8 x10^3/uL (0.3-0.8); MONOCYTES % (AUTO) 7.9 % (0.0-13.0); NEUTROPHILS # (AUTO) 8.3 x10^3/uL (2.2-4.8); NEUTROPHILS % (AUTO) 83.3 % (42.0-75.0); RED BLOOD COUNT 3.73 X10^6/uL (3.5-5.4)
[2022-05-01 06:20] LABS: ALANINE AMINOTRANSFERASE 6 Units/L (12-78); ALBUMIN 2.4 g/dL (3.4-5.0); ALKALINE PHOSPHATASE 97 Units/L (46-116); ASPARTATE AMINO TRANSFERASE 16 Units/L (15-37); BLOOD UREA NITROGEN 29 mg/dL (7-18); CALCIUM 8.4 mg/dL (8.5-10.1); CARBON DIOXIDE 26.8 mmol/L (21-32); CHLORIDE 107 mmol/L (98-107); COR CA(FOR HYPOALB) 9.7 mg/dL (8.5-10.1); CREATININE 0.96 mg/dL (0.55-1.02); SODIUM 141 mmol/L (136-145); TOTAL PROTEIN 5.1 g/dL (6.4-8.2); eGFR NON BLACK RACES > 60 (>60)
[2022-05-01 06:50] LABS: ANISOCYTOSIS 2+; BURR CELLS SLIGHT; HYPOCHROMASIA SLIGHT; OVALOCYTES 1+; PLATELET MORPHOLOGY COMMENT NORMAL (NORMAL); SCHISTOCYTES SLIGHT
[2022-05-01] MEDS: K-DUR TAB 20 MEQ PO PRN (08:52)
[2022-05-01] MEDS: ESTRACE PO SCH (08:52)
[2022-05-01] MEDS: COREG TAB 12.5 MG PO SCH ×2 (08:53→21:32)
[2022-05-01] MEDS: SYNTHROID 150 mcg TAB PO SCH (08:53)
[2022-05-01] MEDS: LANOXIN or DIGITEK PO SCH (08:53)
[2022-05-01] MEDS: ELIQUIS PO SCH ×2 (08:53→21:32)
[2022-05-01] MEDS: PROTONIX TAB 40 MG PO SCH ×2 (08:53→21:32)
[2022-05-01] MEDS: CIPRO IV 400 MG PREMIX* 400 MG/200 ML IV.SOLN. IV SCH ×2 (08:56→21:32)
[2022-05-01] MEDS: TORADOL 30 MG VIAL IVP PRN ×3 (08:57→21:31)
--- NOTE | 2022-05-01 12:23 | RAD ---
HISTORYABDOMINAL PAINS, INTRACTABLE NAUSEA, CONSTIPATIONSTUDYKUB x-ray one viewCOMPARISONCT 04/28/2022FINDINGSMild increased small and large bowel air is seen without dilation. Phleboliths are seen in the pelvis. Prior cholecystectomy.IMPRESSIONNonspecific mild increased small and large bowel air without dilation.Electronically signed by: Akash Arevalo (May 01, 2022 12:22:08)
[2022-05-01] MEDS: ZOFRAN INJ 4 MG VIAL IVP PRN ×2 (14:52→21:28)
[2022-05-01] MEDS: KLONOPIN TAB 0.5 MG PO SCH (21:31)
[2022-05-02] MEDS: NORCO 5/325 MG TAB PO PRN (03:05)
[2022-05-02] MEDS: NS + KCL 20 MEQ/L 1,000 ML IV SCH (04:30)
[2022-05-02] MEDS: ZOFRAN INJ 4 MG VIAL IVP PRN (04:34)
[2022-05-02] MEDS: TORADOL 30 MG VIAL IVP PRN (04:38)
[2022-05-02] MEDS: BENTYL CAP 10 MG PO SCH (05:18)
[2022-05-02] MEDS: FLAGYL IV PREMIX 500 MG BAG 500 MG/100 ML BAG IV SCH (05:20)
[2022-05-02 06:14] LABS: BASOPHILS % (AUTO) 0.6 % (0.2-1.0); EOSINOPHILS # (AUTO) 0.3 x10^3/uL (0.0-0.2); EOSINOPHILS % (AUTO) 3.4 % (0.9-2.9); HEMATOCRIT 29.3 % (36.0-47.0); HEMOGLOBIN 9.6 g/dL (12.0-16.0); LYMPHOCYTES # (AUTO) 0.6 X10^3/uL (1.3-2.9); LYMPHOCYTES % (AUTO) 7.7 % (21.0-51.0); MEAN CORPUSCULAR HEMOGLOBIN 26.2 pg (27.0-34.0); MEAN CORPUSCULAR HGB CONC 32.6 g/dL (33.0-35.0); MEAN CORPUSCULAR VOLUME 80.3 fL (80.0-100.0); MEAN PLATELET VOLUME 8.1 fL (7.4-11.0); MONOCYTES # (AUTO) 0.7 x10^3/uL (0.3-0.8); MONOCYTES % (AUTO) 9.5 % (0.0-13.0); NEUTROPHILS # (AUTO) 5.8 x10^3/uL (2.2-4.8); NEUTROPHILS % (AUTO) 78.8 % (42.0-75.0); RED BLOOD COUNT 3.65 X10^6/uL (3.5-5.4); WHITE BLOOD COUNT 7.4 X10^3/uL (3.6-10.0)
[2022-05-02 06:37] LABS: ANISOCYTOSIS 2+; BURR CELLS SLIGHT; HYPOCHROMASIA SLIGHT; OVALOCYTES 1+; PLATELET MORPHOLOGY COMMENT NORMAL (NORMAL); SCHISTOCYTES SLIGHT
[2022-05-02 07:25] LABS: CREATININE 0.99 mg/dL (0.55-1.02); MAGNESIUM 2.1 mg/dL (2.0-2.9); eGFR NON BLACK RACES 58 (>60)
[2022-05-02 07:41] LABS: ALANINE AMINOTRANSFERASE 8 Units/L (12-78); ALBUMIN 2.5 g/dL (3.4-5.0); ALKALINE PHOSPHATASE 86 Units/L (46-116); ASPARTATE AMINO TRANSFERASE 15 Units/L (15-37); BLOOD UREA NITROGEN 26 mg/dL (7-18); CALCIUM 8.3 mg/dL (8.5-10.1); CARBON DIOXIDE 26.6 mmol/L (21-32); CHLORIDE 108 mmol/L (98-107); COR CA(FOR HYPOALB) 9.5 mg/dL (8.5-10.1); SODIUM 142 mmol/L (136-145); TOTAL PROTEIN 5.2 g/dL (6.4-8.2)
[2022-05-02] MEDS: COREG TAB 12.5 MG PO SCH (09:12)
[2022-05-02] MEDS: ELIQUIS PO SCH (09:12)
[2022-05-02] MEDS: PROTONIX TAB 40 MG PO SCH (09:12)
[2022-05-02] MEDS: SYNTHROID 150 mcg TAB PO SCH (09:12)
[2022-05-02] MEDS: ESTRACE PO SCH (09:12)
[2022-05-02] MEDS: LANOXIN or DIGITEK PO SCH (09:13)
[2022-05-02] MEDS: CIPRO IV 400 MG PREMIX* 400 MG/200 ML IV.SOLN. IV SCH (09:14)
[2022-05-02 10:24] VITALS: BP 130/64
== END 2022-05-02 11:05 | disposition home or self-care (01) | DRG 392 ==
LOC: MED/SURG
PROVIDERS: ADMIT Internal Medicine; ATTEND Internal Medicine
DX: E83.42 Hypomagnesemia; I10 Essential (primary) hypertension; K92.1 Melena; I25.10 Atherosclerotic heart disease of native coronary artery without angina pectoris; K20.90 Esophagitis, unspecified without bleeding; E86.0 Dehydration; E87.6 Hypokalemia; R10.84 Generalized abdominal pain; K57.32 Diverticulitis of large intestine without perforation or abscess without bleeding; R11.2 Nausea with vomiting, unspecified; K59.09 Other constipation